=== PATIENT | female | born 1955 | race Caucasian/White ===

== ENCOUNTER → 2020-05-16 05:32 | Outpatient (CLI) | payer MEDICARE, OTHER, SELFPAY ==
--- NOTE | 2020-05-16 05:45 | NM_ITS ---
CLINICAL: 65-year-old female with history of right foot pain. LIMITED 99m Tc HMPAO LABELED LEUKOCYTE EXAMINATION COMPARISON: None available FINDINGS: Following the intravenous administration of 17.0 mCi of 99m Tc HMPAO labeled leukocytes, image acquisitions of the distal lower extremities at approximately 2.0 hours post radiopharmaceutical administration reveal: 1. There is symmetric radiopharmaceutical concentration defined in the bilateral visualized lower extremities without evidence of increased tracer distribution with meticulous attention paid to the right hind, mid and forefoot. NM/Inflammatory Process Limited IMPRESSION: 1. NEGATIVE 99m Tc HMPAO labeled leukocyte examination. There is no scintigraphic evidence of abnormal increased tracer distribution on review of the bilateral distal lower extremities. 2. Three phase bone scintigraphy may be of benefit for further evaluation. Electronically Signed: Edwardo Campos DO at 9:29 EDT Tel , Service support ,
== END ==
PROVIDERS: PCP Family Medicine; Referring Provider Podiatrist; Visit Provider Podiatrist
DX: M86.9 Osteomyelitis, unspecified (principal)
CPT/HCPCS: 78801; A9521

== ENCOUNTER → 2021-06-24 12:05 | Outpatient (CLI) | payer MEDICARE, OTHER, SELFPAY ==
[2021-06-24 14:58] LABS: Absolute Lymphocyte Count 1.93 X10^3/uL (0.83-4.51); Absolute Neutrophil Count 4.5 X10^3/uL (2.0-7.7); Basophil# 0.06 X10^3/uL; Basophil% 0.8 % (0-1); Eosinophil# 0.16 X10^3/uL; Eosinophils% 2.1 % (0-5); Hematocrit 33.2 % (37-47); Hemoglobin 10.8 g/dL (12.0-15.0); Lymphocyte # 1.93 X10^3/ul (0.83-4.51); Lymphocyte % 25.2 % (19-41); Mean Corp Hgb Conc 32.5 g/dL (32-36); Mean Corpuscular Hgb 28.3 pg (27.0-32.0); Mean Corpuscular Volume 86.9 fL (81-99); Mean Platelet Vol. 9.4 fl (6.2-12.0); Monocyte# 0.92 X10^3/uL; NRBC Flagged by Analyzer 0 % (0-5); Neutrophil # 4.54 X10^3/uL (2.7-7.7); Neutrophil % 59.1 % (47-70); Platelet Count 400 K/mm3 (150-450); RBC Distribution Width CV 12.3 % (11.6-14.6); RBC Distribution Width SD 39.3 fl (35.1-43.9); Red Blood Count 3.82 M/mm3 (4.2-5.4); White Blood Count 7.7 K/mm3 (4.4-11.0)
== END ==
PROVIDERS: PCP Family Medicine; Referring Provider Internal Medicine Pulmonary Disease; Visit Provider Internal Medicine Pulmonary Disease
DX: J45.50 Severe persistent asthma, uncomplicated (principal)
CPT/HCPCS: 36415; 85025

== ENCOUNTER 2021-09-11 10:03 | Outpatient (CLI) | payer MEDICARE, OTHER, SELFPAY ==
[2021-09-11 10:19] VITALS: BP 136/52; PULSE 73; RESP 18; TEMP 35.8; O2SAT 96; BMI 32.1
[2021-09-11] MEDS: Mepolizumab 100 MG VIAL SQ (11:09)
[2021-09-11 12:07] VITALS: BP 127/53; PULSE 59
== END 2021-09-11 23:59 | disposition short-term general hospital (02) ==
LOC: MEDOUTP 10:05
PROVIDERS: PCP Family Medicine; Referring Provider Internal Medicine Pulmonary Disease; Visit Provider Internal Medicine Pulmonary Disease
DX: J45.50 Severe persistent asthma, uncomplicated (principal)
CPT/HCPCS: 96372; J2182

== ENCOUNTER 2021-09-16 12:27 | Outpatient (CLI) | payer MEDICARE, OTHER, SELFPAY ==
--- NOTE | 2021-09-16 12:30 | RAD_ITS ---
STUDY: X-RAY CHEST REASON FOR EXAM: Female, 66 years old. Difficulty breathing TECHNIQUE: PA and lateral views of the chest. COMPARISON: None. FINDINGS: There are interstitial fibrotic changes of the lungs. There is no demonstrated pleural abnormality. Sternal cerclage wires and vascular clips are present from a prior sternotomy and coronary artery bypass graft procedure (CABG). Normal mediastinum and ivette. Normal visualized pulmonary arteries. Normal visualized aortic arch and descending thoracic aorta. There are diffuse degenerative changes of the visualized thoracic spine. There is degenerative osteoarthritis of the bilateral shoulders. There is no demonstrated abnormality of the visualized soft tissue structures of the upper abdomen. RAD/Chest PA and Lateral IMPRESSION: Chronic interstitial changes, no superimposed acute pulmonary process Electronically Signed: Sina Lagunas MD at 17:28 EST ,
== END 2021-09-16 23:59 | disposition short-term general hospital (02) ==
LOC: MTRAD 12:28
PROVIDERS: PCP Family Medicine; Referring Provider Internal Medicine Pulmonary Disease; Visit Provider Internal Medicine Pulmonary Disease
DX: J45.50 Severe persistent asthma, uncomplicated (principal)
CPT/HCPCS: 71046

== ENCOUNTER 2021-10-09 10:18 | Outpatient (CLI) | payer MEDICARE, OTHER, SELFPAY ==
[2021-10-09 10:34] VITALS: BP 122/56; PULSE 46; RESP 16; TEMP 36.2; O2SAT 98; BMI 32.9
[2021-10-09] MEDS: Mepolizumab 100 MG VIAL SQ (10:43)
[2021-10-09 11:22] VITALS: BP 121/57; PULSE 62; RESP 16; O2SAT 97
== END 2021-10-09 23:59 | disposition home or self-care (01) ==
LOC: MEDOUTP 10:18
PROVIDERS: PCP Family Medicine; Referring Provider Internal Medicine Pulmonary Disease; Visit Provider Internal Medicine Pulmonary Disease
DX: J45.50 Severe persistent asthma, uncomplicated (principal)
CPT/HCPCS: 96372; J2182

== ENCOUNTER 2021-11-06 13:14 | Outpatient (CLI) | payer MEDICARE, OTHER, SELFPAY ==
[2021-11-06 13:26] VITALS: BP 128/62; PULSE 52; RESP 16; TEMP 36.1; O2SAT 94; BMI 33.0
[2021-11-06] MEDS: Mepolizumab 100 MG VIAL SQ (13:43)
== END 2021-11-06 23:59 | disposition home or self-care (01) ==
LOC: MEDOUTP 13:14
PROVIDERS: PCP Family Medicine; Referring Provider Internal Medicine Pulmonary Disease; Visit Provider Internal Medicine Pulmonary Disease
DX: J45.50 Severe persistent asthma, uncomplicated (principal)
CPT/HCPCS: 96372; J2182

== ENCOUNTER → 2021-12-11 | Outpatient (CLI) | payer MEDICARE, OTHER, SELFPAY ==
[2021-12-11 14:10] VITALS: BP 126/55; PULSE 64; RESP 16; TEMP 35.7; O2SAT 96; BMI 33.6
[2021-12-11] MEDS: Mepolizumab 100 MG VIAL SQ (14:28)
[2021-12-11 15:08] VITALS: BP 132/90; PULSE 64; RESP 20; TEMP 35.9; O2SAT 94
== END | disposition home or self-care (01) ==
LOC: MEDOUTP 13:51
PROVIDERS: PCP Family Medicine; Referring Provider Internal Medicine Pulmonary Disease; Visit Provider Internal Medicine Pulmonary Disease
DX: J45.50 Severe persistent asthma, uncomplicated (principal)
CPT/HCPCS: 96372; J2182

== ENCOUNTER → 2021-12-23 | Outpatient (CLI) | payer MEDICARE, OTHER, SELFPAY ==
[2021-12-23 15:48] LABS: Erythrocyte Sedimentation Rate 6 mm/hr (0-30)
[2021-12-23 15:49] LABS: BNP,B-Type NATRIURETIC PEPTIDE 91.7 pg/mL (0-100)
[2021-12-23 16:21] LABS: CRP < 2.90 mg/L (0.0-3.0); Rheumatoid Factor < 10.0 IU/mL (<15)
[2021-12-25 16:11] LABS: ANTINUCLEAR ANTIBODIES DIRECT Positive (Negative)
[2021-12-25 16:15] LABS: Angiotensin Convert Enzyme 35 U/L (14-82)
== END | disposition home or self-care (01) ==
LOC: MTLAB 11:44
PROVIDERS: PCP Family Medicine; Referring Provider Internal Medicine Pulmonary Disease; Visit Provider Internal Medicine Pulmonary Disease
DX: J45.50 Severe persistent asthma, uncomplicated (principal); R06.00 Dyspnea, unspecified
CPT/HCPCS: 36415; 82164; 83880; 85652; 86038; 86140; 86431

== ENCOUNTER → 2021-12-30 | Outpatient (CLI) | payer MEDICARE, OTHER, SELFPAY ==
--- NOTE | 2021-12-30 07:24 | CT_ITS ---
HISTORY: Severe persistent asthma, uncomplicated. TECHNIQUE: Helically acquired images were obtained of the chest without contrast. High-resolution prone images. A radiation dose optimization technique was used for this scan. 809 images. COMPARISON: XR 09/16/2021. FINDINGS: LARGE AIRWAYS: Patent. LUNGS: Very mild peripheral reticular scarring and bronchiectasis. 3 mm groundglass right middle lobe nodule. Very mild bilateral lower lobe groundglass opacities. PLEURA: No pneumothorax or significant pleural effusion. HEART AND PERICARDIUM: Mild cardiomegaly. Midline sternotomy with coronary artery bypass graft. No pericardial effusion. VESSELS: Thoracic aorta nondilated. MEDIASTINUM AND CAPRICE: No pathologically enlarged lymph nodes. UPPER ABDOMEN: Small calcified gallstone. Left suprarenal surgical clips. BONES: Degenerative change. CT/Chest without Contrast IMPRESSION: Very mild bilateral lower lobe groundglass opacities, likely inflammatory. 3 mm right middle lobe groundglass pulmonary nodule. Consider 12 month follow-up. Mild bronchiectasis. Mild cardiomegaly. Electronically Signed: Loida Hall MD at 8:10 EDT ,
== END | disposition home or self-care (01) ==
LOC: CT 07:20
PROVIDERS: PCP Family Medicine; Referring Provider Internal Medicine Pulmonary Disease; Visit Provider Internal Medicine Pulmonary Disease
DX: J45.50 Severe persistent asthma, uncomplicated (principal)
CPT/HCPCS: 71250

== ENCOUNTER → 2022-01-08 | Outpatient (CLI) | payer MEDICARE, OTHER, SELFPAY ==
[2022-01-08 10:33] VITALS: BP 130/49; PULSE 55; RESP 18; TEMP 36.4; O2SAT 96
[2022-01-08] MEDS: Mepolizumab 100 MG VIAL SQ (10:56)
== END | disposition home or self-care (01) ==
LOC: MEDOUTP 10:24
PROVIDERS: PCP Family Medicine; Referring Provider Internal Medicine Pulmonary Disease; Visit Provider Internal Medicine Pulmonary Disease
DX: J45.50 Severe persistent asthma, uncomplicated (principal)
CPT/HCPCS: 96372; J2182

== ENCOUNTER → 2022-02-05 | Outpatient (CLI) | payer MEDICARE, OTHER, SELFPAY ==
[2022-02-05 10:28] VITALS: BP 178/56; PULSE 60; RESP 18; TEMP 36.1; O2SAT 96; BMI 33.5
[2022-02-05] MEDS: Mepolizumab 100 MG VIAL SQ (10:48)
[2022-02-05 11:12] VITALS: BP 153/64
== END | disposition home or self-care (01) ==
LOC: MEDOUTP 10:20
PROVIDERS: PCP Family Medicine; Referring Provider Internal Medicine Pulmonary Disease; Visit Provider Internal Medicine Pulmonary Disease
DX: J45.50 Severe persistent asthma, uncomplicated (principal)
CPT/HCPCS: 96372; J2182

== ENCOUNTER → 2022-02-24 | Outpatient (CLI) | payer MEDICARE, OTHER, SELFPAY ==
--- NOTE | 2022-02-24 08:02 | MRI_ITS ---
STUDY: MRI BRAIN WITH AND WITHOUT CONTRAST REASON FOR EXAM: Female, 66 years old. Idiopathic stabbing headache. TECHNIQUE: Standardized multiplanar fat and water weighted pulse sequences were obtained. 16ML IV DOTAREM was administered for the contrast portion of the examination. COMPARISON: None. FINDINGS: Normal size of the ventricles and extra-axial spaces for the patient''s age. Multiple T2 FLAIR hyperintensity foci in the white matter of both cerebral hemispheres are confluent in the forceps major. They are chronic white matter ischemic changes. None of them enhance with IV contrast. There are no abnormal enhancing lesions intraaxially and extra-axially. Normal bilateral basal ganglia. Normal thalami. There is no extra-axial fluid accumulation. Normal flow voids within the major intracranial circulation suggesting patency by spin echo criteria. Normal venous enhancement. There is no enhancing intra-axial or extra-axial abnormality. Normal sella turcica, pituitary gland, infundibular stalk, optic chiasm and hypothalamus. Normal tectal plate and pineal gland. Normal midbrain, nacho and medulla. Normal cerebellum. Normal basal cisterns. Normal bilateral temporal bones. Normal bilateral internal auditory canals. No demonstrated orbital abnormality, within the constraints of a routine brain study. Normal visualized paranasal sinuses. Normal calvarium and skull base. Normal visualized soft tissue structures. Normal visualized upper cervical spine. MRI/Brain W/WO Contrast IMPRESSION: 1. No MRI evidence of acute or subacute ischemic infarct, intracranial mass or acute intracranial abnormality. 2. Multiple chronic white matter ischemic changes in both cerebral hemispheres. 3. No abnormal enhancing lesions intraaxially and extra-axially. Electronically Signed: Maynor Ibrahim MD at 11:15 EDT ,
[2022-02-24 09:11] LABS: CREATININE FINGERSTICK 1.2 mg/dL (0.55-1.02)
== END | disposition home or self-care (01) ==
LOC: MRI 07:58
PROVIDERS: PCP Family Medicine; Referring Provider Physician Assistant; Visit Provider Physician Assistant
DX: G44.85 Primary stabbing headache (principal)
CPT/HCPCS: 70553; A9575

== ENCOUNTER → 2022-03-02 | Outpatient (CLI) | payer MEDICARE, OTHER, SELFPAY ==
--- NOTE | 2022-03-02 11:59 | RAD_ITS ---
STUDY: X-RAY CHEST REASON FOR EXAM: Female, 66 years old. PERSIS ANT ASTHMA TECHNIQUE: PA and lateral views of the chest. COMPARISON: Comparison is made with prior study dated 09/16/2021. FINDINGS: The lungs are clear and expanded. There is no demonstrated pleural abnormality. Sternal cerclage wires and vascular clips are present from a prior sternotomy and coronary artery bypass graft procedure (CABG). Normal mediastinum and ivette. Normal visualized pulmonary arteries. There is atherosclerotic calcification of the aortic arch with tortuosity. There is demineralization of the osseous structures. Normal visualized ribs, clavicles, and shoulders. Surgical clips are seen in the left upper quadrant. RAD/Chest PA and Lateral IMPRESSION: Stable examination. No acute abnormality is seen. Electronically Signed: Zackary Solo MD at 13:37 EDT ,
== END | disposition home or self-care (01) ==
PROVIDERS: PCP Family Medicine; Referring Provider Internal Medicine Pulmonary Disease; Visit Provider Internal Medicine Pulmonary Disease
DX: J45.50 Severe persistent asthma, uncomplicated (principal)
CPT/HCPCS: 71046

== ENCOUNTER → 2022-03-05 | Outpatient (CLI) | payer MEDICARE, OTHER, SELFPAY ==
[2022-03-05 13:23] VITALS: BP 108/62; PULSE 63; RESP 16; TEMP 36.3; O2SAT 96; BMI 32.7
[2022-03-05] MEDS: Mepolizumab 100 MG VIAL SQ (13:31)
== END | disposition home or self-care (01) ==
LOC: MEDOUTP 13:01
PROVIDERS: PCP Family Medicine; Referring Provider Internal Medicine Pulmonary Disease; Visit Provider Internal Medicine Pulmonary Disease
DX: J45.50 Severe persistent asthma, uncomplicated (principal)
CPT/HCPCS: 96372; J2182

== ENCOUNTER → 2022-04-02 | Outpatient (CLI) | payer MEDICARE, OTHER, SELFPAY ==
[2022-04-02 12:46] VITALS: BP 161/67; PULSE 57; RESP 16; TEMP 35.8; O2SAT 97; BMI 33.3
[2022-04-02] MEDS: Mepolizumab 100 MG VIAL SQ (13:05)
== END | disposition home or self-care (01) ==
LOC: MEDOUTP 12:34
PROVIDERS: PCP Family Medicine; Referring Provider Internal Medicine Pulmonary Disease; Visit Provider Internal Medicine Pulmonary Disease
DX: J45.50 Severe persistent asthma, uncomplicated (principal)
CPT/HCPCS: 96372; J2182

== ENCOUNTER → 2022-04-30 | Outpatient (CLI) | payer MEDICARE, OTHER, SELFPAY ==
[2022-04-30 13:16] VITALS: BP 107/66; PULSE 56; RESP 16; TEMP 36; O2SAT 96; BMI 33.5
[2022-04-30] MEDS: Mepolizumab 100 MG VIAL SQ (13:44)
== END | disposition home or self-care (01) ==
LOC: MEDOUTP 12:57
PROVIDERS: PCP Family Medicine; Referring Provider Internal Medicine Pulmonary Disease; Visit Provider Internal Medicine Pulmonary Disease
DX: J45.50 Severe persistent asthma, uncomplicated (principal)
CPT/HCPCS: 96372; J2182

== ENCOUNTER → 2022-05-28 | Outpatient (CLI) | payer MEDICARE, OTHER, SELFPAY ==
[2022-05-28 14:49] VITALS: BP 146/83; PULSE 55; RESP 18; TEMP 36.1; O2SAT 95; BMI 33.6
[2022-05-28] MEDS: Mepolizumab 100 MG VIAL SQ (15:00)
== END | disposition home or self-care (01) ==
LOC: MEDOUTP 14:43
PROVIDERS: PCP Family Medicine; Referring Provider Internal Medicine Pulmonary Disease; Visit Provider Internal Medicine Pulmonary Disease
DX: J45.50 Severe persistent asthma, uncomplicated (principal)
CPT/HCPCS: 96372; J2182

== ENCOUNTER → 2022-06-25 | Outpatient (CLI) | payer MEDICARE, OTHER, SELFPAY ==
[2022-06-25 13:09] VITALS: BP 155/71; PULSE 52; RESP 16; TEMP 36.3; O2SAT 97
[2022-06-25] MEDS: Mepolizumab 100 MG VIAL SQ (13:23)
== END | disposition home or self-care (01) ==
LOC: MEDOUTP 12:35
PROVIDERS: PCP Family Medicine; Referring Provider Internal Medicine Pulmonary Disease; Visit Provider Internal Medicine Pulmonary Disease
DX: J45.50 Severe persistent asthma, uncomplicated (principal)
CPT/HCPCS: 96372; J2182

== ENCOUNTER → 2022-07-30 | Outpatient (CLI) | payer MEDICARE, OTHER, SELFPAY ==
[2022-07-30 13:03] VITALS: BP 151/58; PULSE 66; RESP 16; TEMP 36.3; O2SAT 93
[2022-07-30] MEDS: Mepolizumab 100 MG VIAL SQ (13:18)
== END | disposition home or self-care (01) ==
LOC: MEDOUTP 12:53
PROVIDERS: PCP Family Medicine; Referring Provider Internal Medicine Pulmonary Disease; Visit Provider Internal Medicine Pulmonary Disease
DX: J45.50 Severe persistent asthma, uncomplicated (principal)
CPT/HCPCS: 96372; J2182

== ENCOUNTER → 2022-08-27 | Outpatient (CLI) | payer MEDICARE, OTHER, SELFPAY ==
[2022-08-27 12:56] VITALS: BP 140/55; PULSE 59; RESP 18; TEMP 36.7; O2SAT 94; BMI 33.0
[2022-08-27] MEDS: Mepolizumab 100 MG VIAL SQ (13:24)
--- NOTE | 2022-08-27 13:28 | NURSING ---
Pt. declines staying for observation following Nucala injection.
== END | disposition home or self-care (01) ==
PROVIDERS: PCP Family Medicine; Referring Provider Internal Medicine Pulmonary Disease; Visit Provider Internal Medicine Pulmonary Disease
DX: J45.50 Severe persistent asthma, uncomplicated (principal)
CPT/HCPCS: 96372; J2182

== ENCOUNTER → 2022-09-24 | Outpatient (CLI) | payer MEDICARE, OTHER, SELFPAY ==
[2022-09-24 13:12] VITALS: BP 139/54; PULSE 55; RESP 16; TEMP 36.1; O2SAT 93
[2022-09-24] MEDS: Mepolizumab 100 MG VIAL SQ (13:31)
== END | disposition home or self-care (01) ==
LOC: MEDOUTP 12:51
PROVIDERS: PCP Family Medicine; Referring Provider Internal Medicine Pulmonary Disease; Visit Provider Internal Medicine Pulmonary Disease
DX: J45.50 Severe persistent asthma, uncomplicated (principal)
CPT/HCPCS: 96372; J2182

== ENCOUNTER → 2022-10-22 | Outpatient (CLI) | payer MEDICARE, OTHER, SELFPAY ==
[2022-10-22 13:28] VITALS: BP 148/62; PULSE 89; RESP 16; TEMP 35.8; O2SAT 93; BMI 33.0
[2022-10-22] MEDS: Mepolizumab 100 MG VIAL SC (13:39)
== END | disposition home or self-care (01) ==
PROVIDERS: PCP Family Medicine; Referring Provider Internal Medicine Pulmonary Disease; Visit Provider Internal Medicine Pulmonary Disease
DX: J45.50 Severe persistent asthma, uncomplicated (principal)
CPT/HCPCS: 96372; J2182

== ENCOUNTER → 2022-11-19 | Outpatient (CLI) | payer MEDICARE, OTHER, SELFPAY ==
[2022-11-19 13:03] VITALS: BP 159/48; PULSE 66; RESP 16; O2SAT 96; BMI 33.3
[2022-11-19] MEDS: Mepolizumab 100 MG VIAL SQ (13:20)
== END | disposition home or self-care (01) ==
LOC: MEDOUTP 12:54
PROVIDERS: PCP Family Medicine; Referring Provider Internal Medicine Pulmonary Disease; Visit Provider Internal Medicine Pulmonary Disease
DX: J45.50 Severe persistent asthma, uncomplicated (principal)
CPT/HCPCS: 96372; J2182

== ENCOUNTER 2022-12-17 12:37 | Outpatient (CLI) | payer MEDICARE, OTHER, SELFPAY ==
[2022-12-17 13:05] VITALS: BP 114/46; PULSE 50; RESP 16; TEMP 36.1; O2SAT 96; BMI 34.4
[2022-12-17] MEDS: Mepolizumab 100 MG VIAL SQ (13:26)
== END 2022-12-17 12:38 | disposition home or self-care (01) ==
LOC: MEDOUTP 12:37
PROVIDERS: PCP Family Medicine; Referring Provider Internal Medicine Pulmonary Disease; Visit Provider Internal Medicine Pulmonary Disease
DX: J45.50 Severe persistent asthma, uncomplicated (principal)
CPT/HCPCS: 96372; J2182

== ENCOUNTER 2023-01-14 12:42 | Outpatient (CLI) | payer MEDICARE, OTHER, SELFPAY ==
[2023-01-14 12:48] VITALS: BP 148/56; PULSE 57; RESP 18; TEMP 36.2; O2SAT 97; BMI 33.8
[2023-01-14] MEDS: Mepolizumab 100 MG VIAL SQ (13:40)
== END 2023-01-14 12:43 | disposition home or self-care (01) ==
LOC: MEDOUTP 12:42
PROVIDERS: PCP Family Medicine; Referring Provider Internal Medicine Pulmonary Disease; Visit Provider Internal Medicine Pulmonary Disease
DX: J45.50 Severe persistent asthma, uncomplicated (principal)
CPT/HCPCS: 96372; J2182

== ENCOUNTER 2023-02-11 12:40 | Outpatient (CLI) | payer MEDICARE, OTHER, SELFPAY ==
[2023-02-11 12:48] VITALS: BP 147/83; PULSE 80; RESP 16; TEMP 36.1; O2SAT 95; BMI 33.6
[2023-02-11] MEDS: Mepolizumab 100 MG VIAL SQ (13:26)
== END 2023-02-11 12:41 | disposition home or self-care (01) ==
LOC: MEDOUTP 12:40
PROVIDERS: PCP Family Medicine; Referring Provider Internal Medicine Pulmonary Disease; Visit Provider Internal Medicine Pulmonary Disease
DX: J45.50 Severe persistent asthma, uncomplicated (principal)
CPT/HCPCS: 96372; J2182

== ENCOUNTER 2023-03-18 13:42 | Outpatient (CLI) | payer MEDICARE, OTHER, SELFPAY ==
[2023-03-18 13:49] VITALS: BP 138/57; PULSE 58; RESP 16; TEMP 35.9; O2SAT 95
[2023-03-18] MEDS: Mepolizumab 100 MG VIAL SC (14:13)
== END 2023-03-18 13:43 | disposition home or self-care (01) ==
LOC: MEDOUTP 13:42
PROVIDERS: PCP Family Medicine; Referring Provider Internal Medicine Pulmonary Disease; Visit Provider Internal Medicine Pulmonary Disease
DX: J45.50 Severe persistent asthma, uncomplicated (principal)
CPT/HCPCS: 96372; J2182

== ENCOUNTER 2023-04-23 13:39 | Outpatient (CLI) | payer MEDICARE, OTHER, SELFPAY ==
[2023-04-23 14:03] VITALS: BP 119/69; PULSE 49; RESP 18; TEMP 35.9; O2SAT 95; BMI 32.7
[2023-04-23] MEDS: Mepolizumab 100 MG VIAL SC (14:06)
== END 2023-04-23 13:40 | disposition home or self-care (01) ==
LOC: MEDOUTP 13:39
PROVIDERS: PCP Family Medicine; Referring Provider Internal Medicine Pulmonary Disease; Visit Provider Internal Medicine Pulmonary Disease
DX: J45.50 Severe persistent asthma, uncomplicated (principal)
CPT/HCPCS: 96372; J2182

== ENCOUNTER 2023-05-21 13:52 | Outpatient (CLI) | payer MEDICARE, OTHER, SELFPAY ==
[2023-05-21 14:15] VITALS: BP 145/45; PULSE 92; RESP 18; TEMP 36.2; O2SAT 95; BMI 33.6
[2023-05-21] MEDS: Mepolizumab 100 MG VIAL SC (14:30)
== END 2023-05-21 13:53 | disposition home or self-care (01) ==
LOC: MEDOUTP 13:52
PROVIDERS: PCP Family Medicine; Referring Provider Internal Medicine Pulmonary Disease; Visit Provider Internal Medicine Pulmonary Disease
DX: J45.50 Severe persistent asthma, uncomplicated (principal)
CPT/HCPCS: 96372; J2182

== ENCOUNTER 2023-06-21 14:22 | Outpatient (CLI) | payer MEDICARE, OTHER, SELFPAY ==
[2023-06-21 14:30] VITALS: BP 130/53; PULSE 48; RESP 18; TEMP 35.8; O2SAT 92
[2023-06-21] MEDS: Mepolizumab 100 MG VIAL SC (15:08)
== END 2023-06-21 14:23 | disposition home or self-care (01) ==
LOC: MEDOUTP 14:22
PROVIDERS: PCP Family Medicine; Referring Provider Internal Medicine Pulmonary Disease; Visit Provider Internal Medicine Pulmonary Disease
DX: J45.50 Severe persistent asthma, uncomplicated (principal)
CPT/HCPCS: 96372; J2182

== ENCOUNTER 2023-07-22 14:37 | Outpatient (CLI) | payer MEDICARE, OTHER, SELFPAY ==
[2023-07-22 14:46] VITALS: BP 106/50; PULSE 84; RESP 16; TEMP 35.8; O2SAT 96; BMI 32.3
[2023-07-22] MEDS: Mepolizumab 100 MG VIAL SC (15:05)
== END 2023-07-22 14:38 | disposition home or self-care (01) ==
LOC: MEDOUTP 14:37
PROVIDERS: PCP Family Medicine; Referring Provider Internal Medicine Pulmonary Disease; Visit Provider Internal Medicine Pulmonary Disease
DX: J45.50 Severe persistent asthma, uncomplicated (principal)
CPT/HCPCS: 96372; J2182

== ENCOUNTER 2023-08-19 13:51 | Outpatient (CLI) | payer MEDICARE, OTHER, SELFPAY ==
[2023-08-19 14:30] VITALS: BP 139/67; PULSE 65; RESP 16; TEMP 36.3; O2SAT 98; BMI 32.1
[2023-08-19] MEDS: Mepolizumab 100 MG VIAL SC (14:37)
== END 2023-08-19 13:52 | disposition home or self-care (01) ==
LOC: MEDOUTP 13:54
PROVIDERS: PCP Family Medicine; Referring Provider Internal Medicine Pulmonary Disease; Visit Provider Internal Medicine Pulmonary Disease
DX: J45.50 Severe persistent asthma, uncomplicated (principal)
CPT/HCPCS: 96372; J2182

== ENCOUNTER 2023-11-08 14:06 | Outpatient (CLI) | payer MEDICARE, OTHER, SELFPAY ==
[2023-11-08 14:29] VITALS: BP 140/44; PULSE 51; RESP 18; TEMP 36.1; O2SAT 96
[2023-11-08] MEDS: Mepolizumab 100 MG VIAL SC (14:55)
== END 2023-11-08 14:07 | disposition home or self-care (01) ==
LOC: MEDOUTP 14:06
PROVIDERS: PCP Family Medicine; Referring Provider Internal Medicine Pulmonary Disease; Visit Provider Internal Medicine Pulmonary Disease
DX: J45.50 Severe persistent asthma, uncomplicated (principal)
CPT/HCPCS: 96372; J2182

== ENCOUNTER 2023-12-17 13:21 | Outpatient (CLI) | payer MEDICARE, OTHER, SELFPAY ==
[2023-12-17 13:44] VITALS: BP 138/57; PULSE 66; RESP 16; TEMP 36.3; O2SAT 95
[2023-12-17] MEDS: Mepolizumab 100 MG VIAL SC (13:54)
== END 2023-12-17 13:22 | disposition home or self-care (01) ==
LOC: MEDOUTP 13:21
PROVIDERS: PCP Family Medicine; Referring Provider Internal Medicine Pulmonary Disease; Visit Provider Internal Medicine Pulmonary Disease
DX: J45.50 Severe persistent asthma, uncomplicated (principal)
CPT/HCPCS: 96372; J2182

== ENCOUNTER 2024-01-13 13:37 | Outpatient (CLI) | payer MEDICARE, OTHER, SELFPAY ==
[2024-01-13 13:47] VITALS: BP 133/68; PULSE 50; RESP 16; TEMP 35.5; O2SAT 96; BMI 32.7
[2024-01-13] MEDS: Mepolizumab 100 MG VIAL SC (14:06)
== END 2024-01-13 23:59 | disposition home or self-care (01) ==
LOC: MEDOUTP 13:37
PROVIDERS: PCP Family Medicine; Referring Provider Internal Medicine Pulmonary Disease; Visit Provider Internal Medicine Pulmonary Disease
DX: J45.50 Severe persistent asthma, uncomplicated (principal)
CPT/HCPCS: 96372; J2182

== ENCOUNTER 2024-02-10 13:51 | Outpatient (CLI) | payer MEDICARE, OTHER, SELFPAY ==
[2024-02-10 14:02] VITALS: BP 158/62; PULSE 58; RESP 16; TEMP 36.3; O2SAT 96
[2024-02-10] MEDS: Mepolizumab 100 MG VIAL SC (14:15)
== END 2024-02-10 23:59 | disposition home or self-care (01) ==
LOC: MEDOUTP 13:51
PROVIDERS: PCP Family Medicine; Referring Provider Internal Medicine Pulmonary Disease; Visit Provider Internal Medicine Pulmonary Disease
DX: J45.50 Severe persistent asthma, uncomplicated (principal)
CPT/HCPCS: 96372; J2182

== ENCOUNTER 2024-03-09 13:40 | Outpatient (CLI) | payer MEDICARE, OTHER, SELFPAY ==
[2024-03-09 13:54] VITALS: BP 163/53; PULSE 72; RESP 16; TEMP 35.8; O2SAT 98; BMI 32.6
[2024-03-09] MEDS: Mepolizumab 100 MG VIAL SC (14:04)
== END 2024-03-09 23:59 | disposition home or self-care (01) ==
LOC: MEDOUTP 13:40
PROVIDERS: PCP Family Medicine; Referring Provider Internal Medicine Pulmonary Disease; Visit Provider Internal Medicine Pulmonary Disease
DX: J45.50 Severe persistent asthma, uncomplicated (principal)
CPT/HCPCS: 96372; J2182

== ENCOUNTER 2024-04-06 13:56 | Outpatient (CLI) | payer MEDICARE, OTHER, SELFPAY ==
[2024-04-06 14:13] VITALS: BP 142/86; PULSE 58; RESP 16; TEMP 36.2; O2SAT 98
[2024-04-06] MEDS: Mepolizumab 100 MG VIAL SC (14:42)
== END 2024-04-06 23:59 | disposition home or self-care (01) ==
LOC: MEDOUTP 13:56
PROVIDERS: PCP Family Medicine; Referring Provider Internal Medicine Pulmonary Disease; Visit Provider Internal Medicine Pulmonary Disease
DX: J45.50 Severe persistent asthma, uncomplicated (principal)
CPT/HCPCS: 96372; J2182

== ENCOUNTER 2024-07-06 12:01 | Outpatient (CLI) | payer MEDICARE, OTHER, SELFPAY ==
[2024-07-06 13:04] VITALS: BP 161/62; PULSE 64; RESP 20; TEMP 36.1; O2SAT 98; BMI 33.3
[2024-07-06] MEDS: Mepolizumab 100 MG VIAL SC (13:21)
== END 2024-07-06 23:59 | disposition home or self-care (01) ==
LOC: MEDOUTP 12:01
PROVIDERS: PCP Family Medicine; Referring Provider Internal Medicine Pulmonary Disease; Visit Provider Internal Medicine Pulmonary Disease
DX: J45.50 Severe persistent asthma, uncomplicated (principal)
CPT/HCPCS: 96372; J2182

== ENCOUNTER 2024-08-14 12:59 | Outpatient (CLI) | payer MEDICARE, OTHER, SELFPAY ==
[2024-08-14 13:04] VITALS: BP 129/58; PULSE 51; RESP 18; TEMP 36.1; O2SAT 96; BMI 33.0
[2024-08-14] MEDS: Mepolizumab 100 MG VIAL SC (13:41)
== END 2024-08-14 23:59 | disposition home or self-care (01) ==
LOC: MEDOUTP 12:59
PROVIDERS: PCP Family Medicine; Referring Provider Internal Medicine Pulmonary Disease; Visit Provider Internal Medicine Pulmonary Disease
DX: J45.50 Severe persistent asthma, uncomplicated (principal)
CPT/HCPCS: 96372; J2182

== ENCOUNTER 2024-09-07 13:56 | Outpatient (CLI) | payer MEDICARE, OTHER, SELFPAY ==
[2024-09-07 14:03] VITALS: BP 146/53; PULSE 69; RESP 16; TEMP 35.7; O2SAT 94
[2024-09-07] MEDS: Mepolizumab 100 MG VIAL SC (14:36)
== END 2024-09-07 23:59 | disposition home or self-care (01) ==
LOC: MEDOUTP 13:57
PROVIDERS: PCP Family Medicine; Referring Provider Internal Medicine Pulmonary Disease; Visit Provider Internal Medicine Pulmonary Disease
DX: J45.50 Severe persistent asthma, uncomplicated (principal)
CPT/HCPCS: 96372; J2182

== ENCOUNTER 2024-11-06 12:58 | Outpatient (CLI) | payer MEDICARE, OTHER, SELFPAY ==
[2024-11-06 13:10] VITALS: BP 131/64; PULSE 56; RESP 18; TEMP 36.1; O2SAT 94
[2024-11-06] MEDS: Mepolizumab 100 MG VIAL SC (13:37)
== END 2024-11-06 23:59 | disposition home or self-care (01) ==
LOC: MEDOUTP 12:58
PROVIDERS: PCP Family Medicine; Referring Provider Internal Medicine Pulmonary Disease; Visit Provider Internal Medicine Pulmonary Disease
DX: J45.50 Severe persistent asthma, uncomplicated (principal)
CPT/HCPCS: 96372; J2182

== ENCOUNTER 2024-12-06 12:42 | Outpatient (CLI) | payer MEDICARE, OTHER, SELFPAY ==
[2024-12-06 12:53] VITALS: BP 124/37; PULSE 51; RESP 18; TEMP 35.9; O2SAT 94
[2024-12-06] MEDS: Mepolizumab 100 MG VIAL SC (13:24)
== END 2024-12-06 23:59 | disposition home or self-care (01) ==
PROVIDERS: PCP Family Medicine; Referring Provider Internal Medicine Pulmonary Disease; Visit Provider Internal Medicine Pulmonary Disease
DX: J45.50 Severe persistent asthma, uncomplicated (principal)
CPT/HCPCS: 96372; J2182

== ENCOUNTER 2025-01-03 12:15 | Outpatient (CLI) | payer MEDICARE, OTHER, SELFPAY ==
[2025-01-03 12:30] VITALS: BP 144/73; PULSE 63; RESP 16; TEMP 36.2; O2SAT 94
[2025-01-03] MEDS: Mepolizumab 100 MG VIAL SC (13:03)
== END 2025-01-03 23:59 | disposition home or self-care (01) ==
PROVIDERS: PCP Family Medicine; Referring Provider Internal Medicine Pulmonary Disease; Visit Provider Internal Medicine Pulmonary Disease
DX: J45.50 Severe persistent asthma, uncomplicated (principal)
CPT/HCPCS: 96372; J2182

== ENCOUNTER 2025-02-09 13:25 | Outpatient (CLI) | payer MEDICARE, OTHER, SELFPAY ==
[2025-02-09 13:33] VITALS: BP 133/50; PULSE 62; RESP 16; TEMP 36.1; O2SAT 94
[2025-02-09] MEDS: Mepolizumab 100 MG VIAL SC (13:51)
== END 2025-02-09 23:59 | disposition home or self-care (01) ==
LOC: MEDOUTP 13:25
PROVIDERS: PCP Family Medicine; Referring Provider Internal Medicine Pulmonary Disease; Visit Provider Internal Medicine Pulmonary Disease
DX: J45.50 Severe persistent asthma, uncomplicated (principal)
CPT/HCPCS: 96372; J2182

== ENCOUNTER 2025-03-20 12:40 | Outpatient (CLI) | payer MEDICARE, OTHER, SELFPAY ==
[2025-03-20 13:01] VITALS: BP 111/51; PULSE 80; RESP 16; TEMP 35.7; O2SAT 94
== END 2025-03-20 23:59 | disposition home or self-care (01) ==
LOC: MEDOUTP 12:41
PROVIDERS: PCP Family Medicine; Referring Provider Internal Medicine Pulmonary Disease; Visit Provider Internal Medicine Pulmonary Disease
DX: J45.50 Severe persistent asthma, uncomplicated (principal)
CPT/HCPCS: 96372; J2182

== ENCOUNTER 2025-05-14 09:00 | Outpatient (CLI) | payer MEDICARE, OTHER, SELFPAY ==
--- OUTSIDE RECORDS SUMMARY | 2025-02-22 16:22 | XMS RPT_ITS ---
Demographics Address [address] [place], [place] [id number] Preferred Language EN Marital Status Anabaptist Affiliation Unknown Race Ethnic Group Not Or Lati no Author Name Auto Generated Organization OHIP Care Team Providers Care Electric Utility Lineworker Name Role Phone FITO KEBEDE Attending Unava ilable SELF Referring Unavailable [facility] Primary Care Unavailable FITO KEBEDE Attending Unava ilable FITO KEBEDE Referring Unava ilable [facility] Primary Care Unavailable BRITTANY POLK MD Admitting Unavailable BRITTANY POLK MD Primary Care Unavailable BRITTANY POLK MD Attending Unavailable PHILIP UREÑA Consulting Unavailable PHILIP URÑEA Referring Unavailable PROVIDER, UNKNOWN Consulting Unavailable PROVIDER, UNKNOWN Consulting Unavailable PROVIDER, UNKNOWN Consulting Unavailable ROSS FERNÁNDEZ Admitting Unavailable ROSS FERNÁNDEZ Primary Care Unavailable ROSS FERNÁNDEZ Attending Unavailable ANA MODI-C Referring Unavailabl e PHILIP UREÑA Consulting Unavailable PROVIDER, UNKNOWN Consulting Unavailable PROVIDER, UNKNOWN Consulting Unavailable PROVIDER, UNKNOWN Consulting Unavailable FITO KEBEDE Referring Unava ilable [facility] Primary Care Unavailable ARYAN MOORE Attending Unavailable SELF Referring Unavailable [facility] Primary Care Unavailable ARYAN MOORE Attending Unavailable ARYAN MOORE Referring Unavailable [facility] Primary Care Unavailable LAZARO HEMPHILL Referring Unavailable [facility] Primary Care Unavailable FITO KEBEDE Referring Unava PHILIP Urias Primary Care Unavailable LARD, ARYAN L Attending Unavailable LAZARO HEMPHILL Referring Unavailable PHILIP UREÑA Primary Care Unavailable PROBLEMS DATE TYPE CONDITION / CODE ATTENDING STATUS ADIN Jordan 03/23/2024 Active 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) / E11.22(ICD-10) ARYAN MOORE Active [facility] 03/23/2024 Active 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) / I12.9(ICD-10) ARYAN MOORE Active [facility] 03/23/2024 Active 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) / N18.30(ICD-10) ARYAN MOORE [facility] 03/23/2024 Active S/P PTCA (percut aneous transluminal coronary angioplasty) / Z98.61(ICD-10) ARYAN MOORE Active [facility] 01/25/2025 Active Benign hypertens gissel kidney disease / I12.9(ICD-10) ARYAN MOORE Active [facility] 03/04/2016 Active Type 2 diabetes mellitus with hyperglycemia, without long-term current use of insulin (HCC) / E11.65(ICD-10) FITO KEBEDE Active [facility] 01/23/2025 Active Thyroid function study abnormality / R94.6(ICD-10) FITO KEBEDE Active [facility] 01/23/2025 Active Alzheimer's dise ase (HCC) / G30.9(ICD-10) FITO KEBEDE Active [facility] 01/23/2025 Active Alzheimer's dise ase (HCC) / F02.80(ICD-10) FITO KEBEDE Active [facility] 01/23/2025 Active Screening for di abetic retinopathy / Z13.5(ICD-10) FITO KEBEDE [facility] 03/23/2024 Active CKD stage G3b/A2 , GFR 30-44 and albumin creatinine ratio 30-299 mg/g (HCC) / N18.32(ICD-10) NA Active [facility] 06/05/2019 Active Type 2 diabetes mellitus with stage 3b chronic kidney disease, without long-term current use of insulin (HCC) / E11.22(ICD-10) FITO KEBEDE Active [facility] 06/05/2019 Active Type 2 diabetes mellitus with stage 3b chronic kidney disease, without long-term current use of insulin (HCC) / N18.32(ICD-10) FITO KEBEDE Active [facility] 08/02/2024 Active Diabetic polyneu ropathy associated with type 2 diabetes mellitus (HCC) / E11.42(ICD-10) FITO KEBEDE Active [facility] 08/02/2024 Active Cognitive impair ment / R41.89(ICD-10) FITO KEBEDE Active [facility] 03/23/2024 Active Chronic congesti ve heart failure, unspecified heart failure type (HCC) / I50.9(ICD-10) NA [facility] 03/23/2024 Active Other osteoporos is, unspecified pathological fracture presence / M81.8(ICD-10) NA [facility] 03/23/2024 Active Gastroesophageal reflux disease, unspecified whether esophagitis present / K21.9(ICD-10) [facility] 03/23/2024 Active Cerebrovascular accident (CVA), unspecified mechanism (HCC) / I63.9(ICD-10) [facility] 03/23/2024 Active Uncomplicated as thma, unspecified asthma severity, unspecified whether persistent / J45.909(ICD-10) [facility] 11/30/2018 Active Myocardial infar ction, unspecified NH type, unspecified artery (HCC) / I21.9(ICD-10) NA Active [facility] PROCEDURES No Procedure Records Found RESULTS TSH Collected: 5 7:16 AM Status: F Source: [facility] TYPE CODE TESTS RESULT OUT OF RANGE REFERENCE UNITS LAB TSH(LOINC) TSH 2.12 0.35 - 3.74 uIU/ml Performed By: #### [id number] ## ## [facility],[address] [place] [address] T4 (THYROXINE) TOTAL Collected: 025 7:16 AM Status: F Source: [facility] TYPE CODE TESTS RESULT OUT OF RANGE REFERENCE UNITS LAB T4 (THYROXINE) TOTAL(LOINC) T4 (THYROXINE) TOTAL Result Comment: THYROXINE(T4 ) LAB T4(LOINC) T4 5.8 4.7 - 13.3 ug/dl Performed By: #### [id number] ## ## [facility],[address] [place], [place] [id number] MANDYN Observed: 05/08/2025 12:00 AM Status: COMPLETED Source: [facility] Telephone (JOELN) PRAVEEN PARKINSON ([id number]) 1955 F Date Time Provider Department 05/08/25 ARYAN MOORE During your visit today, we recorded the following information about you: Aryan Moore APRN.CNP 05/08/2025 12:08 PM Signed Spoke with pt's , he updated me on recent events. Advised that [facility]. Pt sustained multiple falls and he is unable to care for her at home. Will cancel 05/10 appointment for now. Will send order for bloodwork. Once that is completed, will inform me and we will reschedule. Aryan Moore APRN.CNP Allergies As of Date: 05/08/2025 Noted Allergy Reaction AUGMENTIN (AMOXICILLIN-POT CLAVUL*06/01/2018 8 - GI Upset Comments: Diarrhea, vomitting LISINOPRIL 02/13/2016 3 - Cough Date Reviewed: 01/23/2025 Reviewed by: Fito Kebede DO - Fully Assessed Prescriptions as of 05/08/2025 - amitriptyline (ELAVIL) 10 mg tablet Take 2 tablets by mouth daily at bedtime. - divalproex DR (DEPAKOTE) 125 mg EC tablet Take 1 tablet by mouth two times a day. - SITagliptin phosphate (JANUVIA) 50 mg tablet Take 1 tablet by mouth once daily. - irbesartan (AVAPRO) 150 mg tablet TAKE 1 TABLET DAILY - isosorbide mononitrate ER (IMDUR) 30 mg 24 hr tablet Take 1 tablet by mouth two times a day. - amLODIPine (NORVASC) 5 mg tablet Take 1 tablet by mouth once daily. - QNASL 80 mcg/actuation - cholecalciferol (VITAMIN D-3) 50 mcg (2,000 unit) tablet Take 1 tablet by mouth once daily. - mepolizumab (NUCALA SUBCUTANEOUS) Inject subcutaneously. Inject once a month - gabapentin (NEURONTIN) 100 mg capsule Daily at bedtime - montelukast (SINGULAIR) 10 mg tablet Take 1 tablet by mouth daily at bedtime. - fluticasone-vilanterol (BREO ELLIPTA) 100-25 mcg/dose inhaler Inhale 1 Inhalation as instructed once daily. - cetirizine (ZYRTEC) 10 mg tablet Take 1 tablet by mouth once daily. - furosemide (LASIX) 40 mg tablet Take 20 mg by mouth once daily. - nebivolol (BYSTOLIC) 10 mg tablet Take 10 mg by mouth once daily. - Fenofibrate (LOFIBRA) 160 mg tablet Take 160 mg by mouth once daily. - atorvastatin (LIPITOR) 80 mg tablet Take 80 mg by mouth once daily. - nitroglycerin sublingual (NITROQUICK) 0.3 mg SL tablet Dissolve 0.3 mg under the tongue every 5 minutes as needed. - ranolazine SR (RANEXA) 1,000 mg tab ER 12 hr Take by mouth. - clopidogrel (PLAVIX) 75 mg tablet Take 1 tablet by mouth once daily. - aspirin, enteric coated (ASPIRIN, ENTERIC COATED) 81 mg EC tablet Take 1 tablet by mouth once daily. - citalopram (CELEXA) 20 mg tablet Take 1 tablet by mouth once daily. - multivitamin tablet Take 1 tablet by mouth once daily. Problem List As Of Date 05/08/2025 Noted Resolved Cellulitis and abscess of toe, unspecified [L03*04/17/2011 Obesity [E66.9] Hyperlipidemia [E78.5] Hypertension [I10] Hypoglycemia associated with diabetes (HCC) [E1* 11/29/2017 Type 2 diabetes mellitus with hyperglycemia (HC* Class 1 obesity due to excess calories without *05/31/2017 Abnormal kidney function [N28.9] 05/31/2017 CKD (chronic kidney disease) stage 3, GFR 30-59*06/03/2018 Myocardial infarction (HCC) [I21.9] 11/30/2018 Type 2 diabetes mellitus with stage 3 chronic k*06/05/2019 Controlled type 2 diabetes with neuropathy (HCC*02/10/2023 Asthma [J45.909] 03/23/2024 CVA (cerebral vascular accident) ([facility]) [I63.9] 03/23/2024 HTN (hypertension) [I10] 03/23/2024 S/P PTCA (percutaneous transluminal coronary an*03/23/2024 GERD (gastroesophageal reflux disease) [K21.9] 03/23/2024 Osteoporosis [M81.0] 03/23/2024 Chronic congestive heart failure ([facility]) [I50.9] 03/23/2024 Type 2 DM with CKD stage 3 and hypertension (HC*03/23/2024 CKD stage G3b/A2, GFR 30-44 and albumin creatin*03/23/2024 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] 03/23/2024 Encounter Status:Closed by ARYAN MOORE on 05/08/25 CNCO Observed: 05/08/2025 12:00 AM Status: COMPLETED Source: [facility] Letter Text AMI+NORTRIPTYLINE BL Collected: 025 11:33 AM Status: F Source: [facility] Order Comment: Specimen Type : BLOOD SPECIMEN Ordering Facility: [facility] Address: [address] [place], [place] [id number] TYPE CODE TESTS RESULT OUT OF RANGE REFERENCE UNITS LAB AMITRP AMITRIPTYLINE 27 ng/mL LAB NORTRT NORTRIPTYLINE 31 Low 50-150 ng/mL LAB AMNORT AMITRIPTYLINE/NO RTRIPTYLINE TOTAL 58 Low 95-250 ng/mL Result Comment: INTERPRETIVE INFORMATION: Amitriptyline/Nortriptyline, Total, SP Therapeutic Range: Total drug (Amitriptyline and Nortriptyline): 95-250 ng/mL Toxic: Greater than 500 ng/mL Toxic concentrations may cause anticholinergic effects, cardiac abnormalities and seizures. This test was developed and its performance characteristics determined by [employer]. It has not been cleared or approved by the [place] Food and Drug Administration. This test was performed in a CLIA certified laboratory and is intended for clinical purposes. Performed By: [facility] [address] [place] [address] Fisher Troll Line: Kyle Milligan MD, PhD CLIA Number: [id number] Performed By: #### AMINOR ## ## [facility] CLIA [id number] [address] [place] [address] AMITRIPTYLINE NORTRIPTYLINE [CCL] Collected: 04/20/20 7:49 AM Status: F Source: [facility] TYPE CODE TESTS RESULT OUT OF RANGE REFERENCE UNITS LAB AMITRIPTYLINE NORTRIPTYLINE [CCL](LOINC) AMITRIPTYLINE NORTRIPTYLINE [CCL] Result Comment: _AMITRIPTYL INE NORTRIPTYLINE [CCL]_ SEE SEPERATE REPORT Performed By: #### [id number] ## ## [address] [address] TSH Collected: 5:06 AM Status: F Source: [facility] TYPE CODE TESTS RESULT OUT OF RANGE REFERENCE UNITS LAB TSH(LOINC) TSH 3.74 0.35 - 3.74 uIU/ml Performed By: #### [id number] ## ## [address] [address] T4 (THYROXINE) TOTAL Collected: 025 5:06 AM Status: F Source: [facility] TYPE CODE TESTS RESULT OUT OF RANGE REFERENCE UNITS LAB T4 (THYROXINE) TOTAL(LOINC) T4 (THYROXINE) TOTAL Result Comment: THYROXINE(T4 ) LAB T4(LOINC) T4 6.1 4.7 - 13.3 ug/dl Performed By: #### [id number] ## ## [address] [address] AMITRIPTYLINE NORTRIPTYLINE [CCL] Collected: 04/11/20 25 5:30 AM Status: F Source: [facility] TYPE CODE TESTS RESULT OUT OF RANGE REFERENCE UNITS LAB AMITRIPTYLINE NORTRIPTYLINE [CCL](LOINC) AMITRIPTYLINE NORTRIPTYLINE [CCL] Result Comment: _AMITRIPTYLI NE NORTRIPTYLINE [CCL]_ SEE SCANNED REPORT Performed By: #### [id number] ## ## [facility],[address] [place] [address] AMI+NORTRIPTYLINE BL Collected: 04/11/2025 5:30 AM S tatus: F Source: [facility] Order Comment: Specimen Type : BLOOD SPECIMEN Ordering Facility: [facility] Address: [address] [place] [address] TYPE CODE TESTS RESULT OUT OF RANGE REFERENCE UNITS LAB AMITRP AMITRIPTYLINE 24 ng/mL LAB NORTRT NORTRIPTYLINE 27 Low 50-150 ng/mL LAB AMNORT AMITRIPTYLINE/NO RTRIPTYLINE TOTAL 51 Low 95-250 ng/mL Result Comment: INTERPRETIVE INFORMATION: Amitriptyline/Nortriptyline, Total, SP Therapeutic Range: Total drug (Amitriptyline and Nortriptyline): 95-250 ng/mL Toxic: Greater than 500 ng/mL Toxic concentrations may cause anticholinergic effects, cardiac abnormalities and seizures. This test was developed and its performance characteristics determined by [employer]. It has not been cleared or approved by the [place] Food and Drug Administration. This test was performed in a CLIA certified laboratory and is intended for clinical purposes. Performed By: [facility] [address] [place], [place] [id number] Fisher Troll Line: Kyle Milligan MD, PhD CLIA Number: [id number] Performed By: #### AMINOR ## ## [facility] CLIA [id number] [address] [place], [place] [id number] CBC (NO DIFF) Collected: 03/19/2025 6:54 AM Status: F Source: [facility] TYPE CODE TESTS RESULT OUT OF RANGE REFERENCE UNITS LAB CBC (NO DIFF)(LOINC) CBC (NO DIFF) Result Comment: CBC(WITHOUT DIFFERENTIAL) LAB WBC(LOINC) WBC 8.4 4.5 - 10.8 x 10EE3/UL LAB RBC(LOINC) RBC 3.72 Low 4.10 - 5.30 x 10EE6/UL LAB HEMOGLOBIN(LOIN C) HEMOGLOBIN 11.2 Low 12.0 - 16.0 g/dl LAB HEMATOCRIT(LOIN C) HEMATOCRIT 33.9 Low 34.0 - 46.0 % LAB MCV(LOINC) MCV 91 80 - 99 fl LAB MCH(LOINC) MCH 30 27 - 33 pg LAB MCHC(LOINC) MCHC 33 32 - 36 X10 3 LAB RDW/CV(LOINC) RDW/CV 13.1 12.0 - 15.6 % LAB PLATELET(LOINC) PLATELET 394 150 - 450 x10EE 3/UL LAB MPV(LOINC) MPV 7.3 6.6 - 10.5 fl Performed By: #### [id number] ## ## [address] [address] VITAMIN D, 25 HYDROXY Collected: 2024 6:54 AM Status: F Source: [facility] TYPE CODE TESTS RESULT OUT OF RANGE REFERENCE UNITS LAB VitD(LOINC) VitD 33.40 30.00 - 100 ng/mL Result Comment: 25-OHD3 billy cates both endogenous production and supplementation. 25-OHD2 is an indicator of exogenous sources, such as diet or supplementation. Therapy is based on measurement of Total 25-OHD, with levels <20 ng/mL indicative of Vitamin D deficiency, while levels between 20 ng/mL and 30 ng/mL suggest insufficiency. Optimal levels are >=30ng/mL. Vitamin D, 25-OH D3 Not Established Vitamin D, 25-OH D2 Not Established Performed By: #### [id number] ## ## [address] [address] LIPID PROFILE Collected: 03/12/2025 7:22 AM Status: F Source: [facility] TYPE CODE TESTS RESULT OUT OF RANGE REFERENCE UNITS LAB LIPID PROFILE(LOINC) LIPID PROFILE Result Comment: LIPID PROFIL E LAB TRIGLYCERIDE(ELENI NC) TRIGLYCERIDE 323 High 0 - 150 mg/dl LAB CHOLESTEROL(LOIN C) CHOLESTEROL 185 0 - 240 mg/dl LAB HDL(LOINC) HDL 32 Low 40 - 60 mg/dl LAB CHOL/HDL(LOINC) CHOL/HDL 5.8 High 0.0 - 5.0 LAB LDL(LOINC) LDL 88 0 - 129 mg/dl Performed By: #### [id number] ## ## [facility],[address] [place] [address] CMP WITH EGFR Collected: 5 7:22 AM Status: F Source: [facility] TYPE CODE TESTS RESULT OUT OF RANGE REFERENCE UNITS LAB CMP with eGFR(LOINC) CMP with eGFR Result Comment: COMPREHENSIV E METABOLIC PANEL LAB SODIUM(LOINC) SODIUM 136 136 - 145 mmol/l LAB POTASSIUM(LOIN C) POTASSIUM 4.7 3.5 - 5.1 mmol/L LAB CHLORIDE(LOINC ) CHLORIDE 100 98 - 107 mmol/L LAB CO2(LOINC) CO2 29.7 21.0 - 32.0 mmol/L LAB GLUCOSE(LOINC) GLUCOSE 100 74 - 106 mg/dl LAB BUN(INC) BUN 37 High 7 - 18 mg/dl LAB CREATININE(ELENI NC) CREATININE 2.35 High 0.55 - 1.02 mg/dl LAB AST/SGOT(LOINC ) AST/SGOT 24 13 - 39 U/L LAB ALK PHOS(LOINC) ALK PHOS 42 Low 46 - 116 U/L LAB CALCIUM(LOINC) CALCIUM 10.3 High 8.5 - 10.1 mg/dl LAB TOTAL PROTEIN(LOINC) TOTAL PROTEIN 7.8 6.4 - 8.2 g/dl LAB ALBUMIN(LOINC) ALBUMIN 3.9 3.4 - 5.0 g/dL LAB GLOBULIN(LOINC ) GLOBULIN 3.9 High 1.5 - 3.8 G/DL LAB A/G RATIO(LOINC) A/G RATIO 1.0 0.9 - 1.6 LAB TOTAL BILI(LOINC) TOTAL BILI 0.5 0.2 - 1.0 mg/dl LAB B/C RATIO(LOINC) B/C RATIO 16 0 - 30 ratio LAB ALT/SGPT(LOINC ) ALT/SGPT 31 16 - 63 U/L LAB ANION GAP(LOINC) ANION GAP 11 10 - 20 mmol/L LAB AGE(LOINC) AGE 70 years LAB eGFR(LOINC) eGFR 20 Low 60 - 999 ML/MINUT E LAB eGFR(AA)(LOINC ) eGFR(AA) 25 Low 60 - 999 ML/MINUT E Result Comment: ACCORDING TO THE NATIONAL KIDNEY DISEASE EDUCATION PROGRAM(NKDE), A NORMAL eGFR IS A VALUE GREATER THAN OR EQUAL TO 60 ML/MIN/1.73 SQ METERS. CHRONIC KIDNEY DISEASE: <60mL/MIN/1.73 SQ METERS KIDNEY FAILURE: <15mL/MIN/1.73 SQ METERS THIS TEST SHOULD ONLY BE USED FOR PATIENTS 18 YEARS OF AGE AND OLDER. Performed By: #### [id number] ## ## [address] [address] TSH Collected: 7:22 AM Status: F Source: [facility] TYPE CODE TESTS RESULT OUT OF RANGE REFERENCE UNITS LAB TSH(LOINC) TSH 4.92 High 0.35 - 3.74 uIU/ml Performed By: #### [id number] ## ## [address] [address] VALPROIC ACID [CCL] Collected: 03/12/20 7:22 AM Status: F Source: [facility] TYPE CODE TESTS RESULT OUT OF RANGE REFERENCE UNITS LAB VPA(LOINC) Valproic Acid 10.0 Low 50.0-100.0 ug/m L Result Comment: Reference ra nges and high/low indicator flags are provided as general guidelines only. The treating physician must determine appropriate target levels/dosing based on the specific clinical situation. [facility] [address] [place] [address] Rakesh Lamas III, M.D. [id number] Performed By: #### [id number] ## ## [address] [address] HEMOGLOBIN A1C (POM) Collected: 03/12/2025 7:22 AM S tatus: F Source: [facility] TYPE CODE TESTS RESULT OUT OF RANGE REFERENCE UNITS LAB HEMOGLOBIN A1C(LOINC) HEMOGLOBIN A1C 6.6 High 0.0 - 6.5 % LAB AVG GLUCOSE(LOINC) AVG GLUCOSE 142.7 High 0.0 - 0.0 mg/dL Result Comment: BLDoHEMOGLO BIN A1C REFERENCE RANGESBLDo Suggested Diagnosis HbA1c(%) HbA1C (mmol/mol Diabetic >/=6.5 >/=48 Prediabetes 5.7 - 6.4 39 - 47 Normal <5.7 <39 Performed By: #### [id number] ## ## [facility],[address] [place], [place] [id number] VALPROATE SERPL-MCNC Collected: 03/12/2025 7:22 AM S tatus: F Source: [facility] Order Comment: Specimen Type : BLOOD SPECIMEN Ordering Facility: [facility] Address: [address] [place], [place] [id number] TYPE CODE TESTS RESULT OUT OF RANGE REFERENCE UNITS LAB 4086-5(LOINC) Valproate SerPl-mCnc 10.0 Low 50.0-100.0 ug/mL Result Comment: Reference ra nges and high/low indicator flags are provided as general guidelines only. The treating physician must determine appropriate target levels/dosing based on the specific clinical situation. Performed By: #### [id number] ## ## [facility] CLIA [id number] [address] [place] [address] [facility] OF [facility] BMP WITH EGFR Collected: 02/23/2025 7:12 AM Status: F Source: [facility] TYPE CODE TESTS RESULT OUT OF RANGE REFERENCE UNITS LAB BMP with eGFR(LOINC) BMP with eGFR Result Comment: BASIC METAB OLIC PANEL LAB SODIUM(LOINC) SODIUM 139 136 - 145 mmol/l LAB POTASSIUM(LOINC ) POTASSIUM 4.3 3.5 - 5.1 mmol/L LAB CHLORIDE(LOINC) CHLORIDE 104 98 - 107 mmol/L LAB CO2(LOINC) CO2 24.9 21.0 - 32.0 mmol/L LAB GLUCOSE(LOINC) GLUCOSE 105 74 - 106 mg/dl LAB BUN(LOINC) BUN 34 High 7 - 18 mg/dl LAB CREATININE(LOIN C) CREATININE 2.17 High 0.55 - 1.02 mg/dl LAB CALCIUM(LOINC) CALCIUM 9.7 8.5 - 10.1 mg/dl LAB ANION GAP(LOINC) ANION GAP 14 10 - 20 mmol/L LAB AGE(LOINC) AGE 69 years LAB eGFR(LOINC) eGFR 22 Low 60 - 999 ML/MINUTE LAB eGFR(AA)(LOINC) eGFR(AA) 27 Low 60 - 999 ML/MIN [place] Result Comment: ACCORDING TO THE NATIONAL KIDNEY DISEASE EDUCATION PROGRAM(NKDE), A NORMAL eGFR IS A VALUE GREATER THAN OR EQUAL TO 60 ML/MIN/1.73 SQ METERS. CHRONIC KIDNEY DISEASE: <60mL/MIN/1.73 SQ METERS KIDNEY FAILURE: <15mL/MIN/1.73 SQ METERS THIS TEST SHOULD ONLY BE USED FOR PATIENTS 18 YEARS OF AGE AND OLDER. Performed By: #### [id number] ## ## [place] [id number] CBC (NO DIFF) Collected: 02/23/2025 7:12 AM Status: F Source: [facility] TYPE CODE TESTS RESULT OUT OF RANGE REFERENCE UNITS LAB CBC (NO DIFF)(LOINC) CBC (NO DIFF) Result Comment: CBC(WITHOUT DIFFERENTIAL) LAB WBC(LOINC) WBC 8.9 4.5 - 10.8 x 10EE3/UL LAB RBC(LOINC) RBC 3.37 Low 4.10 - 5.30 x 10EE6/UL LAB HEMOGLOBIN(LOIN C) HEMOGLOBIN 10.5 Low 12.0 - 16.0 g/dl LAB HEMATOCRIT(LOIN C) HEMATOCRIT 30.4 Low 34.0 - 46.0 % LAB MCV(LOINC) MCV 90 80 - 99 fl LAB MCH(LOINC) MCH 31 27 - 33 pg LAB MCHC(LOINC) MCHC 35 32 - 36 X10 3 LAB RDW/CV(LOINC) RDW/CV 13.1 12.0 - 15.6 % LAB PLATELET(LOINC) PLATELET 395 150 - 450 x10EE 3/UL LAB MPV(LOINC) MPV 7.0 6.6 - 10.5 fl Performed By: #### [id number] ## ## [address] [address] BMP WITH EGFR DAILY Collected: 02/20/2025 5:[address] atus: F Source: [facility] TYPE CODE TESTS RESULT OUT OF RANGE REFERENCE UNITS LAB BMP with eGFR DAILY(LOINC) BMP with eGFR DAILY Result Comment: BASIC METABO LIC PANEL LAB SODIUM(LOINC) SODIUM 133 Low 136 - 145 mmol/l LAB POTASSIUM(LOINC ) POTASSIUM 4.2 3.5 - 5.1 mmol/L LAB CHLORIDE(LOINC) CHLORIDE 100 98 - 107 mmol/L LAB CO2(LOINC) CO2 28.3 21.0 - 32.0 mmol/L LAB GLUCOSE(LOINC) GLUCOSE 102 74 - 106 mg/dl LAB BUN(LOINC) BUN 17 7 - 18 mg/dl LAB CREATININE(LOIN C) CREATININE 1.36 High 0.55 - 1.02 mg/dl LAB CALCIUM(LOINC) CALCIUM 10.0 8.5 - 10.1 mg/dl LAB ANION GAP(LOINC) ANION GAP 9 Low 10 - 20 mmol/L LAB AGE(LOINC) AGE 69 years LAB eGFR(LOINC) eGFR 39 Low 60 - 999 ML/MINUTE LAB eGFR(AA)(LOINC) eGFR(AA) 47 Low 60 - 999 ML/MIN [place] Result Comment: ACCORDING TO THE NATIONAL KIDNEY DISEASE EDUCATION PROGRAM(NKDE), A NORMAL eGFR IS A VALUE GREATER THAN OR EQUAL TO 60 ML/MIN/1.73 SQ METERS. CHRONIC KIDNEY DISEASE: <60mL/MIN/1.73 SQ METERS KIDNEY FAILURE: <15mL/MIN/1.73 SQ METERS THIS TEST SHOULD ONLY BE USED FOR PATIENTS 18 YEARS OF AGE AND OLDER. Performed By: #### [id number] ## ## [facility],[address] [place] [address] CBC DAILY Collected: 5 5:43 AM Status: F Source: [facility] TYPE CODE TESTS RESULT OUT OF RANGE REFERENCE UNITS LAB WBC(INC) WBC 9.9 4.5 - 10.8 x 10EE3/UL LAB RBC(INC) RBC 3.42 Low 4.10 - 5.30 x 10EE6/UL LAB HEMOGLOBIN(ELENI NC) HEMOGLOBIN 10.7 Low 12.0 - 16.0 g/dl LAB HEMATOCRIT(ELENI NC) HEMATOCRIT 30.8 Low 34.0 - 46.0 % LAB MCV(LOINC) MCV 90 80 - 99 fl LAB MCH(LOINC) MCH 31 27 - 33 pg LAB MCHC(LOINC) MCHC 35 32 - 36 X10 3 LAB RDW/CV(LOINC) RDW/CV 13.1 12.0 - 15.6 % LAB PLATELET(LOINC ) PLATELET 332 150 - 450 x10EE3/UL LAB MPV(LOINC) MPV 7.1 6.6 - 10.5 fl Result Comment: AUTOMATED DI FFERENTIAL LAB NEUT %(LOINC) NEUT % 69.9 46.0 - 76.0 % LAB LYMPH %(LOINC) LYMPH % 17.6 Low 20.0 - 45.0 % LAB MONOS %(LOINC) MONOS % 11.7 High 0.0 - 10.0 % LAB EO %(LOINC) EO % 0.6 0.0 - 7.0 % LAB BASO %(LOINC) BASO % 0.2 0.0 - 2.0 % LAB Lymph #(LOINC) Lymph # 1.74 0.80 - 2.80 x10EE 3/UL LAB Neut #(LOINC) Neut # 6.92 1.50 - 7.10 x10EE3 /UL LAB [place] #(LOINC) [place] # 1.16 High 0.20 - 1.00 x10EE3 /UL LAB EO #(LOINC) EO # 0.06 0.00 - 0.50 x10EE3/U L LAB Baso #(LOINC) Baso # 0.02 0.00 - 0.10 x10EE3 /UL LAB MANUAL DIFF(LOINC) MANUAL DIFF N/A LAB MORPHOLOGY(ELENI IL) MORPHOLOGY N/A Performed By: #### [id number] ## ## [address] [address] RAPID STREP Observed: 02/19/2025 12:34 PM Status: F Source: [facility] Rapid Strep NEG:GRP A STREP INTERNAL QC PASS EXTERNAL QC DONE? YES Performed By: #### [id number] ## ## [address] [address] GROUP A STREPTOCOCCUS BY PCR [CCL] Collected: 02/19/2025 12:34 PM Status: F Source: [facility] TYPE CODE TESTS RESULT OUT OF RANGE REFERENCE UNITS LAB PCRGAS(LOINC) Group A Strep PCR Not detected Not detected Result Comment: [facility] [address] [place] [address] Rakesh Lamas III, M.D. [id number] LAB RESULT CRI(LOINC) RESULT CRITICAL? NO Performed By: #### [id number] ## ## [facility],[address] [place], [place] [id number] S PYO DNA THROAT QL KARON+PROBE Collected : 02/19/2025 12:34 PM Status: F Source: [facility] Order Comment: Specimen Type : SWAB Ordering Facility: [facility] Address: [address] [place] [address] TYPE CODE TESTS RESULT OUT OF RANGE REFERENCE UNITS LAB 79443-9(LOINC) S pyo DNA Throat Ql KARON+probe Not detected Not detected Performed By: #### [id number] # ### [facility] CLIA [id number] [address] [place] [address] STATES OF [facility] CBC DAILY Collected: 5:34 AM Status: F Source: [facility] TYPE CODE TESTS RESULT OUT OF RANGE REFERENCE UNITS LAB WBC(LOINC) WBC 9.2 4.5 - 10.8 x 10EE3/UL LAB RBC(LOINC) RBC 3.13 Low 4.10 - 5.30 x 10EE6/UL LAB HEMOGLOBIN(ELENI NC) HEMOGLOBIN 10.0 Low 12.0 - 16.0 g/dl LAB HEMATOCRIT(ELENI NC) HEMATOCRIT 29.0 Low 34.0 - 46.0 % LAB MCV(LOINC) MCV 93 80 - 99 fl LAB MCH(LOINC) MCH 32 27 - 33 pg LAB MCHC(LOINC) MCHC 34 32 - 36 X10 3 LAB RDW/CV(LOINC) RDW/CV 12.9 12.0 - 15.6 % LAB PLATELET(LOINC ) PLATELET 344 150 - 450 x10EE3/UL LAB MPV(LOINC) MPV 7.3 6.6 - 10.5 fl Result Comment: AUTOMATED DI FFERENTIAL LAB NEUT %(LOINC) NEUT % 68.7 46.0 - 76.0 % LAB LYMPH %(LOINC) LYMPH % 20.2 20.0 - 45.0 % LAB MONOS %(LOINC) MONOS % 10.5 High 0.0 - 10.0 % LAB EO %(LOINC) EO % 0.4 0.0 - 7.0 % LAB BASO %(LOINC) BASO % 0.3 0.0 - 2.0 % LAB Lymph #(LOINC) Lymph # 1.85 0.80 - 2.80 x10EE 3/UL LAB Neut #(LOINC) Neut # 6.30 1.50 - 7.10 x10EE3 /UL LAB [place] #(LOINC) [place] # 0.96 0.20 - 1.00 x10EE3 /UL LAB EO #(LOINC) EO # 0.04 0.00 - 0.50 x10EE3/U L LAB Baso #(LOINC) Baso # 0.02 0.00 - 0.10 x10EE3 /UL LAB MANUAL DIFF(LOINC) MANUAL DIFF N/A LAB MORPHOLOGY([facility]) MORPHOLOGY N/A Performed By: #### [id number] ## ## [facility],[address] [place] [address] BMP WITH EGFR DAILY Collected: 02/19/2025 5:[address] atus: F Source: [facility] TYPE CODE TESTS RESULT OUT OF RANGE REFERENCE UNITS LAB BMP with eGFR DAILY(LOINC) BMP with eGFR DAILY Result Comment: BASIC METABO LIC PANEL LAB SODIUM(LOINC) SODIUM 137 136 - 145 mmol/l LAB POTASSIUM(LOINC ) POTASSIUM 4.6 3.5 - 5.1 mmol/L LAB CHLORIDE(LOINC) CHLORIDE 104 98 - 107 mmol/L LAB CO2(LOINC) CO2 26.2 21.0 - 32.0 mmol/L LAB GLUCOSE(LOINC) GLUCOSE 105 74 - 106 mg/dl LAB BUN(LOINC) BUN 20 High 7 - 18 mg/dl LAB CREATININE(LOIN C) CREATININE 1.41 High 0.55 - 1.02 mg/dl LAB CALCIUM(LOINC) CALCIUM 9.4 8.5 - 10.1 mg/dl Result Comment: VERIFIED BY REPEAT ANALYSIS LAB ANION GAP(LOINC) ANION GAP 11 10 - 20 mmol/L LAB AGE(LOINC) AGE 69 years LAB eGFR(LOINC) eGFR 37 Low 60 - 999 ML/MINUTE LAB eGFR(AA)(LOINC) eGFR(AA) 45 Low 60 - 999 ML/MIN [place] Result Comment: ACCORDING TO THE NATIONAL KIDNEY DISEASE EDUCATION PROGRAM(NKDE), A NORMAL eGFR IS A VALUE GREATER THAN OR EQUAL TO 60 ML/MIN/1.73 SQ METERS. CHRONIC KIDNEY DISEASE: <60mL/MIN/1.73 SQ METERS KIDNEY FAILURE: <15mL/MIN/1.73 SQ METERS THIS TEST SHOULD ONLY BE USED FOR PATIENTS 18 YEARS OF AGE AND OLDER. Performed By: #### [id number] ## ## [facility],[address] [place] [id number] NT-PROBNP Collected: 5:34 AM Status: F Source: [facility] TYPE CODE TESTS RESULT OUT OF RANGE REFERENCE UNITS LAB NT PRO-BNP(LOINC) NT PRO-BNP 1872 High 0 - 125 pg/ mL Performed By: #### [id number] ## ## [address] [address] CHEST 1 VIEW Observed: 02/18/2025 11:53 AM Status: F Source: [place] [id number] Patient: PRAVEEN PARKINSON Phone#: : 1955 Age: 69 Gender: F Pt. Type: Out Account: [id number] Location: [facility] Ordering: DR. BRITTANY POLK Exam Date: 02/18/2025/11:28 Family Phys: PHILIP UREÑA Charge Code: [id number] Physician: Pike Order #: [id number] Dose#: PROCEDURE: X-RAY CHEST 1 VIEW COMPARISON: [facility], XR, CHEST 1 VIEW, 02/10/2019, 0:06. INDICATIONS: Shortness of breath. FINDINGS: LUNGS: Bilateral increased interstitial markings. Predominantly in the mid lung zones. VASCULATURE: Normal. Unremarkable pulmonary vasculature. CARDIAC: Cardiomegaly MEDIASTINUM: Normal. No visible mass or adenopathy. PLEURA: Normal. No effusion or pleural thickening. BONES: Median sternotomy wires are present OTHER: Monitoring leads project across the thorax. Surgical clips in the epigastric region CONCLUSION: 1. Bilateral increased interstitial markings, differential includes interstitial markings or infiltrates. 2. Cardiomegaly Dictated by: Meghan Lal MD on 02/18/2025 at 12:20 Approved by: Meghan Lal MD on 02/18/2025 at 12:27 BMP WITH EGFR DAILY Collected: 02/18/2025 9:[address] atus: F Source: [facility] TYPE CODE TESTS RESULT OUT OF RANGE REFERENCE UNITS LAB BMP with eGFR DAILY(LOINC) BMP with eGFR DAILY Result Comment: BASIC METABO LIC PANEL LAB SODIUM(LOINC) SODIUM 136 136 - 145 mmol/l LAB POTASSIUM(LOINC ) POTASSIUM 4.7 3.5 - 5.1 mmol/L LAB CHLORIDE(LOINC) CHLORIDE 104 98 - 107 mmol/L LAB CO2(LOINC) CO2 22.6 21.0 - 32.0 mmol/L LAB GLUCOSE(LOINC) GLUCOSE 149 High 74 - 106 mg/dl LAB BUN(LOINC) BUN 31 High 7 - 18 mg/dl LAB CREATININE(LOIN C) CREATININE 1.84 High 0.55 - 1.02 mg/dl LAB CALCIUM(LOINC) CALCIUM 8.7 8.5 - 10.1 mg/dl LAB ANION GAP(LOINC) ANION GAP 14 10 - 20 mmol/L LAB AGE(LOINC) AGE 69 years LAB eGFR(LOINC) eGFR 27 Low 60 - 999 ML/MINUTE LAB eGFR(AA)(LOINC) eGFR(AA) 33 Low 60 - 999 ML/MIN [place] Result Comment: ACCORDING TO THE NATIONAL KIDNEY DISEASE EDUCATION PROGRAM(NKDE), A NORMAL eGFR IS A VALUE GREATER THAN OR EQUAL TO 60 ML/MIN/1.73 SQ METERS. CHRONIC KIDNEY DISEASE: <60mL/MIN/1.73 SQ METERS KIDNEY FAILURE: <15mL/MIN/1.73 SQ METERS THIS TEST SHOULD ONLY BE USED FOR PATIENTS 18 YEARS OF AGE AND OLDER. Performed By: #### [id number] ## ## [facility],[address] [place] [address] CBC DAILY Collected: 9:29 AM Status: F Source: [facility] TYPE CODE TESTS RESULT OUT OF RANGE REFERENCE UNITS LAB WBC(LOINC) WBC 8.6 4.5 - 10.8 x 10EE3/UL LAB RBC(LOINC) RBC 3.10 Low 4.10 - 5.30 x 10EE6/UL LAB HEMOGLOBIN(ELENI NC) HEMOGLOBIN 9.9 Low 12.0 - 16.0 g/dl LAB HEMATOCRIT(ELENI NC) HEMATOCRIT 28.7 Low 34.0 - 46.0 % LAB MCV(LOINC) MCV 93 80 - 99 fl LAB MCH(LOINC) MCH 32 27 - 33 pg LAB MCHC(LOINC) MCHC 34 32 - 36 X10 3 LAB RDW/CV(LOINC) RDW/CV 13.0 12.0 - 15.6 % LAB PLATELET(LOINC ) PLATELET 316 150 - 450 x10EE3/UL LAB MPV(LOINC) MPV 7.3 6.6 - 10.5 fl Result Comment: AUTOMATED DI FFERENTIAL LAB NEUT %(LOINC) NEUT % 68.4 46.0 - 76.0 % LAB LYMPH %(LOINC) LYMPH % 20.4 20.0 - 45.0 % LAB MONOS %(LOINC) MONOS % 10.7 High 0.0 - 10.0 % LAB EO %(LOINC) EO % 0.4 0.0 - 7.0 % LAB BASO %(LOINC) BASO % 0.2 0.0 - 2.0 % LAB Lymph #(LOINC) Lymph # 1.74 0.80 - 2.80 x10EE 3/UL LAB Neut #(LOINC) Neut # 5.86 1.50 - 7.10 x10EE3 /UL LAB [place] #(LOINC) [place] # 0.92 0.20 - 1.00 x10EE3 /UL LAB EO #(LOINC) EO # 0.03 0.00 - 0.50 x10EE3/U L LAB Baso #(LOINC) Baso # 0.02 0.00 - 0.10 x10EE3 /UL LAB MANUAL DIFF(LOINC) MANUAL DIFF N/A LAB MORPHOLOGY([facility]) MORPHOLOGY N/A Performed By: #### [id number] ## ## [facility],[address] [place] [address] DISCHARGE SUMMARY Observed: 02/17/2025 12:02 PM Status: F Source: [facility] DISCHARGE SUMMARY NAME ACCOUNT SEX AGE ADMIT DISCHARGE PT MED. RECORD# NUMBER DATE DATE TYPE IGGY [id number] F 69 02/17/25 1 PRAVEEN Christopher [id number] ROOM: [id number] DATE OF : 1955 ATTENDING PHYSICIAN: Darrick Putnam FINAL DIAGNOSES: 1. Acute kidney injury superimposed on chronic kidney disease stage III. 2. Hypoxia, resolved. 3. T10 fracture. 4. Status post fall recently. 5. Diabetes mellitus type 2 with hemoglobin A1c of 6.1%. 6. History of congestive heart failure. 7. Dementia. 8. Anemia. 9. Diastolic dysfunction. 10. Moderate aortic stenosis with valvular heart disease on echocardiogram. 11. Coronary artery disease with chronic angina. 12. Allergic rhinitis. PHYSICAL EXAMINATION: Today, on the date of discharge, vital signs were stable. Oxygen saturation was 93% on room air. HEENT: Normocephalic and atraumatic. PERRLA. Conjunctivae not injected. Mouth and throat: She had no erythema. She does have some postnasal drip. NECK: Neck is supple. No JVD. LUNGS: Normal respiratory effort, equal lung expansion, and diminished. No rhonchi or wheezing. HEART: Regular rate and rhythm. HOSPITAL COURSE: For a full history and physical, please see chart. Brief summary, see below. This is a 69-year-old female with multiple medical problems including coronary artery disease status post CABG, hypertension, dementia, diabetes mellitus type 2, and chronic kidney disease. She fell at home about 2 weeks prior to coming to the emergency room. She had ongoing mid lower back pain, which was worsening. She was found to have a creatinine of 2. Her baseline is about 2.0. CT was completed with a T10 fracture. She was placed on IV fluids, pain control, physical therapy and discussed [facility] facility. Her stated that since the fall he has had difficulty taking care of her at home. Social Service was placed on consultation, and arrangements were made. Initially, she had IV fluids. She started to have some mild hypoxia. The fluids were stopped, and she was placed on IV diuretics and improved. She has chronic allergic rhinitis. She is on multiple medications and she complained of some congestion and sore throat. Strep throat was ruled out. She was placed on Mucinex and saline nose spray, as well as lozenges. Today, on the date of discharge, kidney function is back to her baseline. Pain is Page 1 of 2 PRAVEEN PARKINSON Discharge Summary PRAVEEN Christopher IGGY : 1955 controlled. She does now have a lidocaine patch. She had morphine during the hospital stay, and she did have increased confusion. She is unable to take hydrocodone or oxycodone per her with severe nausea and vomiting, so this was avoided. She has had multiple falls. Echocardiogram was completed when she became short of breath. It was reviewed today. It does show some valvular heart disease, moderate aortic stenosis and diastolic dysfunction. She does have cardiology and she can follow-up as an outpatient. DISPOSITION: Discharge destination: [facility]. MEDICATIONS ON DISCHARGE: See medication reconciliation on the chart. DISCHARGE INSTRUCTIONS/PLAN: Regular diet. Increase activity as tolerated. Physical therapy and occupational therapy evaluation and treatment. Recheck CBC and BMP in three days. Follow-up with cardiology regarding valvular heart disease and known coronary artery disease. She will be discharged to the ch[facility] facility. Her is hoping that after some rehabilitation he will be able to take her home. Time spent on discharge was 40 minutes. Condition on discharge was stable. Dictated By: Darrick Putnam PA-C 02/20/25 12:37 JOB #: [id number] Transcribed By: am 02/20/25 13:07 Electronically signed by: E-SIGN: DARRICK PUTNAM PA-C 02/21/25 18:23 Page 2 of 2 PRAVEEN PARKINSON Discharge Summary CBC + DIFF DAILY Collected: 5 5:16 AM Status: F Source: [facility] TYPE CODE TESTS RESULT OUT OF RANGE REFERENCE UNITS LAB CBC + DIFF DAILY(LOINC) CBC + DIFF DAILY Result Comment: CBC-COMPLETE BLOOD COUNT LAB WBC(LOINC) WBC 9.0 4.5 - 10.8 x 10EE3/UL LAB RBC(LOINC) RBC 3.24 Low 4.10 - 5.30 x 10EE6/UL LAB HEMOGLOBIN(ELENI NC) HEMOGLOBIN 10.4 Low 12.0 - 16.0 g/dl LAB HEMATOCRIT(ELENI NC) HEMATOCRIT 31.0 Low 34.0 - 46.0 % LAB MCV(LOINC) MCV 96 80 - 99 fl LAB MCH(LOINC) MCH 32 27 - 33 pg LAB MCHC(LOINC) MCHC 34 32 - 36 X10 3 LAB RDW/CV(LOINC) RDW/CV 13.2 12.0 - 15.6 % LAB PLATELET(LOINC ) PLATELET 307 150 - 450 x10EE3/U L LAB MPV(LOINC) MPV 7.4 6.6 - 10.5 fl Result Comment: AUTOMATED DI FFERENTIAL LAB NEUT %(LOINC) NEUT % 54.3 46.0 - 76.0 % LAB LYMPH %(LOINC) LYMPH % 30.3 20.0 - 45.0 % LAB MONOS %(LOINC) MONOS % 14.9 High 0.0 - 10.0 % LAB EO %(LOINC) EO % 0.3 0.0 - 7.0 % LAB BASO %(LOINC) BASO % 0.2 0.0 - 2.0 % LAB Lymph #(LOINC) Lymph # 2.71 0.80 - 2.80 x10EE 3/U L LAB Neut #(LOINC) Neut # 4.87 1.50 - 7.10 x10EE3 /U L LAB [place] #(LOINC) [place] # 1.34 High 0.20 - 1.00 x10EE3 /U L LAB EO #(LOINC) EO # 0.03 0.00 - 0.50 x10EE3/U L LAB Baso #(LOINC) Baso # 0.02 0.00 - 0.10 x10EE3 /U L LAB MANUAL DIFF(LOINC) MANUAL DIFF N/A LAB MORPHOLOGY([facility]) MORPHOLOGY N/A Performed By: #### [id number] ## ## [facility],[address] [place] [address] CMP WITH EGFR - DAILY Collected: 2024 5:16 AM Status: F Source: [facility] TYPE CODE TESTS RESULT OUT OF RANGE REFERENCE UNITS LAB CMP with eGFR - DAILY(LOINC) CMP with eGFR - DAILY Result Comment: COMPREHENSIV E METABOLIC PANEL LAB SODIUM(LOINC) SODIUM 138 136 - 145 mmol/l LAB POTASSIUM(LOIN C) POTASSIUM 4.8 3.5 - 5.1 mmol/L LAB CHLORIDE(LOINC ) CHLORIDE 105 98 - 107 mmol/L LAB CO2(LOINC) CO2 23.6 21.0 - 32.0 mmol/L LAB GLUCOSE(LOINC) GLUCOSE 91 74 - 106 mg/dl LAB BUN(LOINC) BUN 38 High 7 - 18 mg/dl LAB CREATININE(ELENI NC) CREATININE 2.31 High 0.55 - 1.02 mg/dl LAB AST/SGOT(LOINC ) AST/SGOT 15 13 - 39 U/L LAB ALK PHOS(LOINC) ALK PHOS 35 Low 46 - 116 U/L LAB CALCIUM(LOINC) CALCIUM 9.2 8.5 - 10.1 mg/dl LAB TOTAL PROTEIN(LOINC) TOTAL PROTEIN 6.7 6.4 - 8.2 g/dl LAB ALBUMIN(LOINC) ALBUMIN 3.3 Low 3.4 - 5.0 g/dL LAB GLOBULIN(LOINC ) GLOBULIN 3.4 1.5 - 3.8 G/DL LAB A/G RATIO(LOINC) A/G RATIO 1.0 0.9 - 1.6 LAB TOTAL BILI(LOINC) TOTAL BILI 0.4 0.2 - 1.0 mg/dl LAB B/C RATIO(LOINC) B/C RATIO 16 0 - 30 ratio LAB ALT/SGPT(LOINC ) ALT/SGPT 13 Low 16 - 63 U/L LAB ANION GAP(LOINC) ANION GAP 14 10 - 20 mmol/L LAB AGE(LOINC) AGE 69 years LAB eGFR(LOINC) eGFR 21 Low 60 - 999 ML/MINUT E LAB eGFR(AA)(LOINC ) eGFR(AA) 25 Low 60 - 999 ML/MINUT E Result Comment: ACCORDING TO THE NATIONAL KIDNEY DISEASE EDUCATION PROGRAM(NKDE), A NORMAL eGFR IS A VALUE GREATER THAN OR EQUAL TO 60 ML/MIN/1.73 SQ METERS. CHRONIC KIDNEY DISEASE: <60mL/MIN/1.73 SQ METERS KIDNEY FAILURE: <15mL/MIN/1.73 SQ METERS Performed By: #### [id number] ## ## [facility],[address] [place] [address] CMP WITH EGFR Collected: 5 5:03 PM Status: F Source: [facility] TYPE CODE TESTS RESULT OUT OF RANGE REFERENCE UNITS LAB CMP with eGFR(LOINC) CMP with eGFR Result Comment: COMPREHENSIV E METABOLIC PANEL LAB SODIUM(LOINC) SODIUM 140 136 - 145 mmol/l LAB POTASSIUM(LOIN C) POTASSIUM 5.0 3.5 - 5.1 mmol/L LAB CHLORIDE(LOINC ) CHLORIDE 104 98 - 107 mmol/L LAB CO2(LOINC) CO2 28.3 21.0 - 32.0 mmol/L LAB GLUCOSE(LOINC) GLUCOSE 89 74 - 106 mg/dl LAB BUN(LOINC) BUN 36 High 7 - 18 mg/dl LAB CREATININE(ELENI NC) CREATININE 2.09 High 0.55 - 1.02 mg/dl LAB AST/SGOT(LOINC ) AST/SGOT 19 13 - 39 U/L LAB ALK PHOS(LOINC) ALK PHOS 39 Low 46 - 116 U/L LAB CALCIUM(LOINC) CALCIUM 9.9 8.5 - 10.1 mg/dl LAB TOTAL PROTEIN(INC) TOTAL PROTEIN 7.3 6.4 - 8.2 g/dl LAB ALBUMIN(INC) ALBUMIN 3.6 3.4 - 5.0 g/dL LAB GLOBULIN(INC ) GLOBULIN 3.7 1.5 - 3.8 G/DL LAB A/G RATIO([facility]) A/G RATIO 1.0 0.9 - 1.6 LAB TOTAL BILI([facility]) TOTAL BILI 0.5 0.2 - 1.0 mg/dl LAB B/C RATIO([facility]) B/C RATIO 17 0 - 30 ratio LAB ALT/SGPT([facility] ) ALT/SGPT 21 16 - 63 U/L LAB ANION GAP(INC) ANION GAP 13 10 - 20 mmol/L LAB AGE(INC) AGE 69 years LAB eGFR(LOINC) eGFR 23 Low 60 - 999 ML/MINUT E LAB eGFR(AA)([facility] ) eGFR(AA) 28 Low 60 - 999 ML/MINUT E Result Comment: ACCORDING TO THE NATIONAL KIDNEY DISEASE EDUCATION PROGRAM(NKDE), A NORMAL eGFR IS A VALUE GREATER THAN OR EQUAL TO 60 ML/MIN/1.73 SQ METERS. CHRONIC KIDNEY DISEASE: <60mL/MIN/1.73 SQ METERS KIDNEY FAILURE: <15mL/MIN/1.73 SQ METERS THIS TEST SHOULD ONLY BE USED FOR PATIENTS 18 YEARS OF AGE AND OLDER. Performed By: #### [id number] ## ## [facility],[address] [place] [id number] HEMOGLOBIN A1C (POM) Collected: 02/16/2025 5:03 PM S tatus: F Source: [facility] TYPE CODE TESTS RESULT OUT OF RANGE REFERENCE UNITS LAB HEMOGLOBIN A1C(LOINC) HEMOGLOBIN A1C 6.1 0.0 - 6.5 % LAB AVG GLUCOSE(LOINC) AVG GLUCOSE 128.4 High 0.0 - 0.0 mg/dL Result Comment: BLDoHEMOGLOB IN A1C REFERENCE RANGESBLDo Suggested Diagnosis HbA1c(%) HbA1C (mmol/mol Diabetic >/=6.5 >/=48 Prediabetes 5.7 - 6.4 39 - 47 Normal <5.7 <39 Performed By: #### [id number] ## ## [place] [id number] URINALYSIS Collected: 5 5:03 PM Status: F Source: [facility] TYPE CODE TESTS RESULT OUT OF RANGE REFERENCE UNITS LAB URINALYSIS([facility]) URINALYSIS Result Comment: URINALYSIS LAB Specimen Type(LOINC) Specimen Type R LAB Color(LOINC) Color yellow NORMAL: YELLOW LAB Clarity(LOINC) Clarity clear ALEX L: CLEAR LAB ph(LOINC) ph 6 NORMAL: 5.0-8.0 LAB Protein(LOINC) Protein 15 Abnormal ALEX L: NEGATIVE LAB Glucose(LOINC) Glucose NORM ALEX L: NORMAL LAB Ketone(LOINC) Ketone NEG NORMAL : NEGATIVE LAB Bilirubin(LOIN C) Bilirubin NEG NORMAL: NEGATIVE LAB Blood(LOINC) Blood NEG NORMAL: NEGATIVE LAB Urobilinog(ELENI NC) Urobilinog NORM NORMAL: NORMAL LAB Sp [place](LOINC) Sp [place] 1.010 NORMAL: 1.010-1.030 LAB Nitrite(LOINC) Nitrite NEG ALEX L: NEGATIVE LAB Leukocytes(ELENI NC) Leukocytes 25 Abnormal NORMAL: NEGATIVE LAB Microscopic(LO INC) Microscopic SEE BELOW Result Comment: MICROSCOPIC LAB Wbc(LOINC) Wbc 1-5 0-5/hpf LAB Rbc(LOINC) Rbc 0-5 0-3/hpf LAB Casts(LOINC) Casts NONE LAB Crystals(LOINC ) Crystals NONE LAB Amorphous(LOIN C) Amorphous NONE LAB Bacteria(LOINC ) Bacteria 1+ LAB Epi Cells(LOINC) Epi Cells OCC LAB Mucous(LOINC) Mucous NONE LAB Yeast(LOINC) Yeast NONE Performed By: #### [id number] ## ## [place] [id number] CBC + DIFF Collected: 5:03 PM Status: F Source: [facility] TYPE CODE TESTS RESULT OUT OF RANGE REFERENCE UNITS LAB CBC + DIFF(LOINC) CBC + DIFF Result Comment: CBC-COMPLETE BLOOD COUNT LAB WBC(LOINC) WBC 9.0 4.5 - 10.8 x 10EE3/UL LAB RBC(LOINC) RBC 3.54 Low 4.10 - 5.30 x 10EE6/UL LAB HEMOGLOBIN(ELENI NC) HEMOGLOBIN 11.1 Low 12.0 - 16.0 g/dl LAB HEMATOCRIT(ELENI NC) HEMATOCRIT 31.9 Low 34.0 - 46.0 % LAB MCV(LOINC) MCV 90 80 - 99 fl LAB MCH(LOINC) MCH 31 27 - 33 pg LAB MCHC(LOINC) MCHC 35 32 - 36 X10 3 LAB RDW/CV(LOINC) RDW/CV 12.7 12.0 - 15.6 % LAB PLATELET(LOINC ) PLATELET 319 150 - 450 x10EE3/UL LAB MPV(LOINC) MPV 7.1 6.6 - 10.5 fl Result Comment: AUTOMATED DI FFERENTIAL LAB NEUT %(LOINC) NEUT % 70.0 46.0 - 76.0 % LAB LYMPH %(LOINC) LYMPH % 18.1 Low 20.0 - 45.0 % LAB MONOS %(LOINC) MONOS % 11.5 High 0.0 - 10.0 % LAB EO %(LOINC) EO % 0.3 0.0 - 7.0 % LAB BASO %(LOINC) BASO % 0.2 0.0 - 2.0 % LAB Lymph #(LOINC) Lymph # 1.63 0.80 - 2.80 x10EE 3/UL LAB Neut #(LOINC) Neut # 6.30 1.50 - 7.10 x10EE3 /UL LAB [place] #(LOINC) [place] # 1.04 High 0.20 - 1.00 x10EE3 /UL LAB EO #(LOINC) EO # 0.02 0.00 - 0.50 x10EE3/U L LAB Baso #(LOINC) Baso # 0.02 0.00 - 0.10 x10EE3 /UL LAB MANUAL DIFF(LOINC) MANUAL DIFF SEE BELOW LAB SEGS(LOINC) SEGS 70 46 - 76 % LAB LYMPH(LOINC) LYMPH 18 Low 20 - 45 % LAB MONOS(LOINC) MONOS 11 High 0 - 10 % LAB BASO(LOINC) BASO 1.0 0.0 - 2.0 % LAB CELL COUNT(LOINC) CELL COUNT 100 LAB MORPHOLOGY([facility]) MORPHOLOGY REVIEWED Performed By: #### [id number] ## ## [facility],[address] [place] [address] CT LUMBAR W/O CONTRAST Observed: 025 3:30 PM Status: F Source: [place] [id number] Patient: PRAVEEN PARKINSON Phone#: : 1955 Age: 69 Gender: F Pt. Type: ER Account: [id number] Location: [facility] Ordering: SCOTTIE ROSARIO Exam Date: 02/16/2025/15:01 Family Phys: PHILIP UREÑA Charge Code: [id number] Physician: Pike Order #: [id number] Dose#: 49.60 mGy PROCEDURE: CT LUMBAR SPINE WITHOUT CONTRAST COMPARISON: None. INDICATIONS: Trauma. TECHNIQUE: After obtaining the patient's consent, multi-planar CT images were created without intravenous contrast material. All CT scans at this facility use dose modulation, iterative reconstruction, and/or weight based dosing when appropriate to reduce radiation dose to as low as reasonably achievable. IV CONTRAST: No IV contrast used,0.0ml TOTAL DOSE: 49.60 CTDIvol(mGy) FINDINGS: PARASPINAL AREA: Normal with no visible mass. BONES: There is compression fracture at T10. LUMBAR DISC LEVELS: L1-L2: No significant disc/facet abnormality, spinal stenosis, or foraminal stenosis. L2-L3: Mild annular disc bulging is present. There is mild bilateral foraminal. L3-L4: Mild annular disc bulging is present. There is mild bilateral foraminal narrowing. L4-L5: Mild annular disc bulging is present. There is moderate bilateral foraminal narrowing. L5-S1: No significant disc/facet abnormality, spinal stenosis, or foraminal stenosis. CONCLUSION: 1. Compression fracture at T10. 2. Degenerative changes of the spine are present. There is disc bulging at L4-5 with moderate foraminal narrowing. Dictated by: Elif Brandt MD on 02/17/2025 at 11:13 Approved by: Elif Brandt MD on 02/17/2025 at 11:15 CT CERVICAL W/O CONTRAST Observed: 02/16 3:30 PM Status: F Source: [place] [id number] Patient: PRAVEEN PARKINSON Phone#: : 1955 Age: 69 Gender: F Pt. Type: ER Account: [id number] Location: [facility] Ordering: SCOTTIE ROSARIO Exam Date: 02/16/2025/14:56 Family Phys: PHILIP UREÑA Charge Code: [id number] Physician: Pike Order #: [id number] Dose#: 10.90 mGy PROCEDURE: CT CERVICAL WITHOUT CONTRAST COMPARISON: None. INDICATIONS: Trauma. TECHNIQUE: Multi-planar CT images were created without intravenous contrast. All CT scans at this facility use dose modulation, iterative reconstruction, and/or weight-based dosing when appropriate to reduce radiation dose to as low as reasonably achievable. IV CONTRAST: No IV contrast used,0.0ml TOTAL DOSE: 10.90 CTDIvol(mGy) FINDINGS: CRANIOCERVICAL AREA: Normal foramen magnum with no Chiari malformation. PARASPINAL AREA: Normal with no visible mass. BONES: No fracture, pars defect, or osseous lesion. CERVICAL DISC LEVELS: C2-C3: Bony hypertrophy is present with narrowing of the foramina bilaterally. C3-C4: No significant disc/facet abnormality, spinal stenosis, or foraminal stenosis. C4-C5: Disc space narrowing is present. Endplate osteophytes are present with narrowing the foramina bilaterally. C5-C6: Disc space narrowing is present. End plate osteophytes are present with narrowing of the foramina bilaterally. C6-C7: Disc space narrowing is present. There is mild bilateral foraminal narrowing related to endplate osteophytes. C7-T1: No significant disc/facet abnormality, spinal stenosis, or foraminal stenosis. CONCLUSION: 1. There is no evidence of acute fracture or subluxation. Dictated by: Elif Brandt MD on 02/17/2025 at 11:07 Continued Report - Page 2 of 2 Patient: PRAVEEN PARKINSON Phone#: : [phone] Age: 69 Gender: F Pt. Type: ER Account: [id number] Location: 052 Ordering: SCOTTIE ROSARIO Exam Date: 02/16/2025/14:56 Family Phys: PHILIP UREÑA Charge Code: [id number] Physician: Pike Order #: [id number] Dose#: 10.90 mGy Approved by: Elif Brandt MD on 02/17/2025 at 11:09 CT BRAIN W/O CONTRAST Observed: 02/17/20 3:29 PM Status: F Source: [place] [id number] Patient: PRAVEEN PARKINSON Phone#: : [phone] Age: 69 Gender: F Pt. Type: ER Account: [id number] Location: 052 Ordering: SCOTTIE ROSARIO Exam Date: 02/16/2025/14:56 Family Phys: PHILIP UREÑA Charge Code: [id number] Physician: Pike Order #: [id number] Dose#: 57.50 mGy PROCEDURE: CT BRAIN WITHOUT CONTRAST COMPARISON: [facility], CT, BRAIN W/O CON, 02/10/2019, 0:02. INDICATIONS: Trauma. TECHNIQUE: CT images were obtained without contrast material. All CT scans at this facility use dose modulation, iterative reconstruction, and/or weight based dosing when appropriate to reduce radiation dose to as low as reasonably achievable. IV CONTRAST: No IV contrast used,0.0ml TOTAL DOSE: 57.50 CTDIvol(mGy) FINDINGS: CEREBRUM: Age-appropriate atrophy is present, without visible acute hemorrhage or lesion. Small vessel disease changes are present. CEREBELLUM: No edema, hemorrhage, mass, acute infarction, or inappropriate atrophy. BRAINSTEM: No edema, hemorrhage, mass, acute infarction, or inappropriate atrophy. CSF SPACES: Ventricles, cisterns, and sulci are appropriate for age. No hydrocephalus, subarachnoid hemorrhage, or mass. SKULL: No mass or other significant visible lesion. SINUSES: Limited views demonstrate no significant mucosal thickening or fluid. ORBITS: Limited views are unremarkable. OTHER: Dense paraclinoid carotid calcification is present. CONCLUSION: 1. There is no evidence of acute intracranial. Dictated by: Elif Brandt MD on 02/17/2025 at 11:03 Approved by: Elif Brandt MD on 02/17/2025 at 11:07 CT DORSAL W/O CONTRAST Observed: 025 3:29 PM Status: F Source: [place] [id number] Patient: PRAVEEN PARKINSON Phone#: : [phone] Age: 69 Gender: F Pt. Type: ER Account: [id number] Location: [facility] Ordering: SCOTTIE ROSARIO Exam Date: 02/16/2025/15:01 Family Phys: PHILIP UREÑA Charge Code: 718561 Physician: Pike Order #: [id number] Dose#: 24.20 mGy PROCEDURE: CT DORSAL SPINE WITHOUT CONTRAST COMPARISON: None. INDICATIONS: Trauma. TECHNIQUE: Multi-planar CT images were created without intravenous contrast. All CT scans at this facility use dose modulation, iterative reconstruction, and/or weight based dosing when appropriate to reduce radiation dose to as low as reasonably achievable. IV CONTRAST: No IV contrast used,0.0ml TOTAL DOSE: 24.20 CTDIvol(mGy) FINDINGS: PARASPINAL AREA: Normal with no visible mass. DISCS: No significant disc/facet abnormality, spinal stenosis, or foraminal stenosis. BONES: Compression fracture at T10 is present. There is no evidence of retropulsion of bone fragments. OTHER: Vascular calcifications are present. CONCLUSION: 1. Mild compression fracture at T10. Dictated by: Elif Brandt MD on 02/17/2025 at 11:10 Approved by: Elif Brandt MD on 02/17/2025 at 11:12 ED MED ADMINISTRATION DETAIL Observed: 0 02/16/2025 2:15 PM Status: F Source: [facility] [place] Medication Administration Record [address] [address] [id number] 02/16/2025 Patient: PRAVEEN PARKINSON Sex: Female : 1955 Age: 69y MEASUREMENTS: Wt: 88.5 kg, Ht/Wero: 62.0 in, BMI: 35.67 ALLERGIES: amoxicillin Medication Ordered Medication Administration Date/Time Ondansetron 14:39 07 Ondansetron (Zofran) ODT PO 4 mg given. Confirmed Given (Zofran) ODT PO 4 5 rights. - 14:39 Emily OsunaNHarmeet 14:39 02/16/2025 mg (NOW x1) Erlin Friend R.N. Not Scanned MORPHine IM 4 mg 14:40 07 MORPHine IM 4 mg given. Confirmed 5 rights. - Given (NOW x1, HIGH 14:40 Erlin Friend RHarmeetN. 14:40 02/16/2025 ALERT Erlin Friend R.N. MEDICATION) Not Scanned 1 of 1 ED VITALS FLOW SHEET Observed: 2:15 PM Status: F Source: [facility] Vitals Vital Sign Flow Sheet [address] [address] [id number] 02/16/2025 Patient: PRAVEEN PARKINSON Sex: Female : 1955 Age: 69y Measurements Wt: 88.5 kg, Ht/Wero: 62.0 in, BMI: 35.67 Measured Time BP MAP HR RR O2Sat ETCO2 Temp Pain GCS RTS 18:50 02/16/2025 52 87% 18:50 02/16/2025 117/65 79 51 18:45 02/16/2025 52 84% 18:40 02/16/2025 51 86% 18:36 02/16/2025 134/48 76 51 18:35 02/16/2025 56 78% 18:30 02/16/2025 51 94% 18:25 02/16/2025 54 84% 18:20 02/16/2025 59 83% 18:20 02/16/2025 111/94 98 98 18:15 02/16/2025 79% 18:10 02/16/2025 58 87% 18:05 02/16/2025 58 88% 18:05 02/16/2025 132/69 77 58 18:00 02/16/2025 58 91% 1 of 2 Vitals Measured Time BP MAP HR RR O2Sat ETCO2 Temp Pain GCS RTS 17:55 02/16/2025 58 89% 17:51 02/16/2025 133/57 82 56 17:50 02/16/2025 56 89% 17:45 02/16/2025 52 84% 17:43 02/16/2025 105/79 87 67 14:36 02/16/2025 87/68 74 50 18 97% 97.9 F 9 2 of 2 ED NURSES CLINICAL NOTE Observed: 2024 2:15 PM Status: F Source: [facility] Nurse Narrative Nurse Clinical Narrative [address] [place] [address] [id number] 02/16/2025 14:15:00 Patient: PRAVEEN PARKINSON Sex: Female : 1955 Age: 69y Disposition: Admit to [facility] Disposition Decision Time: 18:49 02/16/2025 Departure Time: 18:53 02/16/2025 TRIAGE Arrived by private vehicle. Triage time: 14:20 02/16/2025. Acuity: LEVEL 4. Chief Complaint: BACK PAIN. No numbness. SEPSIS SCREEN: NEGATIVE. SIRS criteria negative. No possible sources of infection. -- 14:22 02/16/25 EDT Erlin Friend R.N. 14:36 02/16/25. BP: 87/68 MAP: 74. HR: 50. RR: 18. O2 saturation: 97% Temperature: 97.9 F. Pain level now 9/10. -- 14:36 02/16/25 EDT Erlin Friend R.N. Measurements: 14:02/16/25 Wt: 88.5 kg, Ht/Wero: 62.0 in, BMI: 35.67 -- 14:02/16/25 TYRONE Friend R.N. Medications: albuterol sulfate HFA 90 mcg/actuation aerosol inhaler -- 14:02/16/25 [facility] Erlin Friend R.N. albuterol sulfate 2.5 mg/3 mL (0.083 %) solution for nebulization -- 14:02/16/25 [facility] Erlin Friend R.N. fenofibrate 160 mg tablet -- 14:02/16/25 [facility] Erlin Friend R.N. Januvia 50 mg tablet -- 14:02/16/25 [facility] Erlin Friend R.N. 1 of 5 Nurse Narrative memantine 10 mg tablet -- 14:02/16/25 [facility] Erlin Friend R.N. QNASL 80 mcg/actuation nasal aerosol spray -- 14:02/16/25 [facility] Erlin Friend R.N. ranolazine ER 1,000 mg tablet,extended release,12 hr -- 14:02/16/25 [facility] Erlin Friend R.N. atorvastatin 80 mg tablet -- 14:02/16/25 [facility] Erlin Friend R.N. clopidogrel 75 mg tablet -- 14:02/16/25 [facility] Erlin Friend R.N. famotidine 20 mg tablet -- 14:02/16/25 [facility] Erlin Friend R.N. gabapentin 100 mg capsule -- 14:02/16/25 [facility] Erlin Friend R.N. montelukast 10 mg tablet -- 14:02/16/25 [facility] Erlin Friend R.N. furosemide 40 mg tablet -- 14:02/16/25 [facility] Erlin Friend R.N. isosorbide mononitrate ER 30 mg tablet,extended release 24 hr -- 14:02/16/25 [facility] Erlin Friend R.N. oxybutynin chloride 5 mg tablet -- 14:33 02/16/25 [facility] Erlin Friend R.N. amlodipine 5 mg tablet -- 14:02/16/25 [facility] Erlin Friend R.N. amitriptyline 10 mg tablet -- 14:33 02/16/25 [facility] Erlin Friend R.N. divalproex 125 mg tablet,delayed release -- 14:33 02/16/25 [facility] Erlin Friend R.N. citalopram 20 mg tablet -- 14:33 02/16/25 [facility] Erlin Friend R.N. aspirin 81 mg tablet -- 14:36 02/16/25 [facility] Erlin Friend R.N. ZyrTEC 10 mg capsule -- 14:36 02/16/25 [facility] Erlin Friend R.N. Allergies: amoxicillin -- 14:37 02/16/25 [facility] Erlin Friend R.N. Problems: Heart Failure -- 14:23 02/16/25 [facility] Erlin Friend R.N. Hypertension -- 14:02/16/25 [facility] Erlin Friend R.N. Diabetes Mellitus -- 14:02/16/25 [facility] Erlin Friend R.N. Neuropathy -- 14:02/16/25 [facility] Erlin Friend R.N. Alzheimer's Disease -- 14:02/16/25 [facility] Erlin Friend R.N. Depression -- 14:02/16/25 [facility] Erlin Friend R.N. Gastroesophageal Reflux -- 14:02/16/25 [facility] Erlin Friend R.N. Surgeries: Breast Augmentation. reduction -- 14:02/16/25 TYRONE Friend R.N. Cardiac Surgery. bypass x4 -- 14:02/16/25 TYRONE Friend R.N. Hysterectomy -- 14:02/16/25 [facility] Erlin Friend R.N. 2 of 5 Nurse Narrative History 14:20 02/16/25. SOCIAL HX: Never smoker. No alcohol use or drug use. The patient has not traveled outside the [place] Infectious disease exposure: No infectious disease exposure. ABUSE ASSESSMENT: The patient answered "yes" to the question(s) "Do you feel safe in your home?" and "no" to the question(s) "Are you afraid to go home?", "Are you afraid of your partner or someone close to you?", Has your partner or someone close to you emotionally, physically, or sexually assaulted you?", "Has your partner or someone close to you threatened to harm/ kill you?", "Did your partner or someone close to you cause the presenting injury(s)?", "Has your partner or someone close to you ever used a weapon towards you?", "Have children witnessed violence in the home?" and "Has your partner or someone close to you physically abused children?". No report of abuse. SELF HARM ASSESSMENT: Self harm assessment was performed. The patient answered no to the question(s) "Have you recently felt down, depressed, or hopeless?", "Do you have thoughts of harming or killing yourself?", "Do you have a plan for harming or killing yourself?", "Have you recently had thoughts about harming or killing others?", "Do you have any dangerous items in your possession?", Have you noticed less interest or pleasure in doing things?", "Are you here because you tried to hurt yourself?" and Have you ever tried to hurt yourself before today?". NUTRITIONAL RISK ASSESSMENT: The nutritional risk assessment revealed no deficiencies. FUNCTIONAL ASSESSMENT: Functional assessment: no impairments noted. LEARNING NEEDS ASSESSMENT: The learning needs assessment revealed no barriers. FALL RISK ASSESSMENT: Fall risk assessment completed. Risk factors identified include patient age greater than 65 years and history of fall. Fall interventions initiated. Patient placed on stretcher. Side rails up x2. SKIN INTEGRITY ASSESSMENT: Skin integrity risk assessment completed. No skin integrity risk identified. -- 14:02/16/25 EDT Erlin Friend R.N. Interventions 14:02/16/25. Identification band and allergy band on patient. Advanced care plan (full). Protocol not initiated. Precautions not initiated. -- 14:02/16/25 EDStephie Friend R.N. 3 of 5 Nurse Narrative PHYSICAL ASSESSMENT 14:46 02/16/25. GENERAL / NEURO / PSYCH: Alert. RESPIRATORY: Respirations not labored. Breath sounds within normal limits. CVS: Normal heart rate and rhythm. Capillary refill less than 2 seconds. GI / : Abdomen soft. Bowel sounds within normal limits. EXTREMITIES: Sensation intact in extremities. ROM of extremities within normal limits. BACK: Normal inspection of the neck and back. No neck or back tenderness. -- 14:46 02/16/25 TYRONE Friend R.N. 14:48 02/16/25. ( patient has dementia and falls a lot at home patients is concerned about caring for her). -- 14:48 02/16/25 TYRONE Friend R.N. NURSING PROGRESS NOTES 14:39 02/16/25. Ondansetron (Zofran) ODT PO 4 mg given. Confirmed 5 rights. -- 14:39 02/16/25 TYRONE Friend R.N. 14:40 02/16/25. MORPHine IM 4 mg given. Confirmed 5 rights. -- 14:40 02/16/25 EDStephie Friend R.N. 14:57 02/16/25. GENERAL / NEURO / PSYCH: Alert. Oriented X 4. RESPIRATORY: No respiratory distress. Breath sounds normal. SKIN: Skin is warm and dry. Skin color within normal limits. Patient transported to NH. Two patient identifiers checked. Call light placed in reach. Side rails up x 2. Bed placed in lowest position. Brakes of bed on. Brakes of chair on. ( lower back pain from fall). -- 14:57 02/16/25 TYRONE Friend R.N. 17:50 02/16/25. HR: 56 bpm. O2 saturation: 89%. -- 18:46 02/16/25 TYRONE Friend R.N. 17:51 02/16/25. BP: 133/57 MAP: 82 mmHg. HR: 56 bpm. -- 18:46 02/16/25 TYRONE Friend R.N. 18:00 02/16/25. HR: 58 bpm. O2 saturation: 91%. -- 18:46 02/16/25 EDT Erlin Friend R.N. 18:05 02/16/25. BP: 132/69 MAP: 77 mmHg. HR: 58 bpm. -- 18:46 02/16/25 EDT Erlin Friend R.N. 18:20 02/16/25. BP: 111/94 MAP: 98 mmHg. HR: 98 bpm. -- 18:46 02/16/25 EDT Erlin Friend R.N. 18:20 02/16/25. HR: 59 bpm. O2 saturation: 83%. -- 18:46 02/16/25 EDT Erlin Friend R.N. 18:35 02/16/25. HR: 56 bpm. O2 saturation: 78%. -- 18:46 02/16/25 EDT Erlin Friend R.N. 18:36 02/16/25. BP: 134/48 MAP: 76 mmHg. HR: 51 bpm. -- 18:46 02/16/25 EDT Erlin Friend R.N. 18:47 02/16/25. ( REPORT TO KAVYA FORREST SBAR FORMAT). -- 18:47 02/16/25 EDT Erlin Friend R.N. DISPOSITION / DISCHARGE 18:48 02/16/25. Condition at departure: improved. Reviewed warnings. Reviewed medication(s). Treatments reviewed. Reviewed referrals. Admitted to [facility]. -- 18:48 02/16/25 EDT Erlin Friend R.N. 4 of 5 Nurse Narrative Departure time: 18:53 02/16/2025. -- 18:53 02/16/25 EDT Erlin Friend R.N. (Electronically signed by Erlin Friend R.N. 02/16/25 18:53:51 EDT) Generated by [facility] 5 of 5 ED PHYSICIAN CLINICAL REPORT Observed: 02/16/2025 2:15 PM Status: F Source: [facility] Narrative Physician Clinical Narrative [address] [address] [id number] 02/16/2025 14:15:00 [id number] Sex[facility] Female : 1955 Age: 69y Disposition: Admit Disposition Decision Time: 18:49 02/16/2025 Measurements Wt: 88.5 kg, Ht/Wero: 62.0 in, BMI: 35.67 Initial Vital Sign Measured Time BP MAP HR RR O2Sat ETCO2 Temp Pain GCS RTS 14:36 02/16/2025 87/68 74 50 18 97% 97.9 F 9 Time Seen: 14:19 02/16/2025. Arrived- By private vehicle. Historian- patient. HISTORY OF PRESENT ILLNESS Chief Complaint: FALL: while walking. Landed on head and back. Location of injuries- head and mid and lower back. The injury occurred 2 weeks. Fell. Occurred at home. The patient complains of moderate pain. No loss of consciousness. REVIEW OF SYSTEMS NEUROLOGICAL: No numbness or weakness. The patient has had a headache. RESPIRATORY: No difficulty breathing. GI: No nausea or vomiting. 1 of 11 Narrative PAST HISTORY Alzheimer's Disease Depression Diabetes Mellitus Gastroesophageal Reflux Heart Failure Hypertension Neuropathy Surgeries: Breast Augmentation: Body Site reduction Cardiac Surgery: Body Site bypass x4 Hysterectomy Medications: albuterol sulfate 2.5 mg/3 mL (0.083 %) solution for nebulization albuterol sulfate HFA 90 mcg/actuation aerosol inhaler amitriptyline 10 mg tablet amlodipine 5 mg tablet aspirin 81 mg tablet atorvastatin 80 mg tablet citalopram 20 mg tablet clopidogrel 75 mg tablet divalproex 125 mg tablet,delayed release famotidine 20 mg tablet fenofibrate 160 mg tablet furosemide 40 mg tablet gabapentin 100 mg capsule isosorbide mononitrate ER 30 mg tablet,extended release 24 hr Januvia 50 mg tablet memantine 10 mg tablet montelukast 10 mg tablet oxybutynin chloride 5 mg tablet QNASL 80 mcg/actuation nasal aerosol spray ranolazine ER 1,000 mg tablet,extended release,12 hr ZyrTEC 10 mg capsule 2 of 11 Narrative Allergies: amoxicillin SOCIAL HISTORY No alcohol use or drug use. ADDITIONAL NOTES The nursing notes have been reviewed. PHYSICAL EXAM Vital Signs: Have been reviewed. Appearance: Alert. No acute distress. Head: Head non-tender. No swelling of head. Eyes: Pupils equal, round and reactive to light. EOM intact. ENT: Pharynx normal. Neck: Painless ROM. Non-tender. CVS: Heart sounds normal. Pulses normal. Respiratory: Breath sounds normal. Chest nontender. Abdomen: Soft and nontender. Back: Tenderness in the right mid and lower thoracic area and right upper lumbar area. Skin: Skin intact. Skin warm and dry. Extremities: Pelvis stable. No lower extremity edema. Neuro: Oriented X 3. No motor deficit. No sensory deficit. LABS, X-RAYS, AND EKG CT C-Spine: No acute disease. CT Head: No acute disease. Laboratory Tests: CBC + DIFF Final MYLES: 02/16/2025 17:03:00 EDT MsgRcvd: 02/16/2025 17:43 EDT 3 of 11 Narrative Lab Test Result Reference Status Received Comments 02/16/2025 17:43 CBC-COMPLETE CBC + DIFF Final EDT BLOOD COUNT 02/16/2025 17:43 WBC 9.0 x 10/UL 4.5 - 10.8 Final EDT 3.54 x 10/UL 02/16/2025 17:43 RBC 4.10 - 5.30 Final Below low normal EDT 11.1 g/dl 02/16/2025 17:43 HEMOGLOBIN 12.0 - 16.0 Final Below low normal EDT 31.9 % 02/16/2025 17:43 HEMATOCRIT 34.0 - 46.0 Final Below low normal EDT 02/16/2025 17:43 MCV 90 fl 80 - 99 Final EDT 02/16/2025 17:43 MCH 31 pg 27 - 33 Final EDT 02/16/2025 17:43 MCHC 35 X10 3 32 - 36 Final EDT 02/16/2025 17:43 RDW/CV 12.7 % 12.0 - 15.6 Final EDT 02/16/2025 17:43 PLATELET 319 x10/UL 150 - 450 Final EDT 02/16/2025 17:43 AUTOMATED MPV 7.1 fl 6.6 - 10.5 Final EDT DIFFERENTIAL 02/16/2025 17:43 NEUT % 70.0 % 46.0 - 76.0 Final EDT 18.1 % 02/16/2025 17:43 LYMPH % 20.0 - 45.0 Final Below low normal EDT 4 of 11 Narrative Lab Test Result Reference Status Received Comments 11.5 % 02/16/2025 17:43 MONOS % 0.0 - 10.0 Final Above high normal EDT 02/16/2025 17:43 EO % 0.3 % 0.0 - 7.0 Final EDT 02/16/2025 17:43 BASO % 0.2 % 0.0 - 2.0 Final EDT 02/16/2025 17:43 Lymph # 1.63 x10/UL 0.80 - 2.80 Final EDT 02/16/2025 17:43 Neut # 6.30 x10/UL 1.50 - 7.10 Final EDT 1.04 x10/UL 02/16/2025 17:43 [place] # 0.20 - 1.00 Final Above high normal EDT 02/16/2025 17:43 EO # 0.02 x10/UL 0.00 - 0.50 Final EDT 02/16/2025 17:43 Baso # 0.02 x10/UL 0.00 - 0.10 Final EDT 02/16/2025 17:43 MANUAL DIFF SEE BELOW Final EDT 02/16/2025 17:43 SEGS 70 % 46 - 76 Final EDT 18 % 02/16/2025 17:43 LYMPH 20 - 45 Final Below low normal EDT 11 % 02/16/2025 17:43 MONOS 0 - 10 Final Above high normal EDT 02/16/2025 17:43 BASO 1.0 % 0.0 - 2.0 Final EDT 5 of 11 Narrative Lab Test Result Reference Status Received Comments 02/16/2025 17:43 CELL COUNT 100 Final EDT 02/16/2025 17:43 MORPHOLOGY REVIEWED Final EDT CMP with eGFR Final MYLES: 02/16/2025 17:03:00 EDT MsgRcvd: 02/16/2025 17:37 EDT Lab Test Result Reference Status Received Comments COMPREHENSIVE 02/16/2025 CMP with eGFR Final METABOLIC 17:37 EDT PANEL 02/16/2025 SODIUM 140 mmol/l 136 - 145 Final 17:37 EDT 02/16/2025 POTASSIUM 5.0 mmol/L 3.5 - 5.1 Final 17:37 EDT 02/16/2025 CHLORIDE 104 mmol/L 98 - 107 Final 17:37 EDT 02/16/2025 CO2 28.3 mmol/L 21.0 - 32.0 Final 17:37 EDT 02/16/2025 GLUCOSE 89 mg/dl 74 - 106 Final 17:37 EDT 36 mg/dl 02/16/2025 BUN Above high 7 - 18 Final 17:37 EDT normal 2.09 mg/dl 02/16/2025 CREATININE Above high 0.55 - 1.02 Final 17:37 EDT normal 6 of 11 Narrative Lab Test Result Reference Status Received Comments 02/16/2025 AST/SGOT 19 U/L 13 - 39 Final 17:37 EDT 39 U/L 02/16/2025 ALK PHOS 46 - 116 Final Below low normal 17:37 EDT 02/16/2025 CALCIUM 9.9 mg/dl 8.5 - 10.1 Final 17:37 EDT TOTAL 02/16/2025 7.3 g/dl 6.4 - 8.2 Final PROTEIN 17:37 EDT 02/16/2025 ALBUMIN 3.6 g/dL 3.4 - 5.0 Final 17:37 EDT 02/16/2025 GLOBULIN 3.7 G/DL 1.5 - 3.8 Final 17:37 EDT 02/16/2025 A/G RATIO 1.0 0.9 - 1.6 Final 17:37 EDT 02/16/2025 TOTAL BILI 0.5 mg/dl 0.2 - 1.0 Final 17:37 EDT 02/16/2025 B/C RATIO 17 ratio 0 - 30 Final 17:37 EDT 02/16/2025 ALT/SGPT 21 U/L 16 - 63 Final 17:37 EDT 02/16/2025 ANION GAP 13 mmol/L 10 - 20 Final 17:37 EDT 02/16/2025 AGE 69 years Final 17:37 EDT 23 ML/MINUTE 02/16/2025 eGFR 60 - 999 Final Below low normal 17:37 EDT 7 of 11 Narrative Lab Test Result Reference Status Received Comments ACCORDING TO THE NATIONAL KIDNEY DISEASE EDUCATION PROGRAM(NKDE), A NORMAL eGFR IS A VALUE GREATER THAN OR EQUAL TO 60 ML/MIN/1.73 SQ METERS. 28 ML/MINUTE 02/16/2025 CHRONIC KIDNEY eGFR(AA) 60 - 999 Final Below low normal 17:37 EDT DISEASE: <60mL/MIN/1.73 SQ METERS KIDNEY FAILURE: <15mL/MIN/1.73 SQ METERS THIS TEST SHOULD ONLY BE USED FOR PATIENTS 18 YEARS OF AGE AND OLDER. URINALYSIS Final MYLES: 02/16/2025 17:03:00 EDT MsgRcvd: 02/16/2025 17:49 EDT Lab Test Result Reference Status Received Comments 02/16/2025 17:49 URINALYSIS Final URINALYSIS EDT 8 of 11 Narrative Lab Test Result Reference Status Received Comments 02/16/2025 17:49 Specimen Type R New Order EDT NORMAL: 02/16/2025 17:49 Color yellow Final YELLOW EDT NORMAL: 02/16/2025 17:49 Clarity clear Final CLEAR EDT NORMAL: 02/16/2025 17:49 ph 6 Final 5.0-8.0 EDT 15 NORMAL: 02/16/2025 17:49 Protein Final Abnormal NEGATIVE EDT NORMAL: 02/16/2025 17:49 Glucose NORM Final NORMAL EDT NORMAL: 02/16/2025 17:49 Ketone NEG Final NEGATIVE EDT NORMAL: 02/16/2025 17:49 Bilirubin NEG Final NEGATIVE EDT NORMAL: 02/16/2025 17:49 Blood NEG Final NEGATIVE EDT NORMAL: 02/16/2025 17:49 Urobilinog NORM Final NORMAL EDT NORMAL: 02/16/2025 17:49 Sp [place] 1.010 Final 1.010-1.030 EDT NORMAL: 02/16/2025 17:49 Nitrite NEG Final NEGATIVE EDT 25 NORMAL: 02/16/2025 17:49 Leukocytes Final Abnormal NEGATIVE EDT 9 of 11 Narrative Lab Test Result Reference Status Received Comments 02/16/2025 17:49 Microscopic SEE BELOW Final MICROSCOPIC EDT 02/16/2025 17:49 Wbc 1-5 0-5/hpf Final EDT 02/16/2025 17:49 Rbc 0-5 0-3/hpf Final EDT 02/16/2025 17:49 Casts NONE Final EDT 02/16/2025 17:49 Crystals NONE Final EDT 02/16/2025 17:49 Amorphous NONE Final EDT 02/16/2025 17:49 Bacteria 1+ Final EDT 02/16/2025 17:49 Epi Cells OCC Final EDT 02/16/2025 17:49 Mucous NONE Final EDT 02/16/2025 17:49 Yeast NONE Final EDT PROGRESS AND PROCEDURES Differential Diagnosis: Other possible considerations: Vertebral fracture, closed head injury, intracranial hemorrhage, electrolyte abnormality, volume depletion, frequent falls. MEDICAL DECISION MAKING: (patient having significant pain in her thoracic spine. Treated with intramuscular morphine and ODT Zofran. CT brain and cervical spine negative. Thoracic spine shows T10 compression fracture without retropulsion. Lumbar spine without acute fracture. Patient found to have a of 11 Narrative creatinine of 2 with none for comparison. We will be started on gentle hydration. No evidence of UTI. After extensive discussion with the family at the bedside they are agreeable the patient being admitted for physical therapy evaluation and possible rehab placement. Stable at time of admission.). Disposition: Disposition Decision Time: 18:49 02/16/2025. Patient admitted. Admitted in good condition. Condition: good. CLINICAL IMPRESSION T10 fracture. Renal insufficiency. Fall. (Electronically signed by Scottie Rosario D.O. 02/16/25 18:50:42 EDT) Generated by [facility] ED VISIT SUMMARY Observed: 02/16/2025 2:15 PM Status: F Source: [facility] Visit Overview Visit Overview [address] [address] [id number] 02/16/2025 Patient: PRAVEEN PARKINSON Sex: Female : 1955 Age: 69y 02/16/2025 06:53 PM EDT ED Arrival:14:15 02/16/2025 EDT Status: Recent Travel:no Language:eng Adv Directive: Isolation Status: Ethnicity:N Fall Risk:risk Infectious Disease Exposure:no Measurements:5'2" / 157.5 Self-Harm Status:risk Sepsis Screen:negative cm 195.0 lb / 88.5 kg Chief Complaint:BACK PAIN ALLERGIES amoxicillin HOME MEDICATIONS albuterol sulfate 2.5 mg/3 mL (0.083 %) solution for nebulization albuterol sulfate HFA 90 mcg/actuation aerosol inhaler amitriptyline 10 mg tablet amlodipine 5 mg tablet aspirin 81 mg tablet atorvastatin 80 mg tablet citalopram 20 mg tablet clopidogrel 75 mg tablet 1 of 4 Visit Overview divalproex 125 mg tablet,delayed release famotidine 20 mg tablet fenofibrate 160 mg tablet furosemide 40 mg tablet gabapentin 100 mg capsule isosorbide mononitrate ER 30 mg tablet,extended release 24 hr Januvia 50 mg tablet memantine 10 mg tablet montelukast 10 mg tablet oxybutynin chloride 5 mg tablet QNASL 80 mcg/actuation nasal aerosol spray ranolazine ER 1,000 mg tablet,extended release,12 hr ZyrTEC 10 mg capsule PAST MEDICAL HISTORY / PROBLEMS Alzheimer's Disease Depression Diabetes Mellitus Gastroesophageal Reflux Heart Failure Hypertension Neuropathy PAST SURGICAL HISTORY Breast Augmentation. reduction Cardiac Surgery. bypass x4 Hysterectomy SOCIAL HISTORY Nutritional assessment: No deficits Functional assessment: No impairments Learning needs: No barriers Smoking status: No Alcohol use: No Drug use: No 2 of 4 Visit Overview ED COURSE MEDICATIONS GIVEN IN EMERGENCY DEPARTMENT 14:39 02/16/25 Ondansetron (Zofran) ODT PO 4 mg 14:40 02/16/25 MORPHine IM 4 mg IV SITE INFORMATION INTAKE OUTPUT REASSESMENT (most recent) 14:57 02/16/25. GENERAL / NEURO / PSYCH: Alert. Oriented X 4. RESPIRATORY: No respiratory distress. Breath sounds normal. SKIN: Skin is warm and dry. Skin color within normal limits. Patient transported to NH. Two patient identifiers checked. Call light placed in reach. Side rails up x 2. Bed placed in lowest position. Brakes of bed on. Brakes of chair on. ( lower back pain from fall). VITAL SIGNS First Vitals Last Vitals Temp 14:36 02/16/25 97.9 F Temp 18:50 02/16/25 BP 14:36 02/16/25 87/68 BP 18:50 02/16/25 HR 14:36 02/16/25 50 HR 18:50 02/16/25 52 RR 14:36 02/16/25 18 RR 18:50 02/16/25 O2 Sat 14:36 02/16/25 97% O2 Sat 18:50 02/16/25 87% Pain 14:36 02/16/25 9 Pain 18:50 02/16/25 ETCO2 14:36 02/16/25 ETCO2 18:50 02/16/25 GCS 14:36 02/16/25 GCS 18:50 02/16/25 RTS 14:36 02/16/25 RTS 18:50 02/16/25 PROCEDURES NURSING INTERVENTIONS LABS / STUDIES LABS / STUDIES ORDERED CBC w Diff CMP 3 of [address] Brain wo Cont CT C-Spine wo Cont CT L-Spine wo Cont CT T-Spine wo Cont Urinalysis CLINICAL IMPRESSION FALL RENAL INSUFFICIENCY T10 FRACTURE 4 of 4 ED ORDER SHEET (CPOE ONLY) Observed: 11/2024 2:15 PM Status: F Source: [facility] Order Sheet Order Sheet [facility] [address] [place] [address] [id number] 02/16/2025 Patient: PRAVEEN PARKINSON Sex: Female : 1955 Age: 69y MEASUREMENTS: Wt: 88.5 kg, Ht/Wero: 62.0 in, BMI: 35.67 ALLERGIES: amoxicillin MEDICATION/IV/DRIP/FLUID ORDERS Order Description Priority Entered Acknowledged Completed Ondansetron (Zofran) ODT PO4 14:22 02/16/2025 14:37 14:39 mg (NOW x1) Scottie Rosario, 02/16/2025 02/16/2025 Erlin Ríos R.N. R.N. MORPHine IM4 mg (NOW x1, 14:22 02/16/2025 14:37 14:40 HIGH ALERT MEDICATION) Scottie Rosario, 02/16/2025 02/16/2025 Erlin Ríos R.N. R.N. LAB ORDERS Order Description Priority Entered Acknowledged Collected Completed CBC w Diff Stat Stat 16:59 02/16/2025 17:38 02/16/2025 Florentin Barnhart D.OHarmeet R.N. CMP Stat Stat 16:59 02/16/2025 17:38 02/16/2025 Scottie Friend, 1 of 3 Order Sheet Radha Rosario RDee Urinalysis Stat Stat 16:59 02/16/2025 17:38 02/16/2025 Florentin Barnhart D.O. R.N. DIAGNOSTIC STUDY ORDERS Order Description Priority Entered Acknowledged Completed CT T-Spine wo Cont Stat Stat 14:22 02/16/2025 14:37 Scottie Rosario, 02/16/2025 Emily RíosNHarmeet Reason for Study: Trauma/Injury CT L-Spine wo Cont Stat Stat 14:22 02/16/2025 14:37 Scottie Rosario, 02/16/2025 Radha Friend R.N. Reason for Study: Trauma/Injury CT Brain wo Cont Stat Stat 14:22 02/16/2025 14:37 Scottie Rosario, 02/16/2025 Radha Friend R.N. Reason for Study: Trauma/Injury CT C-Spine wo Cont Stat Stat 14:22 02/16/2025 14:37 Scottie Rosario, 02/16/2025 Radha Frined R.N. Reason for Study: Trauma/Injury STAFF ORDERS Order Description Priority Entered Acknowledged Collected Completed 2 of 3 Order Sheet IV Saline Lock 16:59 02/16/2025 17:38 02/16/2025 Florentin Barnhart D.O. R.N. [Electronically signed by Scottie Rosario D.O. (02/16/2025 18:50 EDT)] 3 of 3 ED SUPER BILL Observed: 02/16/2025 2:15 PM Status: F Source: [address] [id number] 02/16/2025 Patient: PRAVEEN PARKINSON Sex: Female : 1955 Age: 69y Facility Professional Category Item Description Code Code Quantity Fee Total Nurse/E/M EMERGENCY 214727 1 $0.00 $0.00 DEPT VISIT HIGH SEVERITYFUNCJ (47395-09) Nurse/IV/IM/Infusions IM/SQ (76223) 585866 1 $0.00 $0.00 Grand $0.00 Total Providers Scottie Rosario D.O. Chief Complaint FALL: while walking. Landed on head and back. Principal Diagnosis T10 fracture. Renal insufficiency. Fall. 1 of 2 [facility] ICD-10 Codes S22.079A: Unspecified fracture of T9-T10 vertebra, initial encounter for closed fracture N28.9: Disorder of kidney and ureter, unspecified W19.xxxA: Unspecified fall, initial encounter 2 of 2 PROGRESS Observed: 01/25/2025 9:07 AM Status: COMPLETED Source: [facility] HNO ID: [id number] Author: ARYAN MOORE APRN.POSTIE Service: ? Author Type: Nurse Practitioner Type: Progress Notes Filed: 01/25/2025 09:28 Note Text: I have communicated my name and active licensure. The patient's identity and physical location were verified at the time of this visit. Either the patient or their legal district sales representative has been informed of the risks and benefits of -- and alternatives to -- treatment through a remote evaluation and consents to proceed with the evaluation remotely. Department of Kidney Medicine Medical Specialties [facility] CHIEF COMPLAINT: CKD and HTN HPI: Ms. Parkinson is a 69 year old female who presents with CKD and HTN follow up See prev visit notes for full details. 03/23/[address] Hemphill Started on Irbesartan 150mg daily Clonidine titrated off; some worsening Alzheimer's symptoms while tapering and then resolved after 48hrs. We should consider SGLT2 inh in the future as well. Advised on PPIs>>since that time she has started Pepcid in place of prilosec . 08/28/24 office visit with me Interval Events: 10/12/24 FINAL DIAGNOSIS Skin, left distal forearm, excision: - Nonkeratinizing squamous cell carcinoma in situ, see comment. Medication has been added for Alzheimer's by her Neurologist--legs felt heavy and she was tired; timing changed to bedtime and she is tolerating better. She has been gaining weight. Latest wt is 195#, she would like to lose weight. No nausea, vomiting, diarrhea or constipation. No urinary issues. Intermittent cough which she attributes to allergies. + shortness of breath with exertion. No chest pain or palpitations. Occasional lightheadedness/loss of balance when bending over. Using walker for assistance w/ambulation. No headaches. bp today 140/61, HR 50 gluc yesterday 117 MEDICATIONS: divalproex DR (DEPAKOTE) 125 mg EC tablet Take 1 tablet by mouth two times a day. SITagliptin phosphate (JANUVIA) 50 mg tablet Take 1 tablet by mouth once daily. irbesartan (AVAPRO) 150 mg tablet TAKE 1 TABLET DAILY isosorbide mononitrate ER (IMDUR) 30 mg 24 hr tablet Take 1 tablet by mouth two times a day. amLODIPine (NORVASC) 5 mg tablet Take 1 tablet by mouth once daily. QNASL 80 mcg/actuation amitriptyline (ELAVIL) 10 mg tablet Take 1 tablet by mouth daily at bedtime. (Patient taking differently: Take 10 mg by mouth daily at bedtime. Take 2 tablets by mouth daily at bedtime) cholecalciferol (VITAMIN D-3) 50 mcg (2,000 unit) tablet Take 1 tablet by mouth once daily. mepolizumab (NUCALA SUBCUTANEOUS) Inject subcutaneously. Inject once a month gabapentin (NEURONTIN) 100 mg capsule Daily at bedtime montelukast (SINGULAIR) 10 mg tablet Take 1 tablet by mouth daily at bedtime. fluticasone-vilanterol (BREO ELLIPTA) 100-25 mcg/dose inhaler Inhale 1 Inhalation as instructed once daily. cetirizine (ZYRTEC) 10 mg tablet Take 1 tablet by mouth once daily. furosemide (LASIX) 40 mg tablet Take 20 mg by mouth once daily. nebivolol (BYSTOLIC) 10 mg tablet Take 10 mg by mouth once daily. Fenofibrate (LOFIBRA) 160 mg tablet Take 160 mg by mouth once daily. atorvastatin (LIPITOR) 80 mg tablet Take 80 mg by mouth once daily. nitroglycerin sublingual (NITROQUICK) 0.3 mg SL tablet Dissolve 0.3 mg under the tongue every 5 minutes as needed. ranolazine SR (RANEXA) 1,000 mg tab ER 12 hr Take by mouth. clopidogrel (PLAVIX) 75 mg tablet Take 1 tablet by mouth once daily. aspirin, enteric coated (ASPIRIN, ENTERIC COATED) 81 mg EC tablet Take 1 tablet by mouth once daily. citalopram (CELEXA) 20 mg tablet Take 1 tablet by mouth once daily. multivitamin tablet Take 1 tablet by mouth once daily. ALLERGIES: ALLERGIES Allergen Reactions Augmentin [Amoxicil* GI Upset Diarrhea, vomitting Lisinopril Cough PHYSICAL EXAM: There were no vitals taken for this visit. BP - standardized method Pulse 1 2 3 Average Orthostatic vitals Supine Sitting Standing BP cuff location BP cuff size Comments for BP values First BP (right) First BP (left) Last 3 Encounter BP Readings: Date: BP: 01/28/2024 100/74 02/10/2023 119/70 11/24/2021 136/65 Constitutional: No acute distress, Responsive, Normal habitus, Well-nourished, and accompanied by her spouse Eyes: Conjunctiva clear and sclerae anicteric Ear, Nose, and Throat: Hearing normal, Lips normal, and Dentition normal Neck:Trachea midline No jugular venous distension Psychiatric: Alert and oriented x self, place, time, and setting Normal mood/affect DATA: Diagnostic tests reviewed for today's visit: Blood work, imaging studies, and office notes were reviewed in [facility] ASSESSMENT: 69 year old female who presents with CKD IIIb likely d/t to DM, HTN and severe vasculopathy. ? 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 + albuminuria; ARB added in Mar 2024 mild rise in scr as expected latest scr 1.8, baseline ~ 1.4-1.6 -HTN-home bp controlled; monitored by [facility] nurse -Hx of CVA and known CAD--NH, s/p PTCA -Hx of GERD; switched from PPI to Pepcid and symptoms controlled thus far -V2GI-ig oral rx, A1c 6.3 (5.8), may be related to weight gain -New diagnosis of Alzheimer's, is primary Caregiver New medication added and she seems to be tolerated PLAN: - Dietary modifications to help with blood sugar control and also to help promote weight loss, reduce CHO intake Continue present mgmt Avoid NSAIDS and iodinated contrast exposure Increase physical activity as tolerated RTC 3-4 months, virtual visit, labs prior-renal panel, CBC Disclosures: Parts of the current progress note may have been copied from a previous note, updates have been made as clinically relevant. time: 20 minutes Aryan Moore APRN.POSTIE Staff, Department of Kidney Medicine 01/25/2025 9:08 AM CC: PRIMARY CARE PHYSICIAN: Philip Ureña MD PROGRESS Observed: 01/23/2025 3:00 PM Status: COMPLETED Source: [facility] HNO ID: [id number] Author: FITO KEBEDE, DO Service: ? Author Type: Physician Type: Progress Notes Filed: 01/23/2025 18:41 Note Text: Endocrinology Virtual Visit This is a virtual visit using [employer] Zoom Video Visit. It required patient-provider interaction for the medical decision making as documented below. I have communicated my name and active licensure. The patient's identity and physical location were verified at the time of this visit. Either the patient or their legal district sales representative has been informed of the risks and benefits of -- and alternatives to -- treatment through a remote evaluation and consents to proceed with the evaluation remotely. Praveen Parkinson is a 69 year old year old female seen for TYPE 2 DIABETES Approximate date of diagnosis: 2009. Pt also has hx of Obesity, hypertension, hyperlipidemia, 2 vessel CABG 1993, NH 2018, Stroke in 2009, TIA 2013, CKD stage 3. PCP: Dr Philip Ureña, cardio Dr. Ankit Jioner at [facility], neuro Dr. Yasir Manriquez in [place]. 03/21/14 visit: Initial visit: Patient is here at the request of PCP for further evaluation of uncontrolled type 2 diabetes. Pt lives in [facility]. On metformin only 10/21/15: lost to follow-up since 12/28. Pt is currently taking metformin 1,000 mg bid. Added Januvia 100 mg daily. 03/05/16 visit Continued Januvia and metformin. 09/07/16: Continued Januvia and metformin. 02/22/17:The patient did not show for this appointment. 05/31/17:HbA1c 5.8% GFR 42 = stage 3 CKD, monitor - stay on same DM meds for now. Elevated microalbumin - pt on ARB. 11/29/17: HbA1c 6.2% -- Continue metformin and Januvia. 06/01/18: HbA1c 6.1%. 06/03/2018:Cr higher than last year (GFR 36). Change Januvia to renal dose 50 mg daily. 11/30/18: HbA1c 5.3%. Had NH SeptemberSeptember 16. States diagnosed with severe HTN, CHF, now on Lasix. Pt is currently taking metformin 1,000 mg bid and Januvia 50 mg daily. Labs done at [facility] 11/28/18: Cr 1.3 (GFR 41), chol 127, LDL 43, HDL 27, TG 285. Reviewed more cautious use of metformin and DPP4 inhibitor in the setting of CKD and CHF. Decrease metformin to 500 mg bid. Continue Januvia 50 mg daily. 06/05/19: HbA1c 5.7%. Pt here with today. Pt feeling sluggish upon arrival to office today -- delayed eating lunch due to long drive. Fingerstick glucose 59 -- treated with juice. 12/05/19: Telemedicine Visit - [facility] Virtual Visit Note due to COVID-19 PANDEMIC. Current medication regimen: Pt is currently taking metformin 500 mg bid and Januvia 50 mg daily. . 06/04/20 office visit: HbA1c 5.9% 05/21/20: Cr 1.4 (GFR 38), TSH 5.07 (0.34-5.6), chol 144, TG 258 Had MRI of foot to r/o stress fracture - has follow-up. States no evidence of osteomyelitis. Noting LE swelling. States she is getting diabetic shoes. States had cataract surgery x 2 since last visit. States in October she was off balance and fell -diagnosed with neuropathy. Now using a cane. 11/30/20: HbA1c 6.6% 12/10/20 visit: Telemedicine Visit - Distance Health Virtual Visit Note due to COVID-19 PANDEMIC using [employer]. Pt and present for visit. Taking metformin 500 mg bid and Januvia 50 mg dialy States lost balance while working outdoors and fell and hit head on the grass. Checking glucose once daily -- this AM 136, usually 120-130's . Highest was 162. 06/13/21 visit: Telemedicine Visit - Distance Health Virtual Visit Note due to COVID-19 PANDEMIC Pt and present for appt. Current medication regimen: metformin 500 mg bid, Januvia 50 mg daily. 06/04/21 labs from outside lab in [place]: Cr 1.70 (GFR 30), glucose 107, TSH 3.97 (0.35-3.74), free T4 0.96, liver function ok, normal Na/K, HbA1c 6.2% States was off balance and fell earlier this week and bumped her head on the cabinet. States no injury/BROWN and was feeling fine so she didn't seek medical attention. Has carpal tunnel surgery scheduled next week. 11/10/21: Labs done at outside lab fax reviewed: HbA1c 6.8%,Cr 1.63 (GFR 32), TSH 3.85, free T4 0.9, normal urine microalbumin 11/24/21 office visit: Current medication regimen: metformin 500 mg bid, Januvia 50 mg daily. Had meter replaced since was malfunctioning and reading falsely low. Handwritten glucose log reviewed. Testing daily in AM ranging 105-140's with some occasional higher readings in 190's to low 200's States has foot stress fracture left foot and is wearing special shoe. Follows with stereotype finisher monthly. States she is due for new diabetic shoes. Mentions that she has osteoporosis and not currently on meds for this but that PCP had her on a med in the past. Pt states she will see PCP to discuss. Discussed that I don't do osteoporosis management in my endocrine practice. If desired, she could see [facility] osteoporosis clinic (dept of orthopedics) or establish with Dr. Tomlinson or Dr. Bowman of our endocrine group. 05/11/22: Cr 1.66 (GFR 34), BUN 32 05/18/22: Telemedicine Visit - Distance Health Virtual Visit Note Recent labs reviewed with pt and her . Current medication: metformin 500 mg bid and renal dose Januvia 50 mg daily. Since last visit fell and broke left arm - tripped over a puppy. States not a candidate for surgery due to multiple medical problems. 02/10/23 office visit: HbA1c 6.3%. Pt presents with her today. No recent labs to review. Didn't get them done as ordered before appt Current medication: metformin 500 mg bid and renal dose Januvia 50 mg daily. Glucose log reviewed - testing glucoses daily in AM ranging 116-154 Is seeing stereotype finisher for toenail trimming. She has 2 pair of diabetic shoes. Notes occasional tingling in feet. States she saw PCP and was told no new med needed for bone health at this time. Last 2 Encounter Wt Readings: Date: Wt: 02/10/2023 83.5 kg (184 lb) 11/24/2021 83.3 kg (183 lb 11.2 oz) 07/26/23: Labs at outside lab: HbA1c 5.8%, Cr 1.63 (GFR 31), normal LFTs 08/03/23 visit: Telemedicine Visit - Distance Health Virtual Visit Note Recent labs reviewed with pt and her . Current medication: metformin 500 mg bid and renal dose Januvia 50 mg daily. Testing glucose in AM a few times per week-- today 126, previously 109 , highest was 140's. No hypoglycemia. Getting physical therapy for balance training. States had recent eye exam and states mild retinopathy was found. I do not have the report. Continue to monitor on metformin 500 mg bid and renal dose Januvia 50 mg daily. If GFR falls below 30 would need to stop metformin. 01/28/24 OFFICE VISIT: Pt presents with her today. Labs at outside lab: 01/24/24: HbA1c 5.6%, urine test not what I ordered urine creatinine 126.51, UA CR 31. Lab didn't do CMP, TSH, free T4 - or if they did I didn't get the results. Nurse and tried to call lab but unable to reach. Current medication: metformin 500 mg bid and renal dose Januvia 50 mg daily. Testing glucose in AM a few times per week, ranging 111-131. I reviewed handwritten glucose log. 08/02/24: Telemedicine Visit - Distance Health Virtual Visit (note that chart was marked no-show by mistake and staff unable to correct. Ended up doing visit using spotflux video due to tech glitch) Pt and her present for appt. gave most of the history. Pt with worsening memory, now on med for Alzheimer's. states trying to keep her home with him as long as possible but may need to consider a facility for long-term care in the future. Recent labs reviewed. 07/21/24: HbA1c 5.8% Current medication: Januvia 50 mg daily. Metformin was stopped at some point since last appt. Reports glucoses are well controlled with just Januvia now. Glucoses are tested in AM, recently ranging 109-131. Since last appt pt established with specialty food products supervisor Dr. Hemphill and was put on irbesartan. Recently had COVID and was on ABX and inhaler per weatherization and housing inspector. Is on a calcium supplement 650 mg for bone health. Now following with specialty food products supervisor - GFR 31. Nephro note mentions possible addition of SLGT-2 inhibitor in the future for CKD. I am ok with this and nephrology can prescribe if needed for renal indication. This likely won't affect glucose control at such a low GFR. 01/23/25: Telemedicine Visit - Distance Health Virtual Visit 01/03/25: HbA1c 6.3%, Recent labs reviewed Pt and her present for appt. Is getting meds adjusted for Alzheimer's dementia. She is more tired in the afternoon. Current medication: Januvia 50 mg daily Glucose 135 this AM, usually ranging 117-140's in AM. Has gained a few lbs. Reports BP 150/65 149/75 today. THYROID FUNCTION ABNORMALITY 05/11/22 outside lab: TSH 6.79 (0.35-3.74), free T4 0.93 (0.76-1.46) Notes mildly increased fatigue. 02/10/23: [facility] lab: TSH 3.17 ( 0.27-4.2), free T4 1.1 (0.9-1.7), TPO antibody <3.0 (<5.6) 07/26/23: outside lab: TSH 5.17 (9.35-3.74), free T4 0.85 (0.76-1.46) 07/21/24: TSH 2.88, free T4 1.2 -- NORMAL 01/03/25: TSH 5.9 (0.27-4.2) HISTORY REVIEWED (electronic chart updated): PAST MEDICAL HISTORY Diagnosis Date Asthma Class 1 obesity due to excess calories without serious comorbidity with body mass index (BMI) of 33.0 to 33.9 in adult CVA (cerebral vascular accident) (HCC) 2009 again 2013 Depression GERD (gastroesophageal reflux disease) Heart disease HTN (hypertension) Hyperlipidemia Hyperlipidemia Hypertension Hypoglycemia associated with diabetes (HCC) Myocardial infarction (HCC) Osteoporosis S/P PTCA (percutaneous transluminal coronary angioplasty) Type 2 diabetes mellitus with hyperglycemia (HCC) PAST SURGICAL HISTORY Procedure Laterality Date SECTION HX CORONARY ARTERY BYPASS GRAFT HX 1998 2 vessels PAST SURGICAL HISTORY OF Right 1984 adrenalectomy PAST SURGICAL HISTORY OF straighten Nasal Septum TONSILLECTOMY HX FAMILY HISTORY Adopted: Yes Problem Relation Age of Onset other (Unknown) Other Social History Tobacco Use Smoking status: Former Smokeless tobacco: Never Substance Use Topics Alcohol use: No Drug use: No Current Outpatient Medications Medication Sig irbesartan (AVAPRO) 150 mg tablet TAKE 1 TABLET DAILY isosorbide mononitrate ER (IMDUR) 30 mg 24 hr tablet Take 1 tablet by mouth two times a day. amLODIPine (NORVASC) 5 mg tablet Take 1 tablet by mouth once daily. JANUVIA 50 mg tablet take 1 tablet daily QNASL 80 mcg/actuation amitriptyline (ELAVIL) 10 mg tablet Take 1 tablet by mouth daily at bedtime. (Patient taking differently: Take 10 mg by mouth daily at bedtime. Take 2 tablets by mouth daily at bedtime) cholecalciferol (VITAMIN D-3) 50 mcg (2,000 unit) tablet Take 1 tablet by mouth once daily. mepolizumab (NUCALA SUBCUTANEOUS) Inject subcutaneously. Inject once a month gabapentin (NEURONTIN) 100 mg capsule Daily at bedtime montelukast (SINGULAIR) 10 mg tablet Take 1 tablet by mouth daily at bedtime. fluticasone-vilanterol (BREO ELLIPTA) 100-25 mcg/dose inhaler Inhale 1 Inhalation as instructed once daily. cetirizine (ZYRTEC) 10 mg tablet Take 1 tablet by mouth once daily. furosemide (LASIX) 40 mg tablet Take 20 mg by mouth once daily. nebivolol (BYSTOLIC) 10 mg tablet Take 10 mg by mouth once daily. Fenofibrate (LOFIBRA) 160 mg tablet Take 160 mg by mouth once daily. atorvastatin (LIPITOR) 80 mg tablet Take 80 mg by mouth once daily. nitroglycerin sublingual (NITROQUICK) 0.3 mg SL tablet Dissolve 0.3 mg under the tongue every 5 minutes as needed. ranolazine SR (RANEXA) 1,000 mg tab ER 12 hr Take by mouth. clopidogrel (PLAVIX) 75 mg tablet Take 1 tablet by mouth once daily. aspirin, enteric coated (ASPIRIN, ENTERIC COATED) 81 mg EC tablet Take 1 tablet by mouth once daily. citalopram (CELEXA) 20 mg tablet Take 1 tablet by mouth once daily. multivitamin tablet Take 1 tablet by mouth once daily. No current facility-administered medications for this visit. ALLERGIES Allergen Reactions Augmentin [Amoxicil* GI Upset Diarrhea, vomitting Lisinopril Cough Latest Ref Rng 07/21/2024 01/03/2025 WBC 3.70 - 11.00 k/uL 9.35 8.07 RBC 3.90 - 5.20 m/uL 3.63 (L) 3.91 Hemoglobin 11.5 - 15.5 g/dL 11.0 (L) 11.8 Hematocrit 36.0 - 46.0 % 33.3 (L) 36.4 MCV 80.0 - 100.0 fL 91.7 93.1 MCH 26.0 - 34.0 pg 30.3 30.2 MCHC 30.5 - 36.0 g/dL 33.0 32.4 RDW-CV 11.5 - 15.0 % 13.3 12.5 Platelet Count 150 - 400 k/uL 353 308 MPV 9.0 - 12.7 fL 9.2 9.3 Neut% % 66.8 Abs Neut (ANC) 1.45 - 7.50 k/uL 6.24 Lymph% % 21.1 Abs Lymph 1.00 - 4.00 k/uL 1.97 [place]% % 10.7 Abs [place] <0.87 k/uL 1.00 (H) Eosin% % 0.4 Abs Eosin <0.46 k/uL 0.04 Baso% % 0.5 Abs Baso <0.11 k/uL 0.05 Immature Gran % % 0.5 IMMATURE GRANS (ABS) <0.10 k/uL 0.05 NRBC /100 WBC 0.0 Absolute nRBC <0.01 k/uL <0.01 <0.01 DTYPE Auto Protein, Total 6.3 - 8.0 g/dL 7.2 7.0 Albumin 3.9 - 4.9 g/dL 4.5 4.2 Calcium 8.5 - 10.2 mg/dL 10.7 (H) 10.2 Bilirubin, Total 0.2 - 1.3 mg/dL 0.5 0.3 Alkaline Phosphatase 34 - 123 U/L 36 36 AST 13 - 35 U/L 18 14 ALT 7 - 38 U/L 15 14 Glucose 74 - 99 mg/dL 107 (H) 154 (H) BUN 7 - 21 mg/dL 32 (H) 39 (H) Creatinine 0.58 - 0.96 mg/dL 1.77 (H) 1.82 (H) Sodium 136 - 144 mmol/L 138 137 Potassium 3.7 - 5.1 mmol/L 4.7 4.8 Chloride 98 - 107 mmol/L 102 102 CO2 22 - 30 mmol/L 23 23 Anion Gap 8 - 15 mmol/L 13 12 eGFR >=60 mL/min/1.73m? 31 (L) 30 (L) Protein, Urine Random 0 - 20 mg/dL 11 Creatinine, Ur Random (UCRR) 20.0 - 300.0 mg/dL 91.1 Creatinine, Ur Random (UCRR) 20.0 - 300.0 mg/dL 91.1 Protein/Creat Ratio <0.15 mg/mg 0.12 Albumin, Urine Random mg/L 21.2 Albumin/Creat Ratio <30 mg/g 23 Hemoglobin A1C 4.3 - 5.6 % 5.8 (H) 6.3 (H) Estimated Average Glucose mg/dL 120 134 TSH 0.270 - 4.200 mIU/L 2.880 5.900 (H) Free T4 0.9 - 1.7 ng/dL 1.2 PTH, Intact 15 - 65 pg/mL 75 (H) Vitamin D 25 Hydroxy 31.0 - 80.0 ng/mL 29.1 (L) Magnesium 1.7 - 2.3 mg/dL 2.0 Phosphorus 2.7 - 4.8 mg/dL 3.4 ASSESSMENT AND PLAN: 1. Type 2 diabetes mellitus with stage 3b chronic kidney disease, without long-term current use of insulin (HCC) - ICD9: 250.40, 585.3, ICD10: E11.22, N18.32 (primary diagnosis) Recent HbA1c 6.3% and glucoses remain stable. Continue Januvia 50 mg daily. - HEMOGLOBIN A1C 2. Diabetic polyneuropathy associated with type 2 diabetes mellitus (HCC) - ICD9: 250.60, 357.2, ICD10: E11.42 Stable 3. Thyroid function study abnormality - ICD9: 794.5, ICD10: R94.6 TSH minimally elevated off and on in the past. Has not needed levothyroxine. Continue to monitor and repeat labs before next appt in 6 months. - THYROID STIMULATING HORMONE - T4 FREE/FREE THYROXINE 4. Alzheimer's disease (HCC) - ICD9: 331.0, ICD10: G30.9, F02.80 doing most of her care at home. Schedule follow-up in 6 months (virtual visit) with labs done before visit if pt is still living at home at that time. If pt moves into a nursing facility, then the staff there can monitor. DO HERMAN Carmona Observed: 01/23/2025 12:00 AM Status: COMPLETED Source: [facility] Telephone (ENAGST) PRAVEEN PARKINSON ([id number]) 1955 F Date Time Provider Department 01/23/25 FITO KEBEDE ENAGST During your visit today, we recorded the following information about you: Fito Kebede DO 01/23/2025 6:37 PM Signed Please schedule next virtual visit in 6 months for type 2 DM. DO Esther Ramirez Christine 01/24/2025 8:57 AM Signed Follow up virtual appointment scheduled for July 25, 2025. Kamala Santana January 24, 2025 8:57 AM Allergies As of Date: 01/23/2025 Noted Allergy Reaction AUGMENTIN (AMOXICILLIN-POT CLAVUL*06/01/2018 8 - GI Upset Comments: Diarrhea, vomitting LISINOPRIL 02/13/2016 3 - Cough Date Reviewed: 01/23/2025 Reviewed by: Fito Kebede DO - Fully Assessed Reason for Visit: Appointment [186] Prescriptions as of 01/24/2025 - divalproex DR (DEPAKOTE) 125 mg EC tablet Take 1 tablet by mouth two times a day. - SITagliptin phosphate (JANUVIA) 50 mg tablet Take 1 tablet by mouth once daily. - irbesartan (AVAPRO) 150 mg tablet TAKE 1 TABLET DAILY - isosorbide mononitrate ER (IMDUR) 30 mg 24 hr tablet Take 1 tablet by mouth two times a day. - amLODIPine (NORVASC) 5 mg tablet Take 1 tablet by mouth once daily. - QNASL 80 mcg/actuation - amitriptyline (ELAVIL) 10 mg tablet Take 1 tablet by mouth daily at bedtime. - cholecalciferol (VITAMIN D-3) 50 mcg (2,000 unit) tablet Take 1 tablet by mouth once daily. - mepolizumab (NUCALA SUBCUTANEOUS) Inject subcutaneously. Inject once a month - gabapentin (NEURONTIN) 100 mg capsule Daily at bedtime - montelukast (SINGULAIR) 10 mg tablet Take 1 tablet by mouth daily at bedtime. - fluticasone-vilanterol (BREO ELLIPTA) 100-25 mcg/dose inhaler Inhale 1 Inhalation as instructed once daily. - cetirizine (ZYRTEC) 10 mg tablet Take 1 tablet by mouth once daily. - furosemide (LASIX) 40 mg tablet Take 20 mg by mouth once daily. - nebivolol (BYSTOLIC) 10 mg tablet Take 10 mg by mouth once daily. - Fenofibrate (LOFIBRA) 160 mg tablet Take 160 mg by mouth once daily. - atorvastatin (LIPITOR) 80 mg tablet Take 80 mg by mouth once daily. - nitroglycerin sublingual (NITROQUICK) 0.3 mg SL tablet Dissolve 0.3 mg under the tongue every 5 minutes as needed. - ranolazine SR (RANEXA) 1,000 mg tab ER 12 hr Take by mouth. - clopidogrel (PLAVIX) 75 mg tablet Take 1 tablet by mouth once daily. - aspirin, enteric coated (ASPIRIN, ENTERIC COATED) 81 mg EC tablet Take 1 tablet by mouth once daily. - citalopram (CELEXA) 20 mg tablet Take 1 tablet by mouth once daily. - multivitamin tablet Take 1 tablet by mouth once daily. Problem List As Of Date 01/23/2025 Noted Resolved Cellulitis and abscess of toe, unspecified [L03*04/17/2011 Obesity [E66.9] Hyperlipidemia [E78.5] Hypertension [I10] Hypoglycemia associated with diabetes (HCC) [E1* 11/29/2017 Type 2 diabetes mellitus with hyperglycemia (HC* Class 1 obesity due to excess calories without *05/31/2017 Abnormal kidney function [N28.9] 05/31/2017 CKD (chronic kidney disease) stage 3, GFR 30-59*06/03/2018 Myocardial infarction (HCC) [I21.9] 11/30/2018 Type 2 diabetes mellitus with stage 3 chronic k*06/05/2019 Controlled type 2 diabetes with neuropathy (HCC*02/10/2023 Asthma [J45.909] 03/23/2024 CVA (cerebral vascular accident) (HCC) [I63.9] 03/23/2024 HTN (hypertension) [I10] 03/23/2024 S/P PTCA (percutaneous transluminal coronary an*03/23/2024 GERD (gastroesophageal reflux disease) [K21.9] 03/23/2024 Osteoporosis [M81.0] 03/23/2024 Chronic congestive heart failure (HCC) [I50.9] 03/23/2024 Type 2 DM with CKD stage 3 and hypertension (HC*03/23/2024 CKD stage G3b/A2, GFR 30-44 and albumin creatin*03/23/2024 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] 03/23/2024 Encounter Status:Closed by KAMALA SANTANA on 01/24/25 PROT/CREAT UR Collected: 9:58 AM Status: F Source: [facility] Order Comment: Specimen Type : URINE SPECIMEN Ordering Facility: [facility] Address: [address] [place] [address] TYPE CODE TESTS RESULT OUT OF RANGE REFERENCE UNITS LAB 2888-6(LOINC) Prot Ur-mCnc 11 0-20 mg/dL LAB 2161-8(LOINC) Creat Ur-mCnc 91.1 20.0-300.0 mg/dL LAB 2890-2(LOINC) Prot/Creat Ur 0.12 <0.15 mg/mg Result Comment: Adult Protei mely Categories: <0.15 mg/mg is considered normal to mildly increased 0.15 - 0.50 mg/mg is considered moderately increased >0.50 mg/mg is considered severely increased KDIGO. (2013). KDIGO 2012 Clinical Practice Guideline for the Evaluation and Management of Chronic Kidney Disease. Official Journal of the International Society of Nephrology, 3(1), 1-150. Performed By: #### 2890-2, U ACR #### [facility] CLIA [id number] [address] [place] [address] [place] ALBUMIN/CREATININE RATIO, URINE Collect ed: 01/03/2025 9:58 AM Status: F Source: [facility] Order Comment: Specimen Type : URINE SPECIMEN Ordering Facility: [facility] Address: [address] [place] [address] TYPE CODE TESTS RESULT OUT OF RANGE REFERENCE UNITS LAB 2161-8(LOINC) Creat Ur-mCnc 91.1 20.0-300.0 m g/dL LAB 11828-1(LOINC ) Microalbumin Ur-mCnc 21.2 mg/L LAB 9318-7(LOINC) Albumin/Creat Ur 23 <30 mg/g Result Comment: Adult Male a nd Female Nephrotic Criteria: <30 mg/g is considered normal to mildly increased 30-300 mg/g is considered moderately increased >300 mg/g is considered severely increased KDIGO. (2013). KDIGO 2012 Clinical Practice Guideline for the Evaluation and Management of Chronic Kidney Disease. Official Journal of the International Society of Nephrology, 3(1), 1-150. Performed By: #### 2890-2, U ACR #### [facility] CLIA [id number] [address] [place] [address] [place] TSH SERPL-ACNC Collected: 9:49 AM Status: F Source: [facility] Order Comment: Specimen Type : BLOOD SPECIMEN Ordering Facility: [facility] Address: [address] [place], [place] [id number] TYPE CODE TESTS RESULT OUT OF RANGE REFERENCE UNITS LAB 3016-3(LOINC) TSH SerPl-aCnc 5.900 High 0.270-4.200 mIU/L Performed By: #### 3016-3 ## ## [facility] CLIA [id number] [address] [place], [place] [id number] [place] DEPRECATED HGB A1C BLD Collected: 01/03 9:49 AM Status: F Source: [facility] Order Comment: Specimen Type : BLOOD SPECIMEN Ordering Facility: [facility] Address: [address] [place], [place] [id number] TYPE CODE TESTS RESULT OUT OF RANGE REFERENCE UNITS LAB 4548-4(LOINC) HbA1c MFr Bld 6.3 High 4.3-5.6 % Result Comment: [place] [employer] guidelines indicate that patients with HgbA1c in the range 5.7-6.4% are at increased risk for development of diabetes, and intervention by lifestyle modification may be beneficial. HgbA1c greater or equal to 6.5% is considered diagnostic of diabetes. LAB 10159-1(LOINC) Est. average glucose Bld gHb Est-mCnc 134 mg/dL Result Comment: eAG: (Estima birdie average glucose) is a calculated value from HgbA1c and is district sales representative of the average blood glucose level in the last 2-3 month period. Performed By: #### 07083-1 # ### [facility] CLIA [id number] [address] [place] [address] [place] [facility] CBC PNL BLD AUTO Collected: 5 9:49 AM Status: F Source: [facility] Order Comment: Specimen Type : BLOOD SPECIMEN Ordering Facility: [facility] Address: [address] [place] [address] TYPE CODE TESTS RESULT OUT OF RANGE REFERENCE UNITS LAB 6690-2(LOINC) WBC # Bld Auto 8.07 3.70-11.00 k/uL LAB 789-8(INC) RBC # Bld Auto 3.91 3.90-5.20 m/uL LAB 718-7(INC) Hgb Bld-mCnc 11.8 11.5-15.5 g/dL LAB 4544-3(INC) Hct VFr Bld Auto 36.4 36.0-46.0 % LAB 787-2(LOINC) MCV RBC Auto 93.1 80.0-100.0 fL LAB 785-6(LOINC) MCH RBC Qn Auto 30.2 26.0-34.0 pg LAB 786-4(LOINC) MCHC RBC Auto-mCnc 32.4 30.5-36.0 g/dL LAB 98027-6(LOINC) RDW RBC-Rto 12.5 11.5-15.0 % LAB 777-3(LOINC) Platelet # Bld Auto 308 150-400 k/uL LAB 71686-9(LOINC) PMV Bld Auto 9.3 9.0-12.7 fL LAB 771-6(LOINC) nRBC # Bld Auto <0.01 <0.01 k/uL Performed By: #### 12549-7 # ### [facility] CLIA [id number] [address] [place] [address] [place] COMP METAB 2000 PNL SERPL Collected: 9:49 AM Status: F Source: [facility] Order Comment: Specimen Type : BLOOD SPECIMEN Ordering Facility: [facility] Address: [address] [place] [address] TYPE CODE TESTS RESULT OUT OF RANGE REFERENCE UNITS LAB 2885-2(LOINC) Prot SerPl-mCnc 7.0 6.3-8.0 g/dL LAB 1751-7(LOINC) Albumin SerPl-mCnc 4.2 3.9-4.9 g/dL LAB 85385-6(LOINC) Calcium SerPl-mCnc 10.2 8.5-10.2 mg/dL LAB 1975-2(LOINC) Bilirub SerPl-mCnc 0.3 0.2-1.3 mg/dL LAB 6768-6(LOINC) ALP SerPl-cCnc 36 34-123 U/L LAB 1920-8(LOINC) AST SerPl-cCnc 14 13-35 U/L LAB 1742-6(LOINC) ALT SerPl-cCnc 14 7-38 U/L LAB 2345-7(LOINC) Glucose SerPl-mCnc 154 High 74-99 mg/dL Result Comment: The [place] [employer] Association (ADA) provides guidance for cutoff values for fasting glucose and random glucose. The ADA defines fasting as no caloric intake for at least 8 hours. Fasting plasma glucose results between 100 to 125 mg/dL indicate increased risk for diabetes (prediabetes). Fasting plasma glucose results greater than or equal to 126 mg/dL meet the criteria for diagnosis of diabetes. In the absence of unequivocal hyperglycemia, results should be confirmed by repeat testing. In a patient with classic symptoms of hyperglycemia or hyperglycemic crisis, random plasma glucose results greater than or equal to 200 mg/dL meet the criteria for diagnosis of diabetes. Reference: Standards of Medical Care in Diabetes 2016, [place] [employer]. Diabetes Care. 2016.39(Suppl 1). LAB 3094-0(LOINC) BUN SerPl-mCnc 39 High 7-21 mg/ dL LAB 2160-0(LOINC) Creat SerPl-mCnc 1.82 High 0.58-0.96 mg/dL LAB 2951-2(LOINC) Sodium SerPl-sCnc 137 136-144 mmol/L LAB 2823-3(LOINC) Potassium SerPl-sCnc 4.8 3.7-5.1 mmol/L LAB 2075-0(LOINC) Chloride SerPl-sCnc 102 98-107 mmol/L LAB 2028-9(LOINC) CO2 SerPl-sCnc 23 22-30 mmo l/L LAB 13862-8(LOINC) Anion Gap SerPl-sCnc 12 8-15 mmol/L LAB 58989-4(LOINC) Creatinine + eGFR Pnl SerPlBld 30 Low >=60 mL/min/1 .73m??? Result Comment: Estimated Gl omerular Filtration Rate (eGFR) is calculated using the 2020 CKD-EPI creatinine equation. This equation utilizes serum creatinine, sex, and age as parameters. The creatinine assay has traceable calibration to isotope dilution-mass spectrometry. Refer to KDIGO guidelines for clinical interpretation. In patients with unstable renal function, e.g. those with acute kidney injury, the eGFR may not accurately reflect actual GFR. Performed By: #### 11498-9, 2777-1 #### [facility] CLIA [id number] [address] [place] [address] [place] PHOSPHATE SERPL-MCNC Collected: 01/03/2025 9:49 AM S tatus: F Source: [facility] Order Comment: Specimen Type : BLOOD SPECIMEN Ordering Facility: [facility] Address: [address] [place] [address] TYPE CODE TESTS RESULT OUT OF RANGE REFERENCE UNITS LAB 2777-1([facility]) Phosphate SerPl-mCnc 3.4 2.7-4.8 mg/dL Performed By: #### 92774-5, 2777-1 #### [facility] CLIA [id number] [address] [place] [address] [place] CNPN Observed: 11/13/2024 12:00 AM Status: COMPLETED Source: [facility] Telephone (ENAGST) PRAVEEN PARKINSON ([id number]) 1955 F Date Time Provider Department 11/13/24 FITO KEBEDE During your visit today, we recorded the following information about you: Allergies As of Date: 11/13/2024 Noted Allergy Reaction AUGMENTIN (AMOXICILLIN-POT CLAVUL*06/01/2018 8 - GI Upset Comments: Diarrhea, vomitting LISINOPRIL 02/13/2016 3 - Cough Date Reviewed: 01/28/2024 Reviewed by: Fito Kebede, - Fully Assessed Prescriptions as of 12/07/2024 - irbesartan (AVAPRO) 150 mg tablet TAKE 1 TABLET DAILY - isosorbide mononitrate ER (IMDUR) 30 mg 24 hr tablet Take 1 tablet by mouth two times a day. - amLODIPine (NORVASC) 5 mg tablet Take 1 tablet by mouth once daily. - JANUVIA 50 mg tablet take 1 tablet daily - QNASL 80 mcg/actuation - amitriptyline (ELAVIL) 10 mg tablet Take 1 tablet by mouth daily at bedtime. - cholecalciferol (VITAMIN D-3) 50 mcg (2,000 unit) tablet Take 1 tablet by mouth once daily. - mepolizumab (NUCALA SUBCUTANEOUS) Inject subcutaneously. Inject once a month - gabapentin (NEURONTIN) 100 mg capsule Daily at bedtime - montelukast (SINGULAIR) 10 mg tablet Take 1 tablet by mouth daily at bedtime. - fluticasone-vilanterol (BREO ELLIPTA) 100-25 mcg/dose inhaler Inhale 1 Inhalation as instructed once daily. - cetirizine (ZYRTEC) 10 mg tablet Take 1 tablet by mouth once daily. - furosemide (LASIX) 40 mg tablet Take 20 mg by mouth once daily. - nebivolol (BYSTOLIC) 10 mg tablet Take 10 mg by mouth once daily. - Fenofibrate (LOFIBRA) 160 mg tablet Take 160 mg by mouth once daily. - atorvastatin (LIPITOR) 80 mg tablet Take 80 mg by mouth once daily. - nitroglycerin sublingual (NITROQUICK) 0.3 mg SL tablet Dissolve 0.3 mg under the tongue every 5 minutes as needed. - ranolazine SR (RANEXA) 1,000 mg tab ER 12 hr Take by mouth. - clopidogrel (PLAVIX) 75 mg tablet Take 1 tablet by mouth once daily. - aspirin, enteric coated (ASPIRIN, ENTERIC COATED) 81 mg EC tablet Take 1 tablet by mouth once daily. - citalopram (CELEXA) 20 mg tablet Take 1 tablet by mouth once daily. - multivitamin tablet Take 1 tablet by mouth once daily. Problem List As Of Date 11/13/2024 Noted Resolved Cellulitis and abscess of toe, unspecified [L03*04/17/2011 Obesity [E66.9] Hyperlipidemia [E78.5] Hypertension [I10] Hypoglycemia associated with diabetes (HCC) [E1* 11/29/2017 Type 2 diabetes mellitus with hyperglycemia (HC* Class 1 obesity due to excess calories without *05/31/2017 Abnormal kidney function [N28.9] 05/31/2017 CKD (chronic kidney disease) stage 3, GFR 30-59*06/03/2018 Myocardial infarction (HCC) [I21.9] 11/30/2018 Type 2 diabetes mellitus with stage 3 chronic k*06/05/2019 Controlled type 2 diabetes with neuropathy (HCC*02/10/2023 Asthma [J45.909] 03/23/2024 CVA (cerebral vascular accident) ([facility]) [I63.9] 03/23/2024 HTN (hypertension) [I10] 03/23/2024 S/P PTCA (percutaneous transluminal coronary an*03/23/2024 GERD (gastroesophageal reflux disease) [K21.9] 03/23/2024 Osteoporosis [M81.0] 03/23/2024 Chronic congestive heart failure (HCC) [I50.9] 03/23/2024 Type 2 DM with CKD stage 3 and hypertension (HC*03/23/2024 CKD stage G3b/A2, GFR 30-44 and albumin creatin*03/23/2024 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] 03/23/2024 Encounter Status:Closed by BRITTANY LIN on 12/07/24 SURGICAL PATHOLOGY REFERENCE LAB CONSULT Collected: 10/12/2024 2:40 PM Status: F Source: [facility] Order Comment: Specimen Type : FORMALIN-FIXED PARAFFIN-EMBEDDED TISSUE SPECIMEN Ordering Facility: [facility] Address: [address] [place] [address] TYPE CODE TESTS RESULT OUT OF RANGE REFERENCE UNITS PATHOLOGY [id number] CASE REPORT Result Comment: Surgical Pat hology Report Case: [id number] Authorizing Provider: Sandro Way MD Collected: 10/12/2024 02:40 PM Ordering Location: [facility] Received: 10/12/2024 02:39 PM [facility] Pathologist: Adrián Noel MD Specimen: Slide(s), 4 SLIDES [id number] PATHOLOGY [id number] FINAL DIAGNOSIS Result Comment: Skin, left d istal forearm, excision: - Nonkeratinizing squamous cell carcinoma in situ, see comment. at 1845 EDT PATHOLOGY [id number] DIAGNOSIS COMMENT Result Comment: Thank you fo r sending this case in consultation. Sections demonstrate a tumor that has full-thickness atypia of the epidermis and has a pushing border with a smooth interface extending into the dermis. The tumor cells have enlarged nuclei with fine chromatin and clear to eosinophilic cytoplasm. Numerous mitotic figures are noted. There are entrapped eccrine ducts, but the tumor has no distinct duct lumens. The tumor is associated with a vascular rich stroma. A panel of immunohistochemical stains was performed with appropriate controls at the [facility]. The tumor demonstrates immunoreactivity for AFSHAN, but this stain does not highlight duct lumens. The tumor cells are negative for CK7 and CEA. 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 No definitive invasion is seen. The squamous cell carcinoma in situ focally involves a peripheral inked margin. Thank you for sending this case in consultation. Please call the Dermatopathology Consultation Service at [phone] with questions or if additional follow-up information becomes available regarding this patient. This case was reviewed in conjunction with the Dermatopathology Fellow, Dr. Andrae Gerardo. PATHOLOGY CDX2 CLINICAL HISTORY CONSULT REQUESTED PATHOLOGY [facility] FINAL PERFORMING LAB Result Comment: Diagnostic i nterpretation performed at: [facility], [address] [place] [address] CLIA# [id number] Fisher Troll Line: Rakesh Lamas MD PATHOLOGY [id number] AP DISCLAIMER Result Comment: Laboratory D eveloped Test (LDT) Disclaimer: Performance characteristics of immunohistochemical, immunofluorescent, and chromogenic in-situ hybridization tests have been determined by the performing laboratory within [facility]'s [facility] Pathology and Laboratory Medicine Department ([facility], [facility], [facility], [facility], [facility], [facility], or [facility]) in a manner consistent with CLIA requirements. One or more of these tests may not have been cleared or approved by the FDA. [facility] is regulated under CLIA as qualified to perform high-complexity testing. These tests are used for clinical purposes. These should not be regarded as investigational or for research. Positive and negative controls stain appropriately. Performed By: #### [id number] # ### [facility] CLIA [id number] [address] [place] [address] [place] PROGRESS Observed: 08/28/2024 4:32 PM Status: COMPLETED Source: [facility] HNO ID: [id number] Author: ARYAN MOORE APRN.POSTIE Service: ? Author Type: Nurse Practitioner Type: Progress Notes Filed: 08/30/2024 17:26 Note Text: Department of Kidney Medicine Medical Specialties [facility] SERVICE DATE: 08/28/2024 SERVICE TIME: 4:33 PM I have communicated my name and active licensure. The patient's identity and physical location were verified at the time of this visit. Either the patient or their legal district sales representative has been informed of the risks and benefits of -- and alternatives to -- treatment through a remote evaluation and consents to proceed with the evaluation remotely. CHIEF COMPLAINT: CKD and HTN HPI: Ms. Parkinson is a 69 year old female who presents with CKD and HTN follow up See prev visit notes for full details. 03/23/[address] Hemphill Started on Irbesartan 150mg daily Clonidine titrated off; some worsening Alzheimer's symptoms while tapering and then resolved after 48hrs. We should consider SGLT2 inh in the future as well. Advised on PPIs>>since that time she has started Pepcid in place of prilosec 05/30/24 virtual visit with me 07/21/24 US renal artery IMPRESSION Technically difficult exam due to patient's body habitus. RIGHT RENAL Right renal artery: 0-59% stenosis. No evidence of hemodynamically significant stenosis. LEFT RENAL Left renal artery: 0-59% stenosis. No evidence of hemodynamically significant stenosis. 07/21/24 scr 1.6 hgb 11 Recent oxygen saturation test overnight and initially told she didn't past and test was repeated and she is awaiting results Fall ~ 2 weeks, sustained bruise to thigh, she believes she turned around too quick when trying to get her dog Her appetite is ok, usually eating ~ twice daily No recent nausea, diarrhea or constipation. Ongoing urinary incontinence, wearing Depend. + cough intermittently hx of asthma, non productive, usually resolves with drink of water, sometimes takes Coriciden with improvement Using CPAP nightly No chest pain>> reports she is taking Imdur 30mg BID Off Metformin, continues Mickey is scheduled for TKR on 09/19/24, daughter will be coming in town for a couple of weeks to help bp 117/54, HR 67 glucose this AM 123 wt 188# PAST MEDICAL HISTORY: PAST MEDICAL HISTORY Diagnosis Date Asthma Class 1 obesity due to excess calories without serious comorbidity with body mass index (BMI) of 33.0 to 33.9 in adult CVA (cerebral vascular accident) ([facility]) 2009 again 2013 Depression GERD (gastroesophageal reflux disease) Heart disease HTN (hypertension) Hyperlipidemia Hyperlipidemia Hypertension Hypoglycemia associated with diabetes (HCC) Myocardial infarction ([facility]) Osteoporosis S/P PTCA (percutaneous transluminal coronary angioplasty) Type 2 diabetes mellitus with hyperglycemia ([facility]) PAST SURGICAL HISTORY: PAST SURGICAL HISTORY Procedure Laterality Date SECTION HX CORONARY ARTERY BYPASS GRAFT HX 1998 2 vessels PAST SURGICAL HISTORY OF Right 1984 adrenalectomy PAST SURGICAL HISTORY OF straighten Nasal Septum TONSILLECTOMY HX FAMILY HISTORY: FAMILY HISTORY Adopted: Yes Problem Relation Age of Onset other (Unknown) Other SOCIAL HISTORY: Social History Tobacco Use Smoking status: Former Smokeless tobacco: Never Substance Use Topics Alcohol use: No Drug use: No MEDICATIONS: irbesartan (AVAPRO) 150 mg tablet Take 1 tablet by mouth once daily. JANUVIA 50 mg tablet take 1 tablet daily QNASL 80 mcg/actuation amitriptyline (ELAVIL) 10 mg tablet Take 1 tablet by mouth daily at bedtime. (Patient taking differently: Take 10 mg by mouth daily at bedtime. Take 2 tablets by mouth daily at bedtime) cholecalciferol (VITAMIN D-3) 50 mcg (2,000 unit) tablet Take 1 tablet by mouth once daily. mepolizumab (NUCALA SUBCUTANEOUS) Inject subcutaneously. Inject once a month gabapentin (NEURONTIN) 100 mg capsule Daily at bedtime montelukast (SINGULAIR) 10 mg tablet Take 1 tablet by mouth daily at bedtime. fluticasone-vilanterol (BREO ELLIPTA) 100-25 mcg/dose inhaler Inhale 1 Inhalation as instructed once daily. cetirizine (ZYRTEC) 10 mg tablet Take 1 tablet by mouth once daily. amLODIPine (NORVASC) 5 mg tablet furosemide (LASIX) 40 mg tablet Take 20 mg by mouth once daily. nebivolol (BYSTOLIC) 10 mg tablet Take 10 mg by mouth once daily. Fenofibrate (LOFIBRA) 160 mg tablet Take 160 mg by mouth once daily. atorvastatin (LIPITOR) 80 mg tablet Take 80 mg by mouth once daily. nitroglycerin sublingual (NITROQUICK) 0.3 mg SL tablet Dissolve 0.3 mg under the tongue every 5 minutes as needed. ranolazine SR (RANEXA) 1,000 mg tab ER 12 hr Take by mouth. clopidogrel (PLAVIX) 75 mg tablet Take 1 tablet by mouth once daily. isosorbide mononitrate ER (IMDUR) 60 mg 24 hr tablet Take 1 tablet by mouth once daily. aspirin, enteric coated (ASPIRIN, ENTERIC COATED) 81 mg EC tablet Take 1 tablet by mouth once daily. citalopram (CELEXA) 20 mg tablet Take 1 tablet by mouth once daily. multivitamin tablet Take 1 tablet by mouth once daily. ALLERGIES: ALLERGIES Allergen Reactions Augmentin [Amoxicil* GI Upset Diarrhea, vomitting Lisinopril Cough PHYSICAL EXAM: There were no vitals taken for this visit. BP - standardized method Pulse 1 2 3 Average BP cuff location BP cuff size Last 3 Encounter BP Readings: Date: BP: 01/28/2024 100/74 02/10/2023 119/70 11/24/2021 136/65 Constitutional: No acute distress, Responsive, Normal habitus, and Well-nourished Eyes: Conjunctiva clear and sclerae anicteric Ear, Nose, and Throat: Hearing normal, Lips normal, and Dentition normal Psychiatric: Alert and oriented x self, place, time, and setting Normal mood/affect DATA: Diagnostic tests reviewed for today's visit: Blood work, imaging studies, and office notes were reviewed in epic Sodium (mmol/L) Date Value 07/21/2024 138 01/28/2024 135 (L) 02/10/2023 137 Creatinine (mg/dL) Date Value 07/21/2024 1.77 (H) 01/28/2024 1.68 (H) 02/10/2023 1.42 (H) Vitamin D 25 Hydroxy (ng/mL) Date Value 07/21/2024 29.1 (L) PTH, Intact (pg/mL) Date Value 07/21/2024 75 (H) Potassium (mmol/L) Date Value 07/21/2024 4.7 01/28/2024 5.0 02/10/2023 4.7 Phosphorus (mg/dL) Date Value 07/21/2024 3.2 Calcium, Total (mg/dL) Date Value 07/21/2024 10.7 (H) 01/28/2024 10.0 02/10/2023 10.6 (H) Hemoglobin (g/dL) Date Value 07/21/2024 11.0 (L) 03/03/2014 14.1 03/02/2014 12.5 Hemoglobin A1C (%) Date Value 07/21/2024 5.8 (H) 01/28/2024 5.6 Hemoglobin A1C (POCT) (%) Date Value 02/10/2023 6.3 Albumin/Creat Ratio (mg/g) Date Value 01/28/2024 292 (H) 11/10/2021 12 No results found for: "PCRAT" Latest Ref Rng AND Units 07/21/2024 01/28/2024 02/10/2023 BMP Glucose 74 - 99 mg/dL 107 94 118 BUN 7 - 21 mg/dL 32 29 17 Creatinine 0.58 - 0.96 mg/dL 1.77 1.68 1.42 Sodium 136 - 144 mmol/L 138 135 137 Potassium 3.7 - 5.1 mmol/L 4.7 5.0 4.7 Chloride 98 - 107 mmol/L 102 101 98 CO2 22 - 30 mmol/L 23 23 26 Anion Gap 8 - 15 mmol/L 13 11 13 Calcium 8.5 - 10.2 mg/dL 10.7 10.0 10.6 EGFR >=60 mL/min/1.73m? 31 33 41 No results found for: "COLOR", "CLARITY", "UGLUC", "UBILI", "UKET", "SPGR", "UHB", "UPH", "UPROT", "UROBILINOGEN", "NITRITES", "LEUKEST", "UWBC", "URBC", "UBACTERIA", "MIXCAST" ASSESSMENT: 69 year old female who presents with CKD IIIb likely d/t to DM, HTN and severe vasculopathy. ? 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 + albuminuria; ARB added in Mar 2024 mild rise in scr as expected HTN-home bp controlled; monitored by [facility] nurse Hx of CVA and known CAD--NH, s/p PTCA Hx of GERD; switched from PPI to Pepcid and symptoms controlled thus far [id number] oral rx, A1c 5.8 New diagnosis of Alzheimer's, is primary Caregiver PLAN: - Labs in late October or early November @ [facility]-renal panel, CBC, urine Prot/creat ratio, alb/creat ratio Continue present mgmt Avoid NSAIDS and iodinated contrast exposure RTC 3 months, virtual visit would be best Parts of A/P may have been copied from prior entry and amended as needed. It reflects full evaluations and pathophysiology processes involved. Visit CPLX Inherent EANDM Associated with [facility] ([id number]) SIGNATURE: Aryan Moore APRN.CNP PATIENT NAME: Praveen Parkinson DATE: August 28, 2024 TIME: 4:33 PM CC: PRIMARY CARE PHYSICIAN: Philip Ureña MD 29 minutes PROGRESS Observed: 08/02/2024 1:00 PM Status: COMPLETED Source: [facility] HNO ID: [id number] Author: MARCELA, FITO, DO Service: ? Author Type: Physician Type: Progress Notes Filed: 08/02/2024 18:23 Note Text: Endocrinology Virtual Visit This is a virtual visit using [facility] Zoom Video Visit. It required patient-provider interaction for the medical decision making as documented below. I have communicated my name and active licensure. The patient's identity and physical location were verified at the time of this visit. Either the patient or their legal district sales representative has been informed of the risks and benefits of -- and alternatives to -- treatment through a remote evaluation and consents to proceed with the evaluation remotely. Praveen Parkinson is a 69 year old year old female seen for TYPE 2 DIABETES Approximate date of diagnosis: 2009. Pt also has hx of Obesity, hypertension, hyperlipidemia, 2 vessel CABG 1993, NH 2018, Stroke in 2009, TIA 2013, CKD stage 3. PCP: Dr Philip Ureña, cardio Dr. Ankit Joiner at [facility], neuro Dr. Yasir Manriquez in [place]. 03/21/14 visit: Initial visit: Patient is here at the request of PCP for further evaluation of uncontrolled type 2 diabetes. Pt lives in [facility]. On metformin only 10/21/15: lost to follow-up since 12/28. Pt is currently taking metformin 1,000 mg bid. Added Januvia 100 mg daily. 03/05/16 visit Continued Januvia and metformin. 09/07/16: Continued Januvia and metformin. 02/22/17:The patient did not show for this appointment. 05/31/17:HbA1c 5.8% GFR 42 = stage 3 CKD, monitor - stay on same DM meds for now. Elevated microalbumin - pt on ARB. 11/29/17: HbA1c 6.2% -- Continue metformin and Januvia. 06/01/18: HbA1c 6.1%. 06/03/2018:Cr higher than last year (GFR 36). Change Januvia to renal dose 50 mg daily. 11/30/18: HbA1c 5.3%. Had NH SeptemberSeptember 16. States diagnosed with severe HTN, CHF, now on Lasix. Pt is currently taking metformin 1,000 mg bid and Januvia 50 mg daily. Labs done at [facility] 11/28/18: Cr 1.3 (GFR 41), chol 127, LDL 43, HDL 27, TG 285. Reviewed more cautious use of metformin and DPP4 inhibitor in the setting of CKD and CHF. Decrease metformin to 500 mg bid. Continue Januvia 50 mg daily. 06/05/19: HbA1c 5.7%. Pt here with today. Pt feeling sluggish upon arrival to office today -- delayed eating lunch due to long drive. Fingerstick glucose 59 -- treated with juice. 12/05/19: Telemedicine Visit - Distance [facility] Virtual Visit Note due to COVID-19 PANDEMIC. Current medication regimen: Pt is currently taking metformin 500 mg bid and Januvia 50 mg daily. . 06/04/20 office visit: HbA1c 5.9% 05/21/20: Cr 1.4 (GFR 38), TSH 5.07 (0.34-5.6), chol 144, TG 258 Had MRI of foot to r/o stress fracture - has follow-up. States no evidence of osteomyelitis. Noting LE swelling. States she is getting diabetic shoes. States had cataract surgery x 2 since last visit. States in October she was off balance and fell -diagnosed with neuropathy. Now using a cane. 11/30/20: HbA1c 6.6% 12/10/20 visit: Telemedicine Visit - Distance Health Virtual Visit Note due to COVID-19 PANDEMIC using [facility] [employer] [facility]. Pt and present for visit. Taking metformin 500 mg bid and Januvia 50 mg dialy States lost balance while working outdoors and fell and hit head on the grass. Checking glucose once daily -- this AM 136, usually 120-130's . Highest was 162. 06/13/21 visit: Telemedicine Visit - Distance Health Virtual Visit Note due to COVID-19 PANDEMIC Pt and present for appt. Current medication regimen: metformin 500 mg bid, Januvia 50 mg daily. 06/04/21 labs from outside lab in [place]: Cr 1.70 (GFR 30), glucose 107, TSH 3.97 (0.35-3.74), free T4 0.96, liver function ok, normal Na/K, HbA1c 6.2% States was off balance and fell earlier this week and bumped her head on the cabinet. States no injury/BROWN and was feeling fine so she didn't seek medical attention. Has carpal tunnel surgery scheduled next week. 11/10/21: Labs done at outside lab fax reviewed: HbA1c 6.8%,Cr 1.63 (GFR 32), TSH 3.85, free T4 0.9, normal urine microalbumin 11/24/21 office visit: Current medication regimen: metformin 500 mg bid, Januvia 50 mg daily. Had meter replaced since was malfunctioning and reading falsely low. Handwritten glucose log reviewed. Testing daily in AM ranging 105-140's with some occasional higher readings in 190's to low 200's States has foot stress fracture left foot and is wearing special shoe. Follows with stereotype finisher monthly. States she is due for new diabetic shoes. Mentions that she has osteoporosis and not currently on meds for this but that PCP had her on a med in the past. Pt states she will see PCP to discuss. Discussed that I don't do osteoporosis management in my endocrine practice. If desired, she could see [facility] osteoporosis clinic (dept of orthopedics) or establish with Dr. Tomlinson or Dr. Bowman of our endocrine group. 05/11/22: Cr 1.66 (GFR 34), BUN 32 05/18/22: Telemedicine Visit - Distance Health Virtual Visit Note Recent labs reviewed with pt and her . Current medication: metformin 500 mg bid and renal dose Januvia 50 mg daily. Since last visit fell and broke left arm - tripped over a puppy. States not a candidate for surgery due to multiple medical problems. 02/10/23 office visit: HbA1c 6.3%. Pt presents with her today. No recent labs to review. Didn't get them done as ordered before appt Current medication: metformin 500 mg bid and renal dose Januvia 50 mg daily. Glucose log reviewed - testing glucoses daily in AM ranging 116-154 Is seeing stereotype finisher for toenail trimming. She has 2 pair of diabetic shoes. Notes occasional tingling in feet. States she saw PCP and was told no new med needed for bone health at this time. Last 2 Encounter Wt Readings: Date: Wt: 02/10/2023 83.5 kg (184 lb) 11/24/2021 83.3 kg (183 lb 11.2 oz) 07/26/23: Labs at outside lab: HbA1c 5.8%, Cr 1.63 (GFR 31), normal LFTs 08/03/23 visit: Telemedicine Visit - Distance Health Virtual Visit Note Recent labs reviewed with pt and her . Current medication: metformin 500 mg bid and renal dose Januvia 50 mg daily. Testing glucose in AM a few times per week-- today 126, previously 109 , highest was 140's. No hypoglycemia. Getting physical therapy for balance training. States had recent eye exam and states mild retinopathy was found. I do not have the report. Continue to monitor on metformin 500 mg bid and renal dose Januvia 50 mg daily. If GFR falls below 30 would need to stop metformin. 01/28/24 OFFICE VISIT: Pt presents with her today. Labs at outside lab: 01/24/24: HbA1c 5.6%, urine test not what I ordered urine creatinine 126.51, UA CR 31. Lab didn't do CMP, TSH, free T4 - or if they did I didn't get the results. Nurse and tried to call lab but unable to reach. Current medication: metformin 500 mg bid and renal dose Januvia 50 mg daily. Testing glucose in AM a few times per week, ranging 111-131. I reviewed handwritten glucose log. 08/02/24: Telemedicine Visit - Distance Health Virtual Visit (note that chart was marked no-show by mistake and staff unable to correct. Ended up doing visit using spotflux video due to tech glitch) Pt and her present for appt. gave most of the history. Pt with worsening memory, now on med for Alzheimer's. states trying to keep her home with him as long as possible but may need to consider a facility for long-term care in the future. Recent labs reviewed. 07/21/24: HbA1c 5.8% Current medication: Januvia 50 mg daily. Metformin was stopped at some point since last appt. Reports glucoses are well controlled with just Januvia now. Glucoses are tested in AM, recently ranging 109-131. Since last appt pt established with specialty food products supervisor Dr. Hemphill and was put on irbesartan. Recently had COVID and was on ABX and inhaler per weatherization and housing inspector. Is on a calcium supplement 650 mg for bone health. Last 2 Encounter Wt Readings: Date: Wt: 01/28/2024 83.2 kg (183 lb 6.4 oz) 02/10/2023 83.5 kg (184 lb) THYROID FUNCTION ABNORMALITY 05/11/22 outside lab: TSH 6.79 (0.35-3.74), free T4 0.93 (0.76-1.46) Notes mildly increased fatigue. 02/10/23: [facility] lab: TSH 3.17 ( 0.27-4.2), free T4 1.1 (0.9-1.7), TPO antibody <3.0 (<5.6) 07/26/23: outside lab: TSH 5.17 (9.35-3.74), free T4 0.85 (0.76-1.46) 07/21/24: TSH 2.88, free T4 1.2 -- NORMAL HISTORY REVIEWED (electronic chart updated): PAST MEDICAL HISTORY Diagnosis Date Asthma Class 1 obesity due to excess calories without serious comorbidity with body mass index (BMI) of 33.0 to 33.9 in adult CVA (cerebral vascular accident) (HCC) 2009 again 2013 Depression GERD (gastroesophageal reflux disease) Heart disease HTN (hypertension) Hyperlipidemia Hyperlipidemia Hypertension Hypoglycemia associated with diabetes (HCC) Myocardial infarction (HCC) Osteoporosis S/P PTCA (percutaneous transluminal coronary angioplasty) Type 2 diabetes mellitus with hyperglycemia (HCC) PAST SURGICAL HISTORY Procedure Laterality Date SECTION HX CORONARY ARTERY BYPASS GRAFT HX 1998 2 vessels PAST SURGICAL HISTORY OF Right 1984 adrenalectomy PAST SURGICAL HISTORY OF straighten Nasal Septum TONSILLECTOMY HX FAMILY HISTORY Adopted: Yes Problem Relation Age of Onset other (Unknown) Other Social History Tobacco Use Smoking status: Former Smokeless tobacco: Never Substance Use Topics Alcohol use: No Drug use: No Current Outpatient Medications Medication Sig irbesartan (AVAPRO) 150 mg tablet Take 1 tablet by mouth once daily. JANUVIA 50 mg tablet take 1 tablet daily QNASL 80 mcg/actuation amitriptyline (ELAVIL) 10 mg tablet Take 1 tablet by mouth daily at bedtime. (Patient taking differently: Take 10 mg by mouth daily at bedtime. Take 2 tablets by mouth daily at bedtime) cholecalciferol (VITAMIN D-3) 50 mcg (2,000 unit) tablet Take 1 tablet by mouth once daily. mepolizumab (NUCALA SUBCUTANEOUS) Inject subcutaneously. Inject once a month gabapentin (NEURONTIN) 100 mg capsule Daily at bedtime montelukast (SINGULAIR) 10 mg tablet Take 1 tablet by mouth daily at bedtime. fluticasone-vilanterol (BREO ELLIPTA) 100-25 mcg/dose inhaler Inhale 1 Inhalation as instructed once daily. cetirizine (ZYRTEC) 10 mg tablet Take 1 tablet by mouth once daily. amLODIPine (NORVASC) 5 mg tablet furosemide (LASIX) 40 mg tablet Take 20 mg by mouth once daily. nebivolol (BYSTOLIC) 10 mg tablet Take 10 mg by mouth once daily. Fenofibrate (LOFIBRA) 160 mg tablet Take 160 mg by mouth once daily. atorvastatin (LIPITOR) 80 mg tablet Take 80 mg by mouth once daily. nitroglycerin sublingual (NITROQUICK) 0.3 mg SL tablet Dissolve 0.3 mg under the tongue every 5 minutes as needed. ranolazine SR (RANEXA) 1,000 mg tab ER 12 hr Take by mouth. clopidogrel (PLAVIX) 75 mg tablet Take 1 tablet by mouth once daily. isosorbide mononitrate ER (IMDUR) 60 mg 24 hr tablet Take 1 tablet by mouth once daily. aspirin, enteric coated (ASPIRIN, ENTERIC COATED) 81 mg EC tablet Take 1 tablet by mouth once daily. citalopram (CELEXA) 20 mg tablet Take 1 tablet by mouth once daily. multivitamin tablet Take 1 tablet by mouth once daily. No current facility-administered medications for this visit. ALLERGIES Allergen Reactions Augmentin [Amoxicil* GI Upset Diarrhea, vomitting Lisinopril Cough Exam performed via video enabled technology. Constitutional: Pt is well-developed, well-nourished, and in no distress. HEENT: Normocephalic and atraumatic. Eyes: Conjunctiva appear normal Hearing: Is grossly intact. Thyroid: appears symmetric and not enlarged. Pulmonary/Chest: Effort normal. Psychiatric: Mood and affect at baseline Neurological: She is alert and oriented to person, place, and time. Skin: no facial lesions noted. Latest Ref Rn 07/21/2024 WBC 3.70 - 11.00 k/uL 9.35 RBC 3.90 - 5.20 m/uL 3.63 (L) Hemoglobin 11.5 - 15.5 g/dL 11.0 (L) Hematocrit 36.0 - 46.0 % 33.3 (L) MCV 80.0 - 100.0 fL 91.7 MCH 26.0 - 34.0 pg 30.3 MCHC 30.5 - 36.0 g/dL 33.0 RDW-CV 11.5 - 15.0 % 13.3 Platelet Count 150 - 400 k/uL 353 MPV 9.0 - 12.7 fL 9.2 Neut% % 66.8 Abs Neut (ANC) 1.45 - 7.50 k/uL 6.24 Lymph% % 21.1 Abs Lymph 1.00 - 4.00 k/uL 1.97 [place]% % 10.7 Abs [place] <0.87 k/uL 1.00 (H) Eosin% % 0.4 Abs Eosin <0.46 k/uL 0.04 Baso% % 0.5 Abs Baso <0.11 k/uL 0.05 Immature Gran % % 0.5 IMMATURE GRANS (ABS) <0.10 k/uL 0.05 NRBC /100 WBC 0.0 Absolute nRBC <0.01 k/uL <0.01 DTYPE Auto Protein, Total 6.3 - 8.0 g/dL 7.2 Albumin 3.9 - 4.9 g/dL 4.5 Calcium 8.5 - 10.2 mg/dL 10.7 (H) Bilirubin, Total 0.2 - 1.3 mg/dL 0.5 Alkaline Phosphatase 34 - 123 U/L 36 AST 13 - 35 U/L 18 ALT 7 - 38 U/L 15 Glucose 74 - 99 mg/dL 107 (H) BUN 7 - 21 mg/dL 32 (H) Creatinine 0.58 - 0.96 mg/dL 1.77 (H) Sodium 136 - 144 mmol/L 138 Potassium 3.7 - 5.1 mmol/L 4.7 Chloride 98 - 107 mmol/L 102 CO2 22 - 30 mmol/L 23 Anion Gap 8 - 15 mmol/L 13 eGFR >=60 mL/min/1.73m? 31 (L) Hemoglobin A1C 4.3 - 5.6 % 5.8 (H) Estimated Average Glucose mg/dL 120 TSH 0.270 - 4.200 mIU/L 2.880 Free T4 0.9 - 1.7 ng/dL 1.2 PTH, Intact 15 - 65 pg/mL 75 (H) Vitamin D 25 Hydroxy 31.0 - 80.0 ng/mL 29.1 (L) Magnesium 1.7 - 2.3 mg/dL 2.0 Phosphorus 2.7 - 4.8 mg/dL 3.2 ASSESSMENT AND PLAN: 1. Type 2 diabetes mellitus with stage 3b chronic kidney disease, without long-term current use of insulin (HCC) - ICD9: 250.40, 585.3, ICD10: E11.22, N18.32 (primary diagnosis) HbA1c is 5.8% with multiple co-morbidities including CHF, neuropathy, nephropathy, and dementia. Glucoses are currently well controlled on renal dose Januvia 50 mg daily and is no longer on metformin. Continue Januvia. Now following with specialty food products supervisor - GFR 31. Nephro note mentions possible addition of SLGT-2 inhibitor in the future for CKD. I am ok with this and nephrology can prescribe if needed for renal indication. This likely won't affect glucose control at such a low GFR. - HEMOGLOBIN A1C - COMPREHENSIVE METABOLIC PANEL - THYROID STIMULATING HORMONE 2. Diabetic polyneuropathy associated with type 2 diabetes mellitus (HCC) - ICD9: 250.60, 357.2, ICD10: E11.42 Stable 3. Cognitive impairment - ICD9: 294.9, ICD10: R41.89 Declining memory and is doing all of her care at this time. Schedule follow-up in 6 months (virtual visit) with labs done before visit if pt is still living at home at that time. If pt moves into a nursing facility, then the staff there can monitor. Fito Kebede DO [facility] Observed: 08/02/2024 12:00 AM Status: COMPLETED Source: [facility] Telephone (ENAGST) PRAVEEN PARKINSON ([id number]) 1955 F Date Time Provider Department 08/02/24 FITO KEBEDE During your visit today, we recorded the following information about you: Fito Kebede DO 08/02/2024 6:24 PM Signed Please schedule virtual visit in 6 months for type 2 DM. I put in future lab orders to get done before appt. Fito Kebede DO Declan, Kim Villeda 08/03/2024 10:59 AM Signed Calling to schedule ov Schedule for 01 24 2025 as virtual --is this acceptable? Gave them the help My Chart line as they had trouble last time Kim Villeda Declan August 03, 2024 10:59 AM Fito Kebede DO 08/04/2024 7:52 AM Signed Yes, ok Fito Kebede DO Allergies As of Date: 08/02/2024 Noted Allergy Reaction AUGMENTIN (AMOXICILLIN-POT CLAVUL*06/01/2018 8 - GI Upset Comments: Diarrhea, vomitting LISINOPRIL 02/13/2016 3 - Cough Date Reviewed: 01/28/2024 Reviewed by: Fito Kebede DO - Fully Assessed Reason for Visit: Appointment [186] Prescriptions as of 08/14/2024 - irbesartan (AVAPRO) 150 mg tablet Take 1 tablet by mouth once daily. - JANUVIA 50 mg tablet take 1 tablet daily - QNASL 80 mcg/actuation - amitriptyline (ELAVIL) 10 mg tablet Take 1 tablet by mouth daily at bedtime. - cholecalciferol (VITAMIN D-3) 50 mcg (2,000 unit) tablet Take 1 tablet by mouth once daily. - mepolizumab (NUCALA SUBCUTANEOUS) Inject subcutaneously. Inject once a month - gabapentin (NEURONTIN) 100 mg capsule Daily at bedtime - montelukast (SINGULAIR) 10 mg tablet Take 1 tablet by mouth daily at bedtime. - fluticasone-vilanterol (BREO ELLIPTA) 100-25 mcg/dose inhaler Inhale 1 Inhalation as instructed once daily. - cetirizine (ZYRTEC) 10 mg tablet Take 1 tablet by mouth once daily. - amLODIPine (NORVASC) 5 mg tablet - furosemide (LASIX) 40 mg tablet Take 20 mg by mouth once daily. - nebivolol (BYSTOLIC) 10 mg tablet Take 10 mg by mouth once daily. - Fenofibrate (LOFIBRA) 160 mg tablet Take 160 mg by mouth once daily. - atorvastatin (LIPITOR) 80 mg tablet Take 80 mg by mouth once daily. - nitroglycerin sublingual (NITROQUICK) 0.3 mg SL tablet Dissolve 0.3 mg under the tongue every 5 minutes as needed. - ranolazine SR (RANEXA) 1,000 mg tab ER 12 hr Take by mouth. - clopidogrel (PLAVIX) 75 mg tablet Take 1 tablet by mouth once daily. - isosorbide mononitrate ER (IMDUR) 60 mg 24 hr tablet Take 1 tablet by mouth once daily. - aspirin, enteric coated (ASPIRIN, ENTERIC COATED) 81 mg EC tablet Take 1 tablet by mouth once daily. - citalopram (CELEXA) 20 mg tablet Take 1 tablet by mouth once daily. - multivitamin tablet Take 1 tablet by mouth once daily. Problem List As Of Date 08/02/2024 Noted Resolved Cellulitis and abscess of toe, unspecified [L03*04/17/2011 Obesity [E66.9] Hyperlipidemia [E78.5] Hypertension [I10] Hypoglycemia associated with diabetes (HCC) [E1* 11/29/2017 Type 2 diabetes mellitus with hyperglycemia (HC* Class 1 obesity due to excess calories without *05/31/2017 Abnormal kidney function [N28.9] 05/31/2017 CKD (chronic kidney disease) stage 3, GFR 30-59*06/03/2018 Myocardial infarction (HCC) [I21.9] 11/30/2018 Type 2 diabetes mellitus with stage 3 chronic k*06/05/2019 Controlled type 2 diabetes with neuropathy (HCC*02/10/2023 Asthma [J45.909] 03/23/2024 CVA (cerebral vascular accident) (HCC) [I63.9] 03/23/2024 HTN (hypertension) [I10] 03/23/2024 S/P PTCA (percutaneous transluminal coronary an*03/23/2024 GERD (gastroesophageal reflux disease) [K21.9] 03/23/2024 Osteoporosis [M81.0] 03/23/2024 Chronic congestive heart failure (HCC) [I50.9] 03/23/2024 Type 2 DM with CKD stage 3 and hypertension (HC*03/23/2024 CKD stage G3b/A2, GFR 30-44 and albumin creatin*03/23/2024 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] 03/23/2024 Encounter Status:Closed by FITO KEBEDE on 08/14/24 MANDYN Observed: 07/26/2024 12:00 AM Status: COMPLETED Source: [facility] Telephone (ENPictrition App) PRAVEEN PARKINSON ([id number]) 1955 F Date Time Provider Department 07/26/24 FITO KEBEDESEBASTIAN During your visit today, we recorded the following information about you: MerryNatan 07/26/2024 4:53 PM Signed ----- Message from [employer] sent at 07/26/2024 11:39 AM EST ----- Regarding: [facility] Patient: Praveen Parkinson Date of : 1955 Primary Care Provider: Philip Ureña MD Patient has been identified by name and Date of (Y/N): y Patient: Praveen Parkinson Date of : 1955 Provider for this encounter: Philip Ureña MD Reason for the call/escalation: Patient's Kamran called to see if Dr. Kebede got the results to the labs that the patient did at the [facility]. He would like a call back to get confirmation Was Patient Referred to [facility]/Seek Emergency Treatment (Y/N): n Did Patient Agree (Y/N): n/a Was An Attempt Made To Transfer The Patient To The Office (Y/N): n Were You Able To Reach Someone At The Office (Y/N): n/a If Yes - Patient Was Transferred To (Caregivers Name): n/a If No - Which [facility] [employer] Lineworker Did You Speak With Regarding This Patient: n/a Was an appointment scheduled (Y/N): n Reason patient was requesting visit (RFV/signs and symptoms/diagnosis) : n Person calling if other than patient: Kamran Return call to if other than patient: Kamran Best contact number: [phone] Thank you, Yulisa Ely July 26, 2024 11:39 AM Natan Freitas 07/26/2024 4:54 PM Signed Please see message below and advise. Natan Freitas July 26, 2024 4:53 PM Niya Molina LPN 07/27/2024 11:18 AM Signed Called and spoke with the patient's Kamran and verified with him that we have received the labs in the system.He verbalized understanding. Niya Moilna LPN July 27, 2024 11:18 AM Allergies As of Date: 07/26/2024 Noted Allergy Reaction AUGMENTIN (AMOXICILLIN-POT CLAVUL*06/01/2018 8 - GI Upset Comments: Diarrhea, vomitting LISINOPRIL 02/13/2016 3 - Cough Date Reviewed: 01/28/2024 Reviewed by: Fito Kebede DO - Fully Assessed Reason for Visit: Patient Question [7227] Prescriptions as of 07/27/2024 - irbesartan (AVAPRO) 150 mg tablet Take 1 tablet by mouth once daily. - JANUVIA 50 mg tablet take 1 tablet daily - QNASL 80 mcg/actuation - amitriptyline (ELAVIL) 10 mg tablet Take 1 tablet by mouth daily at bedtime. - cholecalciferol (VITAMIN D-3) 50 mcg (2,000 unit) tablet Take 1 tablet by mouth once daily. - mepolizumab (NUCALA SUBCUTANEOUS) Inject subcutaneously. Inject once a month - gabapentin (NEURONTIN) 100 mg capsule Daily at bedtime - montelukast (SINGULAIR) 10 mg tablet Take 1 tablet by mouth daily at bedtime. - fluticasone-vilanterol (BREO ELLIPTA) 100-25 mcg/dose inhaler Inhale 1 Inhalation as instructed once daily. - cetirizine (ZYRTEC) 10 mg tablet Take 1 tablet by mouth once daily. - amLODIPine (NORVASC) 5 mg tablet - furosemide (LASIX) 40 mg tablet Take 20 mg by mouth once daily. - nebivolol (BYSTOLIC) 10 mg tablet Take 10 mg by mouth once daily. - Fenofibrate (LOFIBRA) 160 mg tablet Take 160 mg by mouth once daily. - atorvastatin (LIPITOR) 80 mg tablet Take 80 mg by mouth once daily. - nitroglycerin sublingual (NITROQUICK) 0.3 mg SL tablet Dissolve 0.3 mg under the tongue every 5 minutes as needed. - ranolazine SR (RANEXA) 1,000 mg tab ER 12 hr Take by mouth. - clopidogrel (PLAVIX) 75 mg tablet Take 1 tablet by mouth once daily. - isosorbide mononitrate ER (IMDUR) 60 mg 24 hr tablet Take 1 tablet by mouth once daily. - aspirin, enteric coated (ASPIRIN, ENTERIC COATED) 81 mg EC tablet Take 1 tablet by mouth once daily. - citalopram (CELEXA) 20 mg tablet Take 1 tablet by mouth once daily. - multivitamin tablet Take 1 tablet by mouth once daily. Problem List As Of Date 07/26/2024 Noted Resolved Cellulitis and abscess of toe, unspecified [L03*04/17/2011 Obesity [E66.9] Hyperlipidemia [E78.5] Hypertension [I10] Hypoglycemia associated with diabetes (HCC) [E1* 11/29/2017 Type 2 diabetes mellitus with hyperglycemia (HC* Class 1 obesity due to excess calories without *05/31/2017 Abnormal kidney function [N28.9] 05/31/2017 CKD (chronic kidney disease) stage 3, GFR 30-59*06/03/2018 Myocardial infarction (HCC) [I21.9] 11/30/2018 Type 2 diabetes mellitus with stage 3 chronic k*06/05/2019 Controlled type 2 diabetes with neuropathy (HCC*02/10/2023 Asthma [J45.909] 03/23/2024 CVA (cerebral vascular accident) (HCC) [I63.9] 03/23/2024 HTN (hypertension) [I10] 03/23/2024 S/P PTCA (percutaneous transluminal coronary an*03/23/2024 GERD (gastroesophageal reflux disease) [K21.9] 03/23/2024 Osteoporosis [M81.0] 03/23/2024 Chronic congestive heart failure (HCC) [I50.9] 03/23/2024 Type 2 DM with CKD stage 3 and hypertension (HC*03/23/2024 CKD stage G3b/A2, GFR 30-44 and albumin creatin*03/23/2024 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] 03/23/2024 Encounter Status:Closed by NATAN FREITAS on 07/26/24 DEPRECATED HGB A1C BLD Collected: 07/21 11:06 AM Status: F Source: [facility] Order Comment: Specimen Type : BLOOD SPECIMEN Ordering Facility: [facility] Address: [address] [place] [address] TYPE CODE TESTS RESULT OUT OF RANGE REFERENCE UNITS LAB 4548-4(LOINC) HbA1c MFr Bld 5.8 High 4.3-5.6 % Result Comment: [place] [employer] guidelines indicate that patients with HgbA1c in the range 5.7-6.4% are at increased risk for development of diabetes, and intervention by lifestyle modification may be beneficial. HgbA1c greater or equal to 6.5% is considered diagnostic of diabetes. LAB 97249-5(LOINC) Est. average glucose Bld gHb Est-mCnc 120 mg/dL Result Comment: eAG: (Estima birdie average glucose) is a calculated value from HgbA1c and is district sales representative of the average blood glucose level in the last 2-3 month period. Performed By: #### 24596-1 # ### [facility] CLIA [id number] [address] [place], [place] [address]K [address] [place] 25(OH)D3 SERPL-MCNC Collected: 07/21/20 11:06 AM Status: F Source: [facility] Order Comment: Specimen Type : BLOOD SPECIMEN Ordering Facility: [facility] Address: [address] [place] [address] TYPE CODE TESTS RESULT OUT OF RANGE REFERENCE UNITS LAB 1989-3(LOINC) 25(OH)D3 SerPl-mCnc 29.1 Low 31.0-80.0 ng/mL Result Comment: Classificati on of 25 OH Vitamin D status: Deficiency/Insufficiency: < or = 30 ng/ml. Sufficiency/Optimal Levels: 31-80 ng/mL Toxicity: > 100 ng/mL. Test performed by chemiluminescent immunoassay. Performed By: #### 1989-3 ## ## [facility] CLIA [id number] [address] [place], [place] [address]K [address] STATES OF [facility] PHOSPHATE SERPL-MCNC Collected: 11:06 AM Status: F Source: [facility] Order Comment: Specimen Type : BLOOD SPECIMEN Ordering Facility: [facility] Address: [address] [place] [address] TYPE CODE TESTS RESULT OUT OF RANGE REFERENCE UNITS LAB 2777-1([facility]) Phosphate SerPl-mCnc 3.2 2.7-4.8 mg/dL Performed By: #### 2777-1 ## ## [facility] CLIA [id number] [address] [place] [address] [place] COMP METAB 2000 PNL SERPL Collected: 11:06 AM Status: F Source: [facility] Order Comment: Specimen Type : BLOOD SPECIMEN Ordering Facility: [facility] Address: [address] [place] [address] TYPE CODE TESTS RESULT OUT OF RANGE REFERENCE UNITS LAB 2885-2(LOINC) Prot SerPl-mCnc 7.2 6.3-8.0 g/dL LAB 1751-7(LOINC) Albumin SerPl-mCnc 4.5 3.9-4.9 g/dL LAB 48060-7(LOINC) Calcium SerPl-mCnc 10.7 High 8.5-10.2 mg/dL LAB 1975-2(LOINC) Bilirub SerPl-mCnc 0.5 0.2-1.3 mg/dL LAB 6768-6(LOINC) ALP SerPl-cCnc 36 34-123 U/L LAB 1920-8(LOINC) AST SerPl-cCnc 18 13-35 U/L LAB 1742-6(LOINC) ALT SerPl-cCnc 15 7-38 U/L LAB 2345-7(LOINC) Glucose SerPl-mCnc 107 High 74-99 mg/dL Result Comment: The [place] [employer] Association (ADA) provides guidance for cutoff values for fasting glucose and random glucose. The ADA defines fasting as no caloric intake for at least 8 hours. Fasting plasma glucose results between 100 to 125 mg/dL indicate increased risk for diabetes (prediabetes). Fasting plasma glucose results greater than or equal to 126 mg/dL meet the criteria for diagnosis of diabetes. In the absence of unequivocal hyperglycemia, results should be confirmed by repeat testing. In a patient with classic symptoms of hyperglycemia or hyperglycemic crisis, random plasma glucose results greater than or equal to 200 mg/dL meet the criteria for diagnosis of diabetes. Reference: Standards of Medical Care in Diabetes 2016, [place] [employer]. Diabetes Care. 2016.39(Suppl 1). LAB 3094-0(LOINC) BUN SerPl-mCnc 32 High 7-21 mg/ dL LAB 2160-0(LOINC) Creat SerPl-mCnc 1.77 High 0.58-0.96 mg/dL LAB 2951-2(LOINC) Sodium SerPl-sCnc 138 136-144 mmol/L LAB 2823-3(LOINC) Potassium SerPl-sCnc 4.7 3.7-5.1 mmol/L LAB 2075-0(LOINC) Chloride SerPl-sCnc 102 98-107 mmol/L LAB 2028-9(LOINC) CO2 SerPl-sCnc 23 22-30 mmo l/L LAB 47120-8(LOINC) Anion Gap SerPl-sCnc 13 8-15 mmol/L LAB 45657-7(LOINC) Creatinine + eGFR Pnl SerPlBld 31 Low >=60 mL/min/1 .73m??? Result Comment: Estimated Gl omerular Filtration Rate (eGFR) is calculated using the 2020 CKD-EPI creatinine equation. This equation utilizes serum creatinine, sex, and age as parameters. The creatinine assay has traceable calibration to isotope dilution-mass spectrometry. Refer to KDIGO guidelines for clinical interpretation. In patients with unstable renal function, e.g. those with acute kidney injury, the eGFR may not accurately reflect actual GFR. Performed By: #### 38569-2, 3084-1, 54949-3 #### [facility] CLIA [id number] [address] [place] [address] [place] MAGNESIUM SERPL-MCNC Collected: 11:06 AM Status: F Source: [facility] Comment: Specimen Type : BLOOD SPECIMEN Ordering Facility: [facility] Address: [address] [place] [address] TYPE CODE TESTS RESULT OUT OF RANGE REFERENCE UNITS LAB 14795-6(LOINC) Magnesium SerPl-mCnc 2.0 1.7-2.3 mg/dL Performed By: #### 44622-8, 3084-1, 60687-4 #### [facility] CLIA [id number] [address] [place] [address] [place] URATE SERPL-MCNC Collected: 11:06 AM Status: F Source: [facility] Comment: Specimen Type : BLOOD SPECIMEN Ordering Facility: [facility] Address: [address] [place] [address] TYPE CODE TESTS RESULT OUT OF RANGE REFERENCE UNITS LAB 3084-1(LOINC) Urate SerPl-mCnc 7.9 High 2.5-6.6 mg/dL Performed By: #### 12230-1, 3084-1, 95542-0 #### [facility] CLIA [id number] [address] [place] [address] [place] PTH-INTACT SERPL-MCNC Collected: 2023 11:06 AM Status: F Source: [facility] Comment: Specimen Type : BLOOD SPECIMEN Ordering Facility: [facility] Address: [address] [place], [place] [address] TYPE CODE TESTS RESULT OUT OF RANGE REFERENCE UNITS LAB 2731-8(LOINC) PTH-Intact SerPl-mCnc 75 High 15-65 pg/mL Performed By: #### 2731-8, 3 016-3, 3024-7 #### [facility] CLIA [id number] [address] [place] [id number] [place], [place] [id number] [place] T4 FREE SERPL-MCNC Collected: 12/06/202 4 11:06 AM Status: F Source: [facility] Comment: Specimen Type : BLOOD SPECIMEN Ordering Facility: [facility] Address: [address] [place] [address] TYPE CODE TESTS RESULT OUT OF RANGE REFERENCE UNITS LAB 3024-7([facility]) T4 Free SerPl-mCnc 1.2 0.9-1.7 ng/dL Performed By: #### 2731-8, 3 016-3, 302-7 #### [facility] CLIA [id number] [address] [place] [address] [place] TSH SERPL-ACNC Collected: 11:06 AM Status: F Source: [facility] Comment: Specimen Type : BLOOD SPECIMEN Ordering Facility: [facility] Address: [address] [place] [address] TYPE CODE TESTS RESULT OUT OF RANGE REFERENCE UNITS LAB 3016-3([facility]) TSH SerPl-aCnc 2.880 0.270-4.200 mIU/L Performed By: #### 2731-8, 3 016-3, 3027 #### [facility] CLIA [id number] [address] [place] [address] [place] CBC W AUTO DIFF BLD Collected: 07/21/2024 11:06 AM S tatus: F Source: [facility] Comment: Specimen Type : BLOOD SPECIMEN Ordering Facility: [facility] Address: [address] [place] [address] TYPE CODE TESTS RESULT OUT OF RANGE REFERENCE UNITS LAB 6690-2(LOINC) WBC # Bld Auto 9.35 3.70-11.00 k/uL LAB 789-8(LOINC) RBC # Bld Auto 3.63 Low 3.90-5.20 m/ uL LAB 718-7(LOINC) Hgb Bld-mCnc 11.0 Low 11.5-15.5 g/dL LAB 4544-3(LOINC) Hct VFr Bld Auto 33.3 Low 36.0-46.0 % LAB 787-2(LOINC) MCV RBC Auto 91.7 80.0-100.0 fL LAB 785-6([facility]) MCH RBC Qn Auto 30.3 26.0-34.0 p g LAB 786-4([facility]) MCHC RBC Auto-mCnc 33.0 30.5-36.0 g/dL LAB 04197-5([facility]) RDW RBC-Rto 13.3 11.5-15.0 % LAB 777-3([facility]) Platelet # Bld Auto 353 150-400 k/uL LAB 46438-0([facility]) PMV Bld Auto 9.2 9.0-12.7 fL LAB 770-8([facility]) Neutrophils/leuk NFr Bld Auto 66.8 % LAB 751-8([facility]) Neutrophils # Bld Auto 6.24 1.45-7.50 k/uL LAB 736-9([facility]) Lymphocytes/leuk NFr Bld Auto 21.1 % LAB 731-0([facility]) Lymphocytes # Bld Auto 1.97 1.00-4.00 k/uL LAB 5905-5([facility]) Monocytes/leuk NFr Bld Auto 10.7 % LAB 742-7([facility]) Monocytes # Bld Auto 1.00 High <0.87 k/uL LAB 713-8([facility]) Eosinophil/leuk NFr Bld Auto 0.4 % LAB 711-2([facility]) Eosinophil # Bld Auto 0.04 <0.46 k/uL LAB 706-2([facility]) Basophils/leuk NFr Bld Auto 0.5 % LAB 704-7([facility]) Basophils # Bld Auto 0.05 <0.11 k/uL LAB 30536-8([facility]) Imm Granulocytes/shaun k NFr Bld Auto 0.5 % LAB 46975-3([facility]) Imm Granulocytes # Bld Auto 0.05 <0.10 k/uL LAB 47666-6([facility]) nRBC/100 WBC Bld-Rto 0.0 /100 WBC LAB 771-6([facility]) nRBC # Bld Auto <0.01 <0.01 k/u L LAB 45264-8([facility]) Differential method Bld Auto Performed By: #### 32700-5 # ### [facility] CLIA [id number] [address] [place] [id number] [place] RENAL ARTERY [facility] Observed: 10:56 AM Status: F Source: [facility]vasive [facility] Renal or Mesenteric Duplex Bilateral/Complete Date of service/time: 07/21/2024 10:56:07 AM Name: PRAVEEN PARKINSON Date of : 1955 Age: 69 years Gender: F Clinical Indication New onset or worsening hypertension. TECHNIQUE -------- A visceral duplex ultrasound examination was performed, including grayscale imaging and color Doppler and spectral Doppler examination of the below mentioned arteries and veins. FINDINGS -------- Aorta at renals PSV: 119 cm/s. EDV: 0 cm/s. Right renal artery origin PSV: 97 cm/s. EDV: 9 cm/s. Right renal artery proximal PSV: 69 cm/s. EDV: 11 cm/s. Right renal artery mid PSV: 112 cm/s. EDV: 15 cm/s. Right renal artery distal PSV: 44 cm/s. EDV: 6 cm/s. Right renal artery to aortic ratio (RAR): 0.9 Right kidney: Size: 10.3 cm. Right parenchyma resistive index and acceleration time Upper pole RI: 0.75 AT: 4 msec. Mid pole RI: 0.79 AT: 20 msec. Lower pole RI: 0.74 AT: 24 msec. Right renal vein patent. Left renal artery origin PSV: 112 cm/s. EDV: 9 cm/s. Left renal artery proximal PSV: 95 cm/s. EDV: 11 cm/s. Left renal artery mid PSV: 97 cm/s. EDV: 11 cm/s. Left renal artery distal PSV: 105 cm/s. EDV: 13 cm/s. Left renal artery to aortic ratio (RAR): 0.9 Left kidney: Size: 11.9 cm. Left parenchyma resistive index and acceleration time Upper pole RI: 0.78 AT: 16 msec. Mid pole RI: 0.79 AT: 12 msec. Lower pole RI: 0.82 AT: 16 msec. Left renal vein patent. RAR not accurate due to high aortic velocities. IMPRESSION Technically difficult exam due to patient's body habitus. RIGHT RENAL Right renal artery: 0-59% stenosis. No evidence of hemodynamically significant stenosis. LEFT RENAL Left renal artery: 0-59% stenosis. No evidence of hemodynamically significant stenosis. Technologist: Victorina Underwood RVT, [facility] Ordering physician: LAZARO HEMPHILL Interpreting physician: VANESA Viramontes DO Final [employer] [facility] Image : [id number] See Link below for Image PROGRESS Observed: 05/30/2024 4:13 PM Status: COMPLETED Source: [facility] ID: [id number] Author: ARYAN MOORE APRN.POSTIE Service: ? Author Type: Nurse Practitioner Type: Progress Notes Filed: 05/30/2024 16:56 Note Text: Department of Kidney Medicine Medical Specialties [facility] SERVICE DATE: 05/30/2024 SERVICE TIME: 4:14 PM CHIEF COMPLAINT: CKD follow up I have communicated my name and active licensure. The patient's identity and physical location were verified at the time of this visit. Either the patient or their legal district sales representative has been informed of the risks and benefits of -- and alternatives to -- treatment through a remote evaluation and consents to proceed with the evaluation remotely. HPI: Ms. Parkinson is a 69 year old female who presents with CKD and HTN follow up See prev visit notes for full details. 03/23/[address] Hemphill Started on Irbesartan 150mg daily Clonidine titrated off; some worsening Alzheimer's symptoms while tapering and then resolved after 48hrs. We should consider SGLT2 inh in the future as well. Advised on PPIs>>since that time she has started Pepcid in place of prilosec Will plan to update labs at [facility] today for follow up, feeling fine with the exception of headaches. Appetite is variable. Sometimes experiences nausea, no vomiting, no diarrhea or constipation. No urinary issues. Intermittent ankle swelling, no bad. Intermittent shortness of breath with ambulation. Sometimes experiences chest discomfort if she is breathing hard, particularly with exercises done with PT. No lightheadedness. Home bp has been ~ 130/68 Home wt 175# Home blood sugars have been good,usually 90s-106 PAST MEDICAL HISTORY: PAST MEDICAL HISTORY Diagnosis Date Asthma Class 1 obesity due to excess calories without serious comorbidity with body mass index (BMI) of 33.0 to 33.9 in adult CVA (cerebral vascular accident) ([facility]) 2009 again 2014 Depression GERD (gastroesophageal reflux disease) Heart disease HTN (hypertension) Hyperlipidemia Hyperlipidemia Hypertension Hypoglycemia associated with diabetes ([facility]) Myocardial infarction ([facility]) Osteoporosis S/P PTCA (percutaneous transluminal coronary angioplasty) Type 2 diabetes mellitus with hyperglycemia ([facility]) PAST SURGICAL HISTORY: PAST SURGICAL HISTORY Procedure Laterality Date SECTION HX CORONARY ARTERY BYPASS GRAFT HX 1998 2 vessels PAST SURGICAL HISTORY OF Right 1984 adrenalectomy PAST SURGICAL HISTORY OF straighten Nasal Septum TONSILLECTOMY HX FAMILY HISTORY: FAMILY HISTORY Adopted: Yes Problem Relation Age of Onset other (Unknown) Other SOCIAL HISTORY: Social History Tobacco Use Smoking status: Former Smokeless tobacco: Never Substance Use Topics Alcohol use: No Drug use: No MEDICATIONS: metFORMIN (GLUCOPHAGE) 500 mg tablet take 1 tablet twice a day irbesartan (AVAPRO) 150 mg tablet Take 1 tablet by mouth once daily. JANUVIA 50 mg tablet take 1 tablet daily QNASL 80 mcg/actuation budesonide (PULMICORT) 0.5 mg/2 mL nebulizer solution budesonide 0.5 mg/2 mL suspension for nebulization INHALE CONTENTS OF 1 VIAL BY NEBULIZER TWICE DAILY amitriptyline (ELAVIL) 10 mg tablet Take 1 tablet by mouth daily at bedtime. (Patient taking differently: Take 10 mg by mouth daily at bedtime. Take 2 tablets by mouth daily at bedtime) cholecalciferol (VITAMIN D-3) 50 mcg (2,000 unit) tablet Take 1 tablet by mouth once daily. mepolizumab (NUCALA SUBCUTANEOUS) Inject subcutaneously. Inject once a month omeprazole (PRILOSEC) 20 mg capsule Take 1 capsule by mouth once daily. gabapentin (NEURONTIN) 100 mg capsule Daily at bedtime montelukast (SINGULAIR) 10 mg tablet Take 1 tablet by mouth daily at bedtime. turmeric/turmeric ext/pepr ext (TURMERIC-TURMERIC EXT-PEPPER) 500-3 mg cap daily Glucosamine Sulfate (GLUCOSAMINE) 500 mg tab 2 AM , 2 PM fluticasone-vilanterol (BREO ELLIPTA) 100-25 mcg/dose inhaler Inhale 1 Inhalation as instructed once daily. cetirizine (ZYRTEC) 10 mg tablet Take 1 tablet by mouth once daily. amLODIPine (NORVASC) 5 mg tablet furosemide (LASIX) 40 mg tablet Take 20 mg by mouth once daily. nebivolol (BYSTOLIC) 10 mg tablet Take 10 mg by mouth once daily. CALCIUM ORAL Take by mouth. (Patient not taking: Reported on 01/28/2024) cloNIDine HCl (CATAPRES) 0.3 mg tablet Take 0.3 mg by mouth twice daily. Fenofibrate (LOFIBRA) 160 mg tablet Take 160 mg by mouth once daily. atorvastatin (LIPITOR) 80 mg tablet Take 80 mg by mouth once daily. nitroglycerin sublingual (NITROQUICK) 0.3 mg SL tablet Dissolve 0.3 mg under the tongue every 5 minutes as needed. ranolazine SR (RANEXA) 1,000 mg tab ER 12 hr Take by mouth. clopidogrel (PLAVIX) 75 mg tablet Take 1 tablet by mouth once daily. isosorbide mononitrate ER (IMDUR) 60 mg 24 hr tablet Take 1 tablet by mouth once daily. aspirin, enteric coated (ASPIRIN, ENTERIC COATED) 81 mg EC tablet Take 1 tablet by mouth once daily. citalopram (CELEXA) 20 mg tablet Take 1 tablet by mouth once daily. multivitamin tablet Take 1 tablet by mouth once daily. ALLERGIES: ALLERGIES Allergen Reactions Augmentin [Amoxicil* GI Upset Diarrhea, vomitting Lisinopril Cough PHYSICAL EXAM: There were no vitals taken for this visit. BP - standardized method Pulse 1 2 3 Average BP cuff location BP cuff size Constitutional: No acute distress, Responsive, Normal habitus, and Well-nourished accompanied by her Eyes: Conjunctiva clear and sclerae anicteric Ear, Nose, and Throat: Hearing normal, Lips normal, and Dentition normal Psychiatric: Alert and oriented x self, place, time, and setting Normal mood/affect DATA: Diagnostic tests reviewed for today's visit: Blood work, imaging studies, and office notes were reviewed in epic Sodium (mmol/L) Date Value 01/28/2024 135 (L) 02/10/2023 137 05/11/2022 136 Creatinine (mg/dL) Date Value 01/28/2024 1.68 (H) 02/10/2023 1.42 (H) 05/11/2022 1.66 (H) No results found for: "VITD25", "[id number]", "VITD" No results found for: "PTH", "PARATHYROID" Potassium (mmol/L) Date Value 01/28/2024 5.0 02/10/2023 4.7 05/11/2022 4.9 No results found for: "P" Calcium, Total (mg/dL) Date Value 01/28/2024 10.0 02/10/2023 10.6 (H) 05/11/2022 10.2 Hemoglobin (g/dL) Date Value 03/03/2014 14.1 03/02/2014 12.5 Hemoglobin A1C (%) Date Value 01/28/2024 5.6 05/11/2022 5.7 (H) Hemoglobin A1C (POCT) (%) Date Value 02/10/2023 6.3 Albumin/Creat Ratio (mg/g) Date Value 01/28/2024 292 (H) 11/10/2021 12 No results found for: "PCRAT" Latest Ref Rng AND Units 01/28/2024 02/10/2023 05/11/2022 BMP Glucose 74 - 99 mg/dL 94 118 84 BUN 7 - 21 mg/dL 29 17 32 Creatinine 0.58 - 0.96 mg/dL 1.68 1.42 1.66 Sodium 136 - 144 mmol/L 135 137 136 Potassium 3.7 - 5.1 mmol/L 5.0 4.7 4.9 Chloride 98 - 107 mmol/L 101 98 98 CO2 22 - 30 mmol/L 23 26 25 Anion Gap 8 - 15 mmol/L 11 13 13 Calcium 8.5 - 10.2 mg/dL 10.0 10.6 10.2 EGFR >=60 mL/min/1.73m? 33 41 34 No results found for: "COLOR", "CLARITY", "UGLUC", "UBILI", "UKET", "SPGR", "UHB", "UPH", "UPROT", "UROBILINOGEN", "NITRITES", "LEUKEST", "UWBC", "URBC", "UBACTERIA", "MIXCAST" ASSESSMENT: 69 year old female who presents with CKD likely d/t to DM, HTN and severe vasculopathy. ? 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 + albuminuria; ARB added in Mar 2024 HTN-home bp controlled; monitored by [facility] nurse Hx of CVA and known CAD--NH, s/p PTCA Hx of GERD; switched from PPI to Pepcid and symptoms controlled thus far [id number] oral rx, A1c 5.6 New diagnosis of Alzheimer's PLAN: - Update labs as per Dr Hemphill's order Complete US Watch dietary intake of sodium Activity as tolerated Continue same meds Discussed goals of CKD care; discussed kidney protective effect of Irbesartan Allowed opportunity for questions As per Dr Hemphill, will give consider to possible addition of SGLT2i in the future RT08/28/24 at 4pm virtual visit. Parts of A/P may have been copied from prior entry and amended as needed. It reflects full evaluations and pathophysiology processes involved. I spent a total of 32 minutes on the date of the service which included preparing to see the patient, [id number] patient care, completing clinical documentation, obtaining and/or reviewing separately obtained history, and counseling and educating the patient/family/caregiver. Visit CPLX Inherent EANDM Associated with [facility] ([id number]) SIGNATURE: Aryan Moore APRN.POSTIE PATIENT NAME: Praveen Parkinson DATE: May 30, 2024 TIME: 4:14 PM CC: PRIMARY CARE PHYSICIAN: Philip Ureña MD ALLERGIES DATE TYPE / CODE NAME / CODE REACTION SEVERITY SOURCE 06/01/2018 DRUG/[id number] 3(SNOMED CT) AMOXICILLIN-POT CLAVULANATE GI UPSET [facility] 02/13/2016 DRUG INGREDI/25390 1003(SNOMED CT) LISINOPRIL COUGH [facility] Drug Allergy/28790 8002(SNOMED CT) OXYCODONE/29911745(R XNORM) U [facility] Drug Allergy/89469 8002(SNOMED CT) HYDROCODONE/93555602 (RXNORM) U [facility] Drug Allergy/78827 8002(SNOMED CT) AUGMENTIN/23000122(R XNORM) Moderate (Severity Modifier) (Qualifier Value) [facility] ENCOUNTERS ADMIT/DISCHARGE ACCOUNT NUMBER ADMITTING ENCOUNTER CLASS LOCATION SOURCE 02/22/2025 [id number] ROSS FERNÁNDEZ Ambulatory Building:Unkn own [facility] 02/17/2025/02/21/20 [id number] BRITTANY POLK MD Inpatient Encounter BuildinR oom: [id number] [facility] 01/25/2025/01/26/20 [id number] [facility] 01/23/2025/01/24/20 [id number] [facility] 01/03/2025/01/04/20 [id number] [facility] 08/28/2024/08/28/19 [id number] [facility] 08/02/2024/08/02/20 [id number] [facility] 07/21/2024/07/21/20 24 [id number] [facility] 07/21/2024/07/21/20 24 [id number] [facility] 05/30/2024/05/30/20 24 [id number] [facility] PAYERS ENCOUNTER GUARANTOR PAYER SUBSCRIBER SOURCE 02/22/2025 PRAVEEN SUNG: [id number] [place] [address] [id number]: () Primary Insurance:MEDICARE RECURRINGPolicy Number: [id number] Date:Plan Name:STEFANY DAVIESERDOB: [id number] [address] [place] [address] [id number] [facility] 02/22/2025 Secondary Insurance: FOR LIFE RECURRINGPolicy Number: [id number] Date:Plan Name:SANDER PARKINSONDOB: [id number] [address] [place] [address] [id number] [facility] 02/17/2025 PRAVEEN DAVIESERDOB: [id number] [address] [place] [address] [id number]: () Primary Insurance:MEDICARE INPATIENTPolicy Number: [id number] Date:Plan Name:STEFANY DAVIESERDOB: [id number] [id number] [place] [address] [phone] [facility] 02/17/2025 Secondary Insurance: FOR LIFE INPATIENTPolicy Number: [id number] Date: WIN SAPPB: [id number] [id number] [place] [address] [phone] [facility] 01/25/2025 Primary Insurance:MEDICARE A AND BPolicy Number: [id number] Date:0914-03-36Brof Name:Shlomo MORTON SEKOUB: [id number] [address] [facility] 01/25/2025 Secondary Insurance: FOR LIFEPolicy Number: [id number] Date:6239-67-63Hita Name:Divina MORTON SEKOUB: [id number] [address] [facility] 01/23/2025 Primary Insurance:MEDICARE A AND BPolicy Number: [id number] Date:7317-88-86Qznl Name:Shlomo MORTON SEKOUB: [id number] 01/23/2025 Secondary Insurance: FOR LIFEPolicy Number: [id number] Date:3713-69-47Oyzx Name:Divina SAPPB: [id number] [id number] [place] [address] 01/03/2025 Primary Insurance:MEDICARE A AND BPolicy Number: [id number] Date:0094-96-01Xplu Name:Shlomo SAPPB: [id number] [address] 01/03/2025 Secondary Insurance: FOR LIFEPolicy Number: [id number] Date:7920-32-22Whmf Name:Divina SAPPB: [id number] 08/28/2024 Primary Insurance:MEDICARE A AND BPolicy Number: [id number] Date:1524-12-35Dqrg Name:Shlomo SAPPB: [id number] 08/28/2024 Secondary Insurance: FOR LIFEPolicy Number: [id number] Date:4386-21-02Vkec Name:Divina SAPPB: [id number] 08/02/2024 Primary Insurance:MEDICARE A AND BPolicy Number: [id number] Date:9106-59-21Mhca Name:Shlomo SAPPB: [id number] 08/02/2024 Secondary Insurance: FOR LIFEPolicy Number: [id number] Date:2704-02-57Wnzd Name:Divina SAPPB: [id number] 07/21/2024 Primary Insurance:MEDICARE A AND BPolicy Number: [id number] Date:6877-80-07Yhfz Name:Shlomo SUNG: [id number] 07/21/2024 Secondary Insurance: FOR LIFEPolicy Number: [id number] Date:1825-74-25Uwjk Name:Divina SAPPB: [id number] 07/21/2024 Primary Insurance:MEDICARE A AND BPolicy Number: [id number] Date:3333-84-22Exld Name:Shlomo SAPPB: [id number] 07/21/2024 Secondary Insurance: FOR LIFEPolicy Number: [id number] Date:1003-10-78Ndpq Name:Divina SAPPB: [id number] 05/30/2024 Primary Insurance:MEDICARE A AND BPolicy Number: [id number] Date:9427-76-65Ajvb Name:Shlomo SAPPB: [id number] 05/30/2024 Secondary Insurance: FOR LIFEPolicy Number: [id number] Date:3319-34-23Xrra Name:Divina SAPPB: [id number]
[2025-05-14 09:15] VITALS: BP 124/69; PULSE 77; RESP 16; TEMP 35.9; O2SAT 94; BMI 34.0
== END 2025-05-14 23:59 | disposition home or self-care (01) ==
LOC: MEDOUTP 09:01
PROVIDERS: PCP Family Medicine; Referring Provider Internal Medicine Pulmonary Disease; Visit Provider Internal Medicine Pulmonary Disease
DX: J45.50 Severe persistent asthma, uncomplicated (principal)
CPT/HCPCS: 96372; J2182

== ENCOUNTER 2025-06-13 09:04 | Outpatient (CLI) | payer MEDICARE, OTHER, SELFPAY ==
[2025-06-13 09:10] VITALS: BP 147/60; PULSE 81; RESP 20; TEMP 36; O2SAT 94
== END 2025-06-13 23:59 | disposition home or self-care (01) ==
LOC: MEDOUTP 09:05
PROVIDERS: PCP Family Medicine; Referring Provider Internal Medicine Pulmonary Disease; Visit Provider Internal Medicine Pulmonary Disease
DX: J45.50 Severe persistent asthma, uncomplicated (principal)
CPT/HCPCS: 96372; J2182

== ENCOUNTER 2025-07-11 12:51 | Outpatient (CLI) | payer MEDICARE, OTHER, SELFPAY ==
[2025-07-11 13:09] VITALS: BP 135/94; PULSE 78; RESP 16; TEMP 35.7; O2SAT 94; BMI 33.3
== END 2025-07-11 23:59 | disposition home or self-care (01) ==
LOC: MEDOUTP 12:51
PROVIDERS: PCP Family Medicine; Referring Provider Internal Medicine Pulmonary Disease; Visit Provider Internal Medicine Pulmonary Disease
DX: J45.50 Severe persistent asthma, uncomplicated (principal)
CPT/HCPCS: 96372; J2182

== ENCOUNTER 2025-08-06 12:33 | Outpatient (CLI) | payer MEDICARE, OTHER, SELFPAY ==
[2025-08-06 12:54] VITALS: BP 138/79; PULSE 76; RESP 16; TEMP 36.2; O2SAT 96; BMI 33.3
== END 2025-08-06 23:59 | disposition home or self-care (01) ==
LOC: MEDOUTP 12:33
PROVIDERS: PCP Family Medicine; Referring Provider Internal Medicine Pulmonary Disease; Visit Provider Internal Medicine Pulmonary Disease
DX: J45.50 Severe persistent asthma, uncomplicated (principal)
CPT/HCPCS: 96372; J2182